=== PATIENT | female | born 1945 | race Caucasian/White ===

== ENCOUNTER → 2017-10-14 09:15 | Outpatient (CLI) | payer MEDICARE, OTHER, SELFPAY ==
--- NOTE | 2017-10-14 09:23 | RAD_ITS ---
STUDY: X-RAY - LEFT KNEE REASON FOR EXAM: Female, 72 years old. Pain and swelling TECHNIQUE: 4 view(s) of the knee. COMPARISON: None. FINDINGS: Normal visualized distal femur. Normal visualized proximal tibia and fibula. Normal proximal tibiofibular articulation. Normal medial femorotibial compartment. Normal lateral femorotibial compartment. Normal patellofemoral articulation. The soft tissue structures are unremarkable. RAD/Knee 4 or More Views IMPRESSION: Normal x-ray examination of the knee. Electronically Signed: Arturo Rome MD at 9:56 EDT , Service support ,
== END ==
PROVIDERS: Family Provider Internal Medicine; PCP Internal Medicine; Visit Provider Internal Medicine
DX: M25.562 Pain in left knee (principal)
CPT/HCPCS: 73564

== ENCOUNTER → 2017-10-16 05:57 | Outpatient (CLI) | payer MEDICARE, OTHER, SELFPAY ==
[2017-10-16 07:19] LABS: Absolute Neutrophil Count 2.7 X10^3/uL (2.0-7.7); Basophil# 0.03 X10^3/uL; Basophil% 0.7 % (0-1); Eosinophil# 0.24 X10^3/uL; Eosinophils% 5.3 % (0-5); Hematocrit 40.8 % (37-47); Hemoglobin 13.1 g/dl (12.0-15.0); Lymphocyte % 26.3 % (19-41); Mean Corp Hgb Conc 32.1 g/gl (32-36); Mean Corpuscular Hgb 29.1 pg (27.0-32.0); Mean Corpuscular Volume 90.7 fL (81-99); Mean Platelet Vol. 9.6 fl (6.2-12.0); Monocyte# 0.38 X10^3/uL; Monocyte% 8.3 % (0-10); Neutrophil # 2.72 X10^3/uL (2.7-7.7); Neutrophil % 59.4 % (47-70); Platelet Count 237 K/mm3 (150-450); RBC Distribution Width CV 12.8 % (11.6-14.6); RBC Distribution Width SD 42.5 fl (35.1-43.9); White Blood Count 4.6 K/mm3 (4.4-11.0)
[2017-10-16 07:20] LABS: POSITIVE COUNT NO; POSITIVE DIFFERENTIAL NO; POSITIVE MORPHOLOGY NO
[2017-10-16 07:34] LABS: ALB/GLOB Ratio 1.1 RATIO (0.9-2.4); AST(SGOT) 21 U/L (15-37); Alanine Aminotransfer ALT/SGPT 25 U/L (13-56); Albumin, Serum 3.9 g/dL (3.2-5.0); Alkaline Phosphatase 65 U/L (45-117); Anion Gap 5 (5-15); BUN 17 mg/dL (7-18); BUN/Creat Ratio 22.6 RATIO (10-20); Chloride 102 mmol/L (98-107); Creatinine, Serum 0.75 mg/dL (0.55-1.02); EST Glomerular Filtration Rate 81 mL/min (>60); Est Glom Filt Rate - Afr Amer 98 mL/min (>60); Globulin 3.5 g/dL (2.2-4.2); Glucose 96 mg/dL (74-106); Potassium 3.8 mmol/L (3.5-5.1); Protein, Total 7.4 g/dL (6.4-8.2); Rheumatoid Factor < 10.0 IU/mL (<15); Sodium Level 138 mmol/L (136-145)
[2017-10-16 07:40] LABS: Microalbumin,Random Urine < 5.0 mg/L (NO RANGE EST.)
[2017-10-17 14:27] LABS: Hep C Antibodies 0.1 s/co ratio (0.0-0.9)
[2017-10-18 12:08] LABS: CHOLESTEROL TOTAL 164 mg/dL (100-199); HDL-C 56 mg/dL (>39); HDL-P TOTAL 38.3 umol/L (>=30.5); SMALL LDL-P 538 nmol/L (<=527); TRIGLYCERIDES 86 mg/dL (0-149)
[2017-10-18 13:00] LABS: LDL SIZE 20.4 nm (>20.5); LDL-C 91 mg/dL (0-99); LDL-P 1173 nmol/L (<1000); LP-IR SCORE ** 37 (<=45)
== END ==
PROVIDERS: Family Provider Internal Medicine; PCP Internal Medicine; Visit Provider Internal Medicine
DX: I10 Essential (primary) hypertension (principal); E78.5 Hyperlipidemia, unspecified; R73.01 Impaired fasting glucose; M25.50 Pain in unspecified joint; Z11.59 Encounter for screening for other viral diseases
CPT/HCPCS: 36415; 80053; 80061; 82043; 82570; 83704; 85025; 86431; 86803

== ENCOUNTER → 2017-10-16 10:27 | Outpatient (CLI) | payer MEDICARE, OTHER, SELFPAY ==
--- NOTE | 2017-10-16 10:44 | VDLE_ITS ---
Reason For Study: LEG PAIN RIGHT LEFT CFV is compressible, spontaneous, phasic, GSV is normal. competent and demonstrates normal CFV is compressible, spontaneous, phasic, augmentation. competent, and demonstrates normal Procedure augmentation. Exam performed in department. FV is compressible, spontaneous, phasic, A preliminary report was called and/or faxed competent and demonstrates normal to Dr. Maria. augmentation. POP V is compressible, spontaneous, phasic, competent and demonstrates normal augmentation. T/P Trunk is compressible. PTV is compressible. LT PerV is compressible. Interpretation Summary Deep veins of the left lower extremity are patent and compressible segmentally. There is no evidence of left lower extremity deep vein thrombosis. Valvular competence appears intact within the proximal deep venous system on the left . The left greater saphenous vein appears patent and compressible segmentally. Ordering Physician: Lexi Maria Referring Physician: Lexi Maria Performed By: Neda Patino RVT
== END ==
PROVIDERS: Family Provider Internal Medicine; PCP Internal Medicine; Visit Provider Internal Medicine
DX: M79.89 Other specified soft tissue disorders (principal); M25.462 Effusion, left knee; I10 Essential (primary) hypertension; E78.5 Hyperlipidemia, unspecified; R73.01 Impaired fasting glucose; M25.50 Pain in unspecified joint; Z11.59 Encounter for screening for other viral diseases
CPT/HCPCS: 36415; 80053; 80061; 82043; 82570; 83704; 85025; 86431; 86803; 93971

== ENCOUNTER → 2017-10-18 13:30 | Outpatient (CLI) | payer MEDICARE, OTHER, SELFPAY ==
--- NOTE | 2017-10-18 13:38 | MRI_ITS ---
STUDY: MRI LEFT KNEE REASON FOR EXAM: Female, 72 years old. Pain and tenderness TECHNIQUE: Standardized fat and water weighted pulse sequences were obtained in all 3 orthogonal planes. COMPARISON: None. FINDINGS: Normal medial meniscus. Normal hyaline cartilage of the medial femorotibial compartment. Normal medial femoral condyle and tibial plateau. There is a partial sprain of the MCL with interstitial and periligamentous edema, series 6 images - 15. Normal distal semimembranosus, gracilis and semitendinosus tendons. Lateral meniscus tear of the anterior horn and body, series 6 images through . Normal hyaline cartilage of the lateral femorotibial compartment. Normal lateral femoral condyle and tibial plateau. Normal proximal tibiofibular articulation. Normal lateral collateral (fibular) ligament. Normal popliteus tendon. Normal biceps femoris tendon. Normal anterior cruciate ligament (ACL). Normal posterior cruciate ligament (PCL). There is arthrosis of the patellofemoral articulation. There is diffuse, greater than 50% thickness articular cartilage loss of the patellofemoral compartment. Normal medial and lateral patellar retinaculum. Normal quadriceps tendon. Normal patellar tendon. Normal Hoffa's fat pad. There is a moderate volume joint effusion. The soft tissues are unremarkable. The otherwise visualized osseous structures are unremarkable. MRI/Lower Ext Joint Only (Routine) IMPRESSION: Lateral meniscus tear. Medial collateral ligament sprain. Joint effusion with popliteal cyst. Electronically Signed: Marin Tierney MD at 14:53 EDT , Service support ,
== END ==
PROVIDERS: Family Provider Internal Medicine; PCP Internal Medicine; Visit Provider Orthopaedic Surgery
DX: M25.562 Pain in left knee (principal)
CPT/HCPCS: 73721

== ENCOUNTER → 2017-10-28 06:54 | Outpatient (CLI) | payer MEDICARE, OTHER, SELFPAY ==
--- NOTE | 2017-10-28 07:01 | BI_ITS ---
MAMMOGRAPHY - BILATERAL SCREENING REASON FOR EXAM: Female, 72 years old. Routine annual screening examination. PERTINENT HISTORY: Remote left excisional breast biopsy. TECHNIQUE: Digital bilateral breast haroldo (3D mammographic acquisition) in the CC and MLO projections. 2-D mediolateral oblique (MLO) and craniocaudad (CC) views of both breasts were obtained. CAD: Full Field Digital Mammography with Computer Added Detection was performed. COMPARISON: Comparison is made with prior study dated October 10, 2016 and September 05, 2015. FINDINGS: Breast Composition: The breasts are heterogeneously dense, which may obscure small masses. There are no dominant masses or suspicious calcifications. No other significant abnormalities are identified. There has been no significant change since the prior study. BI/SCREENING MAMM (CAD), BILAT IMPRESSION: Stable bilateral screening mammogram. Yearly follow-up mammogram recommended. (A) ASSESSMENT CATEGORY: BIRADS Category 1: Negative. A letter regarding these results will be sent to the patient by the facility within 30 days. Approximately 10% of breast cancers are not detected by mammography. A normal mammogram should not delay biopsy of a clinically suspicious abnormality. [id number] Electronically Signed: Kvng Gilman MD at 8:48 EDT Tel [phone], Service support ,
== END ==
PROVIDERS: Family Provider Internal Medicine; PCP Internal Medicine; Visit Provider Internal Medicine
DX: Z12.31 Encounter for screening mammogram for malignant neoplasm of breast (principal)
CPT/HCPCS: 77063; 77067

== ENCOUNTER → 2018-01-08 07:11 | Outpatient (CLI) | payer MEDICARE, OTHER, SELFPAY ==
--- NOTE | 2018-01-08 07:15 | CT_ITS ---
STUDY: CT ABDOMEN WITH CONTRAST REASON FOR EXAM: Female, 72 years old. Pain. Follow-up wall thickening of the colon. RADIATION DOSAGE (If Supplied By Facility): CTDIvol = ( 11.91 ) mGy, DLP = ( 372.05 ) mGycm TECHNIQUE: Transaxial images were obtained post I.V. administration of 100 ml of Isovue 300 contrast, and without oral contrast. Sagittal and coronal images were reconstructed. Individualized dose optimization techniques were used for this CT. COMPARISON: June 06, 2017 FINDINGS: The visualized lung bases are unremarkable. The visualized portions of the heart are within normal limits. Normal liver. Normal gallbladder and extrahepatic biliary system. Normal spleen. Normal pancreas. Normal bilateral adrenal glands. Normal right kidney. Normal left kidney. Normal visualized stomach. Normal small intestine. There are multiple colonic diverticula consistent with diverticulosis. There is resolution of previously noted wall thickening on the left. The appendix is visualized and appears normal. There is diffuse atherosclerotic calcification of the abdominal aorta, without a demonstrated aneurysm. Normal inferior vena cava. Normal retroperitoneum. Normal abdominal wall. Mild degenerative change of the spine. CT/Abdomen WITH IV Contrast IMPRESSION: Colonic diverticulosis. Improvement of previously noted wall thickening. No obstruction. Electronically Signed: Marin Tierney MD at 1:51 EDT , Service support ,
[2018-01-08 07:36] LABS: CREATININE FINGERSTICK 0.7 mg/dL (0.55-1.02); EGFR FINGERSTICK > 60.0000 mL/min (>60)
== END ==
PROVIDERS: Family Provider Internal Medicine; PCP Internal Medicine; Visit Provider Internal Medicine
DX: Z12.31 Encounter for screening mammogram for malignant neoplasm of breast (principal); R93.5 Abnormal findings on diagnostic imaging of other abdominal regions, including retroperitoneum
CPT/HCPCS: 74160; Q9967

== ENCOUNTER → 2018-01-29 06:08 | Outpatient (CLI) | payer MEDICARE, OTHER, SELFPAY ==
[2018-01-29 06:14] LABS: Bacteria 0 SEEN /hpf (None Seen); Mucous, Urine 0 SEEN /hpf (<or=2+); Red Blood Cells-Urine 0 SEEN /hpf (0-5); Squamous Epithelial Cells - UA 0 SEEN /hpf (5-10); White Blood Cells 0 SEEN /hpf (0-5)
[2018-01-29 07:59] LABS: ALB/GLOB Ratio 1.2 RATIO (0.9-2.4); AST(SGOT) 24 U/L (15-37); Alanine Aminotransfer ALT/SGPT 28 U/L (13-56); Alkaline Phosphatase 63 U/L (45-117); Anion Gap 7 (5-15); BUN 22 mg/dL (7-18); BUN/Creat Ratio 28.6 RATIO (10-20); Calcium,Total 9.2 mg/dL (8.5-10.1); Chloride 105 mmol/L (98-107); Creatinine, Serum 0.77 mg/dL (0.55-1.02); EST Glomerular Filtration Rate 79 mL/min (>60); Est Glom Filt Rate - Afr Amer 95 mL/min (>60); Globulin 3.4 g/dL (2.2-4.2); Glucose 89 mg/dL (74-106); Potassium 3.7 mmol/L (3.5-5.1); Protein, Total 7.4 g/dL (6.4-8.2); Sodium Level 142 mmol/L (136-145)
[2018-01-29 08:03] LABS: Color, Urine Yellow (Yellow); Glucose, Dipstick Normal (Normal); Ketone-Dipstick Negative (Negative); Leukocyte Esterase-Dipstick 25 /ul (Negative); Nitrite-Dipstick Negative (Negative); Occult Blood-Urine 10 /ul (Negative); Protein-Dipstick Negative (Negative); Specific Gravity, Urine 1.005 (1.002-1.030); Urine Bilirubin Dipstick Negative (Negative); Urine Clarity Clear (Clear); Urine Urobilinogen Normal (Normal); Urine pH 6.5 (5.0 - 8.0)
[2018-01-29 08:24] LABS: Vitamin D,25 Hydroxy 35.3 ng/mL (29.95-100.01)
[2018-01-31 12:08] LABS: CHOLESTEROL TOTAL 174 mg/dL (100-199); HDL-C 61 mg/dL (>39); HDL-P TOTAL 37.6 umol/L (>=30.5); SMALL LDL-P 383 nmol/L (<=527); TRIGLYCERIDES 110 mg/dL (0-149)
[2018-01-31 14:10] LABS: LDL SIZE 20.8 nm (>20.5); LDL-C 91 mg/dL (0-99); LDL-P 1173 nmol/L (<1000); LP-IR SCORE ** <25 (<=45)
== END ==
PROVIDERS: Family Provider Internal Medicine; PCP Internal Medicine; Visit Provider Internal Medicine
DX: I10 Essential (primary) hypertension (principal); E78.5 Hyperlipidemia, unspecified; R31.9 Hematuria, unspecified; M85.80 Other specified disorders of bone density and structure, unspecified site
CPT/HCPCS: 36415; 80053; 80061; 81001; 82306; 83704; 87086

== ENCOUNTER → 2018-02-12 09:54 | Outpatient (CLI) | payer MEDICARE, OTHER, SELFPAY ==
--- NOTE | 2018-02-12 09:56 | US_ITS ---
STUDY: ULTRASOUND TRANSVAGINAL CLINICAL: Female, 72 years old. Pelvic pain TECHNIQUE: Transvaginal COMPARISON: None. FINDINGS: Normal uterine size measuring 5.7 cm in maximal craniocaudal dimension. There are no myometrial masses. Uterus is retroverted Endometrial thickness is abnormal at 7 mm. It is fluid distended and there is a hypoechoic likely polyp measuring 0.6 x 0.8 x 0.5 cm. Normal uterine cervix. Normal right ovary, measuring 2.2 x 1.1 x 1.2 cm cm. There are multiple follicles without a dominant cyst. Left ovary was previously removed There is no free fluid in the pelvis. US/Pelvic (Non ) IMPRESSION: Abnormal endometrial stripe thickening at 7 mm. The endometrium is fluid distended and there is suggestion of underlying mass. Endometrial carcinoma needs to be excluded. Biopsy recommended for further evaluation Although the left ovary has been previously removed, there is a left paraovarian cyst measuring 0.8 x 0.8 x 0.7 cm. No demonstrated free fluid Electronically Signed: Arturo Rome MD at 11:45 EDT , Service support ,
--- NOTE | 2018-02-12 10:36 | US_ITS ---
STUDY: ULTRASOUND TRANSVAGINAL CLINICAL: Female, 72 years old. Pelvic pain TECHNIQUE: Transvaginal COMPARISON: None. FINDINGS: Normal uterine size measuring 5.7 cm in maximal craniocaudal dimension. There are no myometrial masses. Uterus is retroverted Endometrial thickness is abnormal at 7 mm. It is fluid distended and there is a hypoechoic likely polyp measuring 0.6 x 0.8 x 0.5 cm. Normal uterine cervix. Normal right ovary, measuring 2.2 x 1.1 x 1.2 cm cm. There are multiple follicles without a dominant cyst. Left ovary was previously removed There is no free fluid in the pelvis. US/Transvaginal Non- IMPRESSION: Abnormal endometrial stripe thickening at 7 mm. The endometrium is fluid distended and there is suggestion of underlying mass. Endometrial carcinoma needs to be excluded. Biopsy recommended for further evaluation Although the left ovary has been previously removed, there is a left paraovarian cyst measuring 0.8 x 0.8 x 0.7 cm. No demonstrated free fluid Electronically Signed: Arturo Rome MD at 11:45 EDT , Service support ,
== END ==
PROVIDERS: Family Provider Internal Medicine; PCP Internal Medicine; Visit Provider Internal Medicine
DX: R10.2 Pelvic and perineal pain (principal)
CPT/HCPCS: 76830; 76856

== ENCOUNTER 2018-03-26 10:53 | Day surgery (SDC) | payer MEDICARE, OTHER, SELFPAY ==
[2018-03-19 11:58] LABS: Hematocrit 38.2 % (37-47); Hemoglobin 12.4 g/dl (12.0-15.0); Mean Corp Hgb Conc 32.5 g/gl (32-36); Mean Corpuscular Volume 89.5 fL (81-99); Mean Platelet Vol. 9.1 fl (6.2-12.0); Platelet Count 242 K/mm3 (150-450); RBC Distribution Width CV 12.7 % (11.6-14.6); Red Blood Count 4.27 M/mm3 (4.2-5.4); Scan Indicated on CBC? Y/N NO; White Blood Count 5.9 K/mm3 (4.4-11.0)
--- NOTE | 2018-03-26 | EMB_PTH ---
PATIENT: JONATHAN PURCELL [place] [facility] [id number] AGE/SX: 73/F ROOM: RE03/26/[address]: Dr. Stephanie Snyder MD : [id number] BED: DIS: 03/26/2018 SPEC #: [id number] RECD: 03/26/18 14:44 STATUS: CORI REParviz #: [id number] LAKESHIA: 03/26/18 00:[address]: Stephanie Snyder DEPT: SURGICAL PATHOLOGY RECD BY: Arnulfo Lugo ENTERED: 03/26/18 14:44 SP TYPE: ENDOM BX/C OTHR DR: Dr. Lexi Maria DO Tissues: Endometrium, NOS Procedures: Surgery Specimen Level IV HEADER OPERATION: Hysteroscopy, dilation and curettage, poss. polypectomy PRE-OP DIAGNOSIS: Abnormal pelvic ultrasound TISSUE SUBMITTED: Endometrial curettings and polyp MICROSCOPIC DIAGNOSIS Endometrial curettings and polyp: Benign endometrial polyp (0.4 cm in greatest dimension). Scant strips of benign endometrial epithelium, consistent with atrophic endometrium.. Fragments of blood clot and fibrovascular tissue. See comment. LYLE:anand 03/27/18 COMMENT The specimen predominantly consists of blood clots. MICROSCOPIC DESCRIPTION Slides are reviewed. GROSS DESCRIPTION Received in fixative is one container labeled with the patient's name and designated endometrial curettings and polyp. The specimen consists of multiple irregular fragments of red-pink soft tissue that in aggregate measure 2.2 x 2 x 0.2 cm. The specimen is totally submitted in one cassette. / AM:anand 03/26/18 TC:5 CPT: 68403
[2018-03-26 11:27] VITALS: BP 121/64; PULSE 58; RESP 16; TEMP 36.7; O2SAT 99; BMI 26.1
--- NOTE | 2018-03-26 13:06 | PCM.DC.D&C ---
Discharge Diet: No Restrictions Discharge Activity: May Shower, May Take a Tub Bath Lifting Restrictions: none Additional Activity Instructions:: Return to all usual activity as comfortable on 03/27/18. Take tylenol 500 - 1000 mg every 8 hrs as needed for milder cramping. You may add EITHER two Aleve (220 mg ea) or Three (200 mg tab) Ibuprofen every 8 hr for more severe pain. Call your doctor if you observe: Fever of 101 or Higher, Using more than one pad per hour, Uncontrolled pain Allergies/Adverse Reactions: Allergies No Known Allergies Allergy (Verified 03/19/18 09:13) Medications to take at Discharge Aspirin [Aspirin, Baby] 81 mg PO DAILY@0800 03/19/18 Levothyroxine [Synthroid] 100 mcg PO DAILY 03/19/18 Losartan Potassium [Losartan Potassium] 100 mg PO DAILY 03/19/18 Omeprazole [Omeprazole] 40 mg PO DAILY 03/19/18 Rosuvastatin Calcium [Rosuvastatin Calcium] 10 mg PO DAILY 03/19/18 Primary Care Physician: Lexi Maria DO [Primary Care Provider] - Test Results: Test results from this visit will be discussed in further detail at your follow-up appointment, if applicable. Please Follow Up With: Stephanie Snyder MD - [phone] When: in two weeks for postop check up.
[2018-03-26 13:10] VITALS: BP 108/51; BP 121/64; PULSE 57; RESP 16; TEMP 36.6; O2SAT 96
[2018-03-26 13:15] VITALS: BP 121/64; BP 122/59; PULSE 59; RESP 16; O2SAT 94
[2018-03-26 13:20] VITALS: BP 121/64; BP 133/61; PULSE 57; RESP 16; O2SAT 94
[2018-03-26 13:24] VITALS: BP 121/64; BP 136/62; PULSE 61; RESP 16; TEMP 36.2; O2SAT 96
--- NOTE | 2018-03-26 13:30 | PCM.OP.BLANK ---
Operative Report Date of Procedure: 03/26/18 PROCEDURE: Hysteroscopy, Dilation and curettage, Endometrial polypectomy Preoperative Diagnosis: Thickened endometrial stripe on pelvic ultrasound 7 mm with suggestion of small polyp Postop diagnosis: Thickened endometrial stripe on pelvic ultrasound 7 mm with suggestion of small polyp Anesthesia: MAC IV sedation Idalia Linares CRNA 10 cc 1% lidocaine paracervical block (Juan Snyder) Surgeon: Stephanie Snyder MD EBL: Minimal for case Drains: Red Izaguirre, minimal clear yellow urine 25 cc Complications: none Fluids: replacement Findings: Atrophic appearing cervix, not stenotic. Normal appearing atrophic endometrium. Tubal ostia visualized, atrophic Multiple diverticula noted c/w probable adenomyosis Endometrial polyp, benign appearing, at L anterior lower uterine segment, nonfriable . removed in multiple pieces. Narrative account After the R,B,Alternatives of the procedure were reviewed with the patient , informed consent was obtained. The patient was taken to the operating room with an IV running and placed in dorsal supine position of the operating table. She was given MAC IV sedation and repositioned to the dorsal lithotomy position and prepped and draped in the usual sterile fashion. A graves speculum was placed into the vagina and the cervix was brought into view. The cervix was atrophic appearing. The cervix was instilled with 10 cc of 1% lidocaine as a paracervical block using a 20 G spinal needle. A single toothed tenaculum was applied to the posterior lip of the cervix. The cervix was then gently probed and sequentially dilated to allow admission of the hysteroscope into the endometrial cavity. The hysteroscopy was performed with findings noted as above. There was an endometrial polyp noted. A polypectomy and sharp curettage was performed and pieces of tissue were withdrawn and set aside. The hysteroscope was again inserted and confirmed that the polyp was removed. One final pass was conducted with the sharp curette tip advanced through the cervix to the uterine fundus . Excellent hemostasis was noted. The single toothed tenaculum was removed from the cervix and a RayTec was used to remove any remaining tissue and blood from the upper vagina and cervix. The procedure was terminated. The speculum was removed. The patient was returned to dorsal supine position and awakened from IV sedation and transferred to her recovery room bed in stable condition after tolerating the procedure well. Sponge, lap, needle and instrument counts were correct x two. medications given intraoperatively included 10 cc of 1% lidocaine without epinephrine instilled as a paracervical block. For a complete listing of the medications given intraoperatively, see the anesthesia record.
[2018-03-26 14:00] VITALS: BP 121/64
== END 2018-03-26 14:00 | disposition home or self-care (01) ==
LOC: SDC 10:54
PROVIDERS: Family Provider Internal Medicine; PCP Internal Medicine; Visit Provider Obstetrics & Gynecology
PROC: 0UDB8ZZ Extraction of Endometrium, Via Natural or Artificial Opening Endoscopic (ICD-10-PCS; CPT 58558; principal; 2018-03-26 12:20)
DX: N84.0 Polyp of corpus uteri (principal); N85.8 Other specified noninflammatory disorders of uterus; I10 Essential (primary) hypertension; E03.9 Hypothyroidism, unspecified; E78.5 Hyperlipidemia, unspecified; H40.9 Unspecified glaucoma; K21.9 Gastro-esophageal reflux disease without esophagitis; Z79.82 Long term (current) use of aspirin; Z78.0 Asymptomatic menopausal state; Z79.899 Other long term (current) drug therapy; Z87.19 Personal history of other diseases of the digestive system
CPT/HCPCS: 58558; 36415; 85027; 86850; 86900; 88305; J7120; J2405

== ENCOUNTER 2018-05-16 14:30 | Outpatient (RCR) | payer MEDICARE, OTHER, SELFPAY ==
--- NOTE | 2018-04-29 11:57 | HP.PTEVAL_ITS ---
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 Date of Evaluation: 04/29/18 Physical Therapist: Luna Fisher - Visit Plan Frequency: 2x /Week Duration: 4-6 Weeks Plan: 2X/ week for 4-6 weeks for increase in L knee AROM, L hip and knee strength, decrease L knee swelling, gait training with HEP - Subjective Subjective: She reports that in the Spring she went to the Dr. Pt reports that she has a small tear on the L knee. Dr mentioned PT but did not do anything at the time. Swwelling is still there and she has a click in her knee. If she sits for awhile and gets up she says that it is hard. She does not want to have surgery. Pt does not really have pain but she goes to turn and will feel that her knee makes a noise or if she turns over in bed she will get a catch. She had a plantar fascitis surgery and is was worse afterwards. It seems better now. She has not done any exercise as of yet. She has a brace for her L knee but not sure what kind and it does help. - Pain L knee pain Pain Intensity (Out of 10): 0 Pain Intensity Range: 2 Comment: with certain movements - Objective Gait: walks with decrease stance time on the L. L knee AROM -4 degrees L knee ext and 123 degrees L knee Flexion. R knee AROM: 0 degrees R knee ext and 140 degrees R knee flexion. tib tuberosity R 33 cm and L 34 cm. Tight B hip flexor/ quad. Tight B HS. LE MMT: hip flex B 4/5, Knee ext B 4/5, B knee ext 4-/5, B hip abd 4/5, B hip ext 4-/5 - Goals Goal 1:: I HEP Goal Time Frame: 4-6 Weeks Goal 2:: Increase L knee AROM 0-130 degrees L knee flexion Goal Time Frame: 4-6 Weeks Goal 3:: Walk with normal gait pattern with equal stance time Goal Time Frame: 4-6 Weeks Goal 4:: Decrease freq of clicking of the L knee with gait Goal Time Frame: 4-6 Weeks - Rehabilitation Potential Rehabilitation Potential: Good - Anticipated Interventions Patient/Client Instruction: Educate patient on: Condition, Plan of Care For the Purpose of:: To decrease pain, To decrease swelling/inflammation, To increase ROM, To improve nutrient delivery to tissue, To improve muscle performance and motor function, To improve ability to perform ADL's, To improve gait and locomotor functions, To improve health of tissue, To increase flexibility/ROM Therapeutic Exercise to Include: Strength training, Flexibilty training, Gait and locomotor training, Active ROM For the Purpose of:: To decrease pain, To decrease swelling/inflammation, To increase ROM, To improve nutrient delivery to tissue, To improve muscle performance and motor function, To improve ability to perform ADL's, To improve gait and locomotor functions, To improve health of tissue, To increase flexibility/ROM Other electric stimulation: Yes Cryotherapy (ice pack, ice massage): Yes Thermo therapy (hot pack): Yes Ultrasound (thermal/non thermal): Yes For the Purpose of:: To decrease pain, To decrease swelling/inflammation, To in crease ROM, To improve nutrient delivery to tissue Thank you for the opportunity to evaluate your patient. For Medicare and Medicare HMO plans, please review the plan of care and approve it. It will need to be FAXED BACK to us at [phone] for Medicare purposes. Please let me know if there are questions or concerns regarding this plan of care. Physician Signature: Date:
--- NOTE | 2018-10-22 15:56 | HP.PT.NRP ---
HP - Discharge Summary (1) - Patient Information JONATHAN PURCELL was seen in my office for initial evaluation on 04/29/18. The following Plan of Care was established for this patient: Initial Frequency: 2x /Week Initial Duration: 4-6 Weeks - Anticipated Interventions Patient/Client Instruction: Educate patient on: Condition, Plan of Care For the Purpose of:: To decrease pain, To decrease swelling/inflammation, To increase ROM, To improve nutrient delivery to tissue, To improve muscle performance and motor function, To improve ability to perform ADL's, To improve gait and locomotor functions, To improve health of tissue, To increase flexibility/ROM Therapeutic Exercise to Include: Strength training, Flexibilty training, Gait and locomotor training, Active ROM For the Purpose of:: To decrease pain, To decrease swelling/inflammation, To increase ROM, To improve nutrient delivery to tissue, To improve muscle performance and motor function, To improve ability to perform ADL's, To improve gait and locomotor functions, To improve health of tissue, To increase flexibility/ROM Other electric stimulation: Yes Cryotherapy (ice pack, ice massage): Yes Thermo therapy (hot pack): Yes Ultrasound (thermal/non thermal): Yes For the Purpose of:: To decrease pain, To decrease swelling/inflammation, To increase ROM, To improve nutrient delivery to tissue This patient was last seen in our office 05/16/18. Pertinent comments regarding their Physical therapy will appear below: Pt did not come back. She repoerted feeling better at her last visit. DC PT At this point I will be discontinuing this patient from physical therapy. I would be happy to see this patient again in the future if found appropriate by the physician. Thank you! Luna Fisher, MPT
== END 2018-05-16 19:00 | disposition home or self-care (01) ==
LOC: PT 14:30
PROVIDERS: Family Provider Internal Medicine; PCP Internal Medicine; Referring Provider Orthopaedic Surgery; Visit Provider Orthopaedic Surgery
DX: S83.282D Other tear of lateral meniscus, current injury, left knee, subsequent encounter (principal); S83.412D Sprain of medial collateral ligament of left knee, subsequent encounter
CPT/HCPCS: 97110; 97161

== ENCOUNTER → 2018-05-23 08:20 | Outpatient (CLI) | payer MEDICARE, OTHER, SELFPAY ==
--- NOTE | 2018-05-23 08:39 | EKG12_ITS ---
Test Reason : PRE-OP Blood Pressure : / mmHG Vent. Rate : 055 BPM Atrial Rate : 055 BPM P-R Int : 152 ms QRS Dur : 092 ms QT Int : 404 ms P-R-T Axes : 026 000 -05 degrees QTc Int : 386 ms Sinus bradycardia Otherwise normal ECG Confirmed by ASHLY JORGE, JACE ([id number]), acquisition editor BRICE CLAYTON ([id number]) on 05/26/2018 3:58:19 PM Referred By: Blake Jon Confirmed By:JACE LIMON MD
[2018-05-23 08:50] LABS: Hematocrit 38.7 % (37-47); Hemoglobin 12.8 g/dl (12.0-15.0); Mean Corp Hgb Conc 33.1 g/gl (32-36); Mean Corpuscular Hgb 29.6 pg (27.0-32.0); Mean Corpuscular Volume 89.4 fL (81-99); Mean Platelet Vol. 9.1 fl (6.2-12.0); Platelet Count 240 K/mm3 (150-450); RBC Distribution Width CV 12.6 % (11.6-14.6); RBC Distribution Width SD 40.5 fl (35.1-43.9); Red Blood Count 4.33 M/mm3 (4.2-5.4); White Blood Count 5.1 K/mm3 (4.4-11.0)
[2018-05-23 08:51] LABS: Scan Indicated on CBC? Y/N NO
[2018-05-23 09:24] LABS: Anion Gap 7 (5-15); BUN 17 mg/dL (7-18); Calcium,Total 8.9 mg/dL (8.5-10.1); Chloride 106 mmol/L (98-107); Creatinine, Serum 0.77 mg/dL (0.55-1.02); EST Glomerular Filtration Rate 78 mL/min (>60); Est Glom Filt Rate - Afr Amer 95 mL/min (>60); Glucose 94 mg/dL (74-106); Potassium 3.9 mmol/L (3.5-5.1); Sodium Level 141 mmol/L (136-145)
== END ==
PROVIDERS: Family Provider Internal Medicine; PCP Internal Medicine; Referring Provider Orthopaedic Surgery; Visit Provider Orthopaedic Surgery
DX: Z01.810 Encounter for preprocedural cardiovascular examination (principal); Z01.818 Encounter for other preprocedural examination
CPT/HCPCS: 36415; 80048; 85027; 93005

== ENCOUNTER → 2018-06-24 12:49 | Outpatient (CLI) | payer MEDICARE, OTHER, SELFPAY ==
--- NOTE | 2018-06-24 12:52 | ECHOD_ITS ---
Reason For Study: NON RHEUMATIC MITRAL REGURGITATION Procedure This was a 2D Doppler, Color Flow transthoracic echocardiogram. The exam was of adequate technical quality. Exam performed in department. Left Ventricle Normal LV size. Left ventricular systolic function is normal. The estimated ejection fraction is 65 %. Diastolic function is indeterminate. No regional wall motion abnormalities noted. Right Ventricle Normal RV size. Normal systolic function. Atria Normal left atrium. Normal right atrium. No doppler evidence for ASD. Mitral Valve There is no mitral annular calcification. Mild diffuse mitral valve thickening. Mild-Moderate (1-2+) mitral valve insufficiency. Tricuspid Valve Normal tricuspid valve. Mild to moderate (1-2+) tricuspid valve insufficiency. Right ventricular systolic pressure estimated to be 31 mmHg. Aortic Valve Trisinus/trileaflet aortic valve. Mild focal aortic valve calcification. Trivial aortic valve insufficiency. Pulmonic Valve The pulmonic valve is not well visualized. Mild (1+) pulmonic valve insufficiency. Great Vessels Normal sized aortic root. Calcified aortic root. Pericardium/Pleural Trivial pericardial effusion. There are no echocardiographic indications of cardiac tamponade. MMode/2D Measurements & Calculations LVIDd: 4.8 cm IVSd: 0.87 cm Ao root diam: 3.1 cm LVIDs: 2.4 cm LVPWd: 0.70 cm RVDd: 3.2 cm FS: 49.4 % LAV(MOD-bp): 38.3 ml LVAd ap4: 23.5 cm2 SV(MOD-sp4): 42.8 ml LAV(MOD-bp) Indexed: 22.3 ml/m2 EDV(MOD-sp4): 65.0 ml LAV(MOD-sp2): 44.4 ml EDV(sp4-el): 67.5 ml LAV(MOD-sp4): 33.3 ml LVAs ap4: 12.1 cm2 ESV(MOD-sp4): 22.2 ml ESV(sp4-el): 22.6 ml EF(MOD-sp4): 65.9 % EF(sp4-el): 66.5 % SV(sp4-el): 44.9 ml LA A4 area: 14.1 cm2 LA dimension(2D): 3.8 cm RA A4 area: 10.3 cm2 Time Measurements MV dec time: 0.23 sec Doppler Measurements & Calculations MV E max dorian: 95.5 cm/sec Lat Peak E' Dorian: 6.7 cm/sec Med Peak E' Dorian: 7.3 cm/sec MV A max dorian: 123.6 cm/sec E/E' lat: 14.2 E/E' med: 13.1 MV E/A: 0.77 Ao V2 max: 179.4 cm/sec AI max dorian: 454.1 cm/sec LV V1 max: 140.9 cm/sec Ao max P.9 mmHg AI max P.5 mmHg LV V1 max P.9 mmHg AI dec slope: 188.6 cm/sec2 AI P1/2t: 705.4 msec PA V2 max: 111.0 cm/sec PI end-d dorian: 79.9 cm/sec TR max dorian: 265.0 cm/sec TR max P.3 mmHg Interpretation Summary Left ventricular systolic function is normal. The estimated ejection fraction is 65 %. Mild diffuse mitral valve thickening. Mild-Moderate (1-2+) mitral valve insufficiency. Mild to moderate (1-2+) tricuspid valve insufficiency. Mild focal aortic valve calcification. Trivial aortic valve insufficiency. Mild (1+) pulmonic valve insufficiency. Calcified aortic root. Trivial pericardial effusion. There are no echocardiographic indications of cardiac tamponade. Right ventricular systolic pressure estimated to be 31 mmHg. Diastolic function is indeterminate. Ordering Physician: Lexi Maria Referring Physician: Lexi Maria Performed By: Mayra Martinez RDCS
== END ==
PROVIDERS: Family Provider Internal Medicine; PCP Internal Medicine; Referring Provider Internal Medicine; Visit Provider Internal Medicine
DX: I34.0 Nonrheumatic mitral (valve) insufficiency (principal)
CPT/HCPCS: 93306

== ENCOUNTER → 2018-10-07 06:37 | Outpatient (CLI) | payer MEDICARE, OTHER, SELFPAY ==
[2018-10-07 07:31] LABS: Absolute Lymphocyte Count 1.12 X10^3/ul (0.83-4.51); Absolute Neutrophil Count 3.1 X10^3/uL (2.0-7.7); Basophil# 0.02 X10^3/uL; Basophil% 0.4 % (0-1); Eosinophils% 7.8 % (0-5); Hematocrit 40.7 % (37-47); Hemoglobin 13.3 g/dl (12.0-15.0); Lymphocyte # 1.12 X10^3/ul (4.0); Lymphocyte % 21.7 % (19-41); Mean Corp Hgb Conc 32.7 g/gl (32-36); Mean Corpuscular Hgb 29.3 pg (27.0-32.0); Mean Corpuscular Volume 89.6 fL (81-99); Mean Platelet Vol. 9.8 fl (6.2-12.0); Monocyte# 0.54 X10^3/uL; Monocyte% 10.5 % (0-10); Neutrophil # 3.06 X10^3/uL (2.7-7.7); Neutrophil % 59.4 % (47-70); Platelet Count 241 K/mm3 (150-450); RBC Distribution Width SD 42.1 fl (35.1-43.9); Red Blood Count 4.54 M/mm3 (4.2-5.4); White Blood Count 5.2 K/mm3 (4.4-11.0)
[2018-10-07 07:32] LABS: POSITIVE COUNT NO; POSITIVE DIFFERENTIAL NO; POSITIVE MORPHOLOGY NO
[2018-10-07 08:04] LABS: ALB/GLOB Ratio 1.1 RATIO (0.9-2.4); AST(SGOT) 24 U/L (15-37); Alanine Aminotransfer ALT/SGPT 30 U/L (13-56); Alkaline Phosphatase 68 U/L (45-117); Anion Gap 5 (5-15); BUN 19 mg/dL (7-18); BUN/Creat Ratio 25.9 RATIO (10-20); Calcium,Total 8.9 mg/dL (8.5-10.1); Chloride 105 mmol/L (98-107); Cholesterol 203 mg/dL (200); Creatinine, Serum 0.73 mg/dL (0.55-1.02); EST Glomerular Filtration Rate 83 mL/min (>60); Est Glom Filt Rate - Afr Amer 100 mL/min (>60); Globulin 3.6 g/dL (2.2-4.2); Glucose 104 mg/dL (74-106); High Density Lipoprotein 57 mg/dL; Potassium 3.9 mmol/L (3.5-5.1); Protein, Total 7.6 g/dL (6.4-8.2); Sodium Level 139 mmol/L (136-145); Triglycerides 173 mg/dL; Very Low Density Lipoprotein 35 mg/dL (5-40)
[2018-10-07 08:17] LABS: Hemoglobin A1c 5.8 % (4.2-6.3)
== END ==
PROVIDERS: Family Provider Internal Medicine; PCP Internal Medicine; Referring Provider Internal Medicine; Visit Provider Internal Medicine
DX: I10 Essential (primary) hypertension (principal); E78.5 Hyperlipidemia, unspecified; R73.01 Impaired fasting glucose
CPT/HCPCS: 36415; 80053; 80061; 83036; 85025

== ENCOUNTER → 2018-11-25 07:29 | Outpatient (CLI) | payer MEDICARE, OTHER, SELFPAY ==
--- NOTE | 2018-11-25 07:01 | BI_ITS ---
MAMMOGRAPHY - BILATERAL SCREENING REASON FOR EXAM: Female, 73 years old. Routine annual screening examination. PERTINENT HISTORY: Non-contributory. Remote left excisional breast biopsy. TECHNIQUE: Digital bilateral breast haroldo (3D mammographic acquisition) in the CC and MLO projections. 2-D mediolateral oblique (MLO) and craniocaudad (CC) views of both breasts were obtained. CAD: Full Field Digital Mammography with Computer Added Detection was performed. COMPARISON: Comparison is made with prior study dated October 28, 2017 and October 10, 2016. FINDINGS: Breast Composition: The breasts are heterogeneously dense, which may obscure small masses. There are no dominant masses or suspicious calcifications. No other significant abnormalities are identified. There has been no significant change since the prior study. BI/SCREENING MAMM (CAD), BILAT IMPRESSION: Stable bilateral screening mammogram. Yearly follow-up mammogram recommended. (A) ASSESSMENT CATEGORY: BIRADS Category 1: Negative. A letter regarding these results will be sent to the patient by the facility within 30 days. Approximately 10% of breast cancers are not detected by mammography. A normal mammogram should not delay biopsy of a clinically suspicious abnormality. [id number] Electronically Signed: Kvng Gilman, at 8:36 EDT , Service support ,
== END ==
PROVIDERS: Family Provider Internal Medicine; PCP Internal Medicine; Referring Provider Internal Medicine; Visit Provider Internal Medicine
DX: Z12.31 Encounter for screening mammogram for malignant neoplasm of breast (principal)
CPT/HCPCS: 77063; 77067

== ENCOUNTER → 2018-12-23 13:38 | Outpatient (CLI) | payer MEDICARE, OTHER, SELFPAY ==
--- NOTE | 2018-12-23 14:06 | VDLE_ITS ---
Reason For Study: edema RIGHT LEFT CFV is compressible, spontaneous, phasic, GSV is normal. competent and demonstrates normal CFV is compressible, spontaneous, phasic, augmentation. competent, and demonstrates normal Procedure augmentation. Exam performed in department. FV is compressible, spontaneous, phasic, The exam was diagnostic. competent and demonstrates normal A preliminary report was called and/or faxed augmentation. to Dr. Maria. POP V is compressible, spontaneous, phasic, competent and demonstrates normal augmentation. T/P Trunk is compressible. PTV is compressible. LT PerV is compressible. Heterogenous area behnd the knee measuring 2.65 x 1.38 x 4.65 cm. Area is nonvascular. Interpretation Summary Deep veins of the left lower extremity are patent and compressible segmentally. There is no evidence of left lower extremity deep vein thrombosis. Valvular competence appears intact within the proximal deep venous system on the left . The left greater saphenous vein appears patent and compressible segmentally. A non-vascular, heterogeneous structure is noted in the left popliteal space, measuring 2.65 cm x 1.38 cm x 4.65 cm. This may represent a popliteal cyst. Clinical correlation is advised. Ordering Physician: Lexi Maria Performed By: Anoop Painting RVT
== END ==
PROVIDERS: Family Provider Internal Medicine; PCP Internal Medicine; Referring Provider Internal Medicine; Visit Provider Internal Medicine
DX: R60.0 Localized edema (principal)
CPT/HCPCS: 93971

== ENCOUNTER → 2019-02-10 07:30 | Outpatient (CLI) | payer MEDICARE, OTHER, SELFPAY ==
[2019-02-10 08:40] LABS: Absolute Lymphocyte Count 1.16 X10^3/uL (0.83-4.51); Absolute Neutrophil Count 3.4 X10^3/uL (2.0-7.7); Basophil# 0.04 X10^3/uL; Basophil% 0.7 % (0-1); Eosinophil# 0.26 X10^3/uL; Eosinophils% 4.8 % (0-5); Hematocrit 40.3 % (37-47); Hemoglobin 13.4 g/dL (12.0-15.0); Lymphocyte # 1.16 X10^3/ul (4.0); Lymphocyte % 21.2 % (19-41); Mean Corp Hgb Conc 33.3 g/dL (32-36); Mean Corpuscular Hgb 29.1 pg (27.0-32.0); Mean Corpuscular Volume 87.4 fL (81-99); Mean Platelet Vol. 9.9 fl (6.2-12.0); NRBC Flagged by Analyzer 0 % (0-5); Neutrophil % 62.1 % (47-70); Platelet Count 274 K/mm3 (150-450); RBC Distribution Width CV 12.4 % (11.6-14.6); RBC Distribution Width SD 39.8 fl (35.1-43.9); Red Blood Count 4.61 M/mm3 (4.2-5.4); White Blood Count 5.5 K/mm3 (4.4-11.0)
[2019-02-10 09:04] LABS: Creatinine, Urine (random) < 13.00 mg/dL (NO RANGE EST.); Microalbumin,Random Urine < 5.0 mg/L (NO RANGE EST.)
[2019-02-10 09:13] LABS: Hemoglobin A1c 5.8 % (4.2-6.3)
[2019-02-10 09:17] LABS: ALB/GLOB Ratio 1.1 RATIO (0.9-2.4); AST(SGOT) 22 U/L (15-37); Alanine Aminotransfer ALT/SGPT 28 U/L (13-56); Albumin, Serum 3.9 g/dL (3.2-5.0); Alkaline Phosphatase 81 U/L (45-117); Anion Gap 8 (5-15); BUN 14 mg/dL (7-18); BUN/Creat Ratio 18.3 RATIO (10-20); Calcium,Total 9.4 mg/dL (8.5-10.1); Chloride 103 mmol/L (98-107); Cholesterol 180 mg/dL (200); Creatinine, Serum 0.77 mg/dL (0.55-1.02); EST Glomerular Filtration Rate 79 mL/min (>60); Est Glom Filt Rate - Afr Amer 95 mL/min (>60); Globulin 3.5 g/dL (2.2-4.2); Glucose 93 mg/dL (74-106); High Density Lipoprotein 56 mg/dL; Potassium 3.8 mmol/L (3.5-5.1); Protein, Total 7.4 g/dL (6.4-8.2); Sodium Level 141 mmol/L (136-145); Triglycerides 124 mg/dL; Very Low Density Lipoprotein 25 mg/dL (5-40)
== END ==
PROVIDERS: Family Provider Internal Medicine; PCP Internal Medicine; Referring Provider Internal Medicine; Visit Provider Internal Medicine
DX: E78.5 Hyperlipidemia, unspecified (principal); E03.9 Hypothyroidism, unspecified; R73.01 Impaired fasting glucose
CPT/HCPCS: 36415; 80053; 80061; 82043; 82570; 83036; 84443; 85025

== ENCOUNTER → 2019-02-24 12:34 | Outpatient (CLI) | payer MEDICARE, OTHER, SELFPAY ==
--- NOTE | 2019-02-24 12:45 | BD_ITS ---
STUDY: DUAL ENERGY X-RAY ABSORPTIOMETRY / DXA REASON FOR EXAM: Female, 73 years old. The patient is postmenopausal. Loss of height. TECHNIQUE: Bone Mineral Density (BMD) measurements of lumbar spine and bilateral hips were obtained. COMPARISON: Comparison is made with prior study dated April 03, 2012. FINDINGS: Lumbar Spine (L1-L4): g/cm2 (1.096) / T-score (-0.6) / Z-score (1.1) Findings are suggestive of normal bone density with a low fracture risk. Left Femur Total: g/cm2 (0.865) / T-score (-1.1) / Z-score (0.4) Left Femoral Neck: g/cm2 (0.742) / T-score (-2.1) / Z-score (-0.4) Right Femur Total: g/cm2 (0.892) / T-score (-0.9) / Z-score (0.6) Right Femoral Neck: g/cm2 (0.803) / T-score (-1.7) / Z-score (0.1) The T-Scores on the most recent prior examination were: Lumbar Spine (L1-L4): There has been improvement of bone density since the previous examination. Left Femur Total: which represents a worsening of 9.5%. Right Femur Total: which represents a worsening of 5%. BD/Dexa Bone Density Study IMPRESSION: The patient is considered osteopenic as outlined below according to World Bradford Organization (WHO) criteria with a moderate fracture risk. There has been worsening of bone density since the previous examination. Reference Information: The T-score is the number of standard deviations above or below the standard which is normal for young adults at their peak bone mineral density. The World Health Organization (WHO) interprets the T-scores as follows: Above -1 Normal bone density Between -1 and -2.5 Osteopenia Equal to / or below -2.5 Osteoporosis As a practical clinical guideline, osteopenia may be graded as follows: Mild -1 through -1.5 Moderate -1.6 through -2.0 Severe -2.1 through -2.4 The Z-score is the number of standard deviations above or below age-matched controls. A Z-score of less than -1.5 would be considered abnormal. References: 1. NIH Osteoporosis and Related Bone Diseases http://www.osteo.org 2. International Society for Clinical Densitometry http://www.iscd.org 3. National Osteoporosis Foundation http://www.nof.org Electronically Signed: Kvng Gilman, at 12:27 EDT , Service support ,
== END ==
PROVIDERS: Family Provider Internal Medicine; PCP Internal Medicine; Referring Provider Internal Medicine; Visit Provider Internal Medicine
DX: Z78.0 Asymptomatic menopausal state (principal); M85.80 Other specified disorders of bone density and structure, unspecified site
CPT/HCPCS: 77080

== ENCOUNTER → 2019-03-24 10:33 | Outpatient (CLI) | payer MEDICARE, OTHER, SELFPAY | PROVIDERS: Visit Provider Obstetrics & Gynecology | DX: Z12.4 Encounter for screening for malignant neoplasm of cervix (principal) ==

== ENCOUNTER → 2019-04-07 16:10 | Outpatient (CLI) | payer MEDICARE, OTHER, SELFPAY ==
--- NOTE | 2019-04-07 16:12 | US_ITS ---
STUDY: ULTRASOUND OF THE FEMALE PELVIS - COMPLETE REASON FOR EXAM: Female, 74 years old. Pelvic pain. Postmenopausal female. History of left oophorectomy. TECHNIQUE: Transabdominal and Transvaginal TECHNICAL QUALITY: Adequate. COMPARISON: CT of the pelvis, February 12, 2018. Pelvic ultrasound, February 12, 2018. FINDINGS: The uterus is anteverted and is in a midline position. The uterus measures 5.7 x 3.2 x 3.2 cm. There is a Nabothian cyst of the cervix. The endometrium measures 3 mm in thickness, and is hyperechoic. There is no demonstrated endometrial mass. There is no demonstrated myometrial mass. I.U.D. - The patient does not have an I.U.D. The right ovary is visualized. The right ovary measures 2.1 x 1.3 x 1.2 cm. There is no right ovarian cyst or ovarian mass. There is no visualized right adnexal mass or complex lesion. There is normal arterial and normal venous vascularity. The left ovary is not visualized. There is no visualized left adnexal mass or complex lesion. There is normal arterial and normal venous vascularity. There is no fluid in the cul-de-sac. The pre void volume of the bladder was 123 ml. The urinary bladder appears grossly normal. Polycystic ovary disease: No. US/Pelvic (Non ) IMPRESSION: 1. Normal appearing uterus and endometrium. 2. Normal right ovary. There is no visualization of the left para ovarian cyst described on the prior ultrasound. Electronically Signed: New Gunderson DO at 21:28 EDT Tel [phone], Service support ,
--- NOTE | 2019-04-07 16:35 | US_ITS ---
STUDY: ULTRASOUND OF THE FEMALE PELVIS - COMPLETE REASON FOR EXAM: Female, 74 years old. Pelvic pain. Postmenopausal female. History of left oophorectomy. TECHNIQUE: Transabdominal and Transvaginal TECHNICAL QUALITY: Adequate. COMPARISON: CT of the pelvis, February 12, 2018. Pelvic ultrasound, February 12, 2018. FINDINGS: The uterus is anteverted and is in a midline position. The uterus measures 5.7 x 3.2 x 3.2 cm. There is a Nabothian cyst of the cervix. The endometrium measures 3 mm in thickness, and is hyperechoic. There is no demonstrated endometrial mass. There is no demonstrated myometrial mass. I.U.D. - The patient does not have an I.U.D. The right ovary is visualized. The right ovary measures 2.1 x 1.3 x 1.2 cm. There is no right ovarian cyst or ovarian mass. There is no visualized right adnexal mass or complex lesion. There is normal arterial and normal venous vascularity. The left ovary is not visualized. There is no visualized left adnexal mass or complex lesion. There is normal arterial and normal venous vascularity. There is no fluid in the cul-de-sac. The pre void volume of the bladder was 123 ml. The urinary bladder appears grossly normal. Polycystic ovary disease: No. US/Transvaginal Non- IMPRESSION: 1. Normal appearing uterus and endometrium. 2. Normal right ovary. There is no visualization of the left para ovarian cyst described on the prior ultrasound. Electronically Signed: New Gunderson DO at 21:28 EDT Tel [phone], Service support ,
== END ==
PROVIDERS: Family Provider Internal Medicine; PCP Internal Medicine; Referring Provider Obstetrics & Gynecology; Visit Provider Obstetrics & Gynecology
DX: R10.2 Pelvic and perineal pain (principal); R10.32 Left lower quadrant pain; N83.292 Other ovarian cyst, left side
CPT/HCPCS: 76830; 76856

== ENCOUNTER → 2019-06-12 05:53 | Outpatient (CLI) | payer MEDICARE, OTHER, SELFPAY ==
[2019-06-12 07:58] LABS: Anion Gap 6 (5-15); BUN 17 mg/dL (7-18); BUN/Creat Ratio 23.7 RATIO (10-20); Calcium,Total 9.5 mg/dL (8.5-10.1); Chloride 105 mmol/L (98-107); Creatinine, Serum 0.72 mg/dL (0.55-1.02); EST Glomerular Filtration Rate 85 mL/min (>60); Est Glom Filt Rate - Afr Amer 103 mL/min (>60); Glucose 103 mg/dL (74-106); Potassium 3.9 mmol/L (3.5-5.1); Sodium Level 140 mmol/L (136-145)
== END ==
PROVIDERS: Family Provider Internal Medicine; PCP Internal Medicine; Referring Provider Internal Medicine; Visit Provider Internal Medicine
DX: R60.0 Localized edema (principal)
CPT/HCPCS: 36415; 80048

== ENCOUNTER → 2019-06-19 13:20 | Outpatient (CLI) | payer MEDICARE, OTHER, SELFPAY | PROVIDERS: Family Provider Internal Medicine; PCP Internal Medicine; Referring Provider Internal Medicine; Visit Provider Internal Medicine | DX: I73.9 Peripheral vascular disease, unspecified (principal) | CPT/HCPCS: 93924 ==

== ENCOUNTER → 2019-09-15 05:55 | Outpatient (CLI) | payer MEDICARE, SELFPAY ==
[2019-09-15 08:12] LABS: Cholesterol 161 mg/dL (200); High Density Lipoprotein 51 mg/dL; Triglycerides 133 mg/dL; Very Low Density Lipoprotein 27 mg/dL (5-40)
== END ==
PROVIDERS: PCP Internal Medicine; Referring Provider Internal Medicine; Visit Provider Internal Medicine
DX: E78.5 Hyperlipidemia, unspecified (principal)
CPT/HCPCS: 36415; 80061

== ENCOUNTER → 2019-09-22 07:51 | Outpatient (CLI) | payer MEDICARE, SELFPAY ==
--- NOTE | 2019-09-22 07:58 | RAD_ITS ---
STUDY: X-RAY CHEST REASON FOR EXAM: Female, 74 years old. ATYPICAL CHEST PAIN TECHNIQUE: PA and lateral views of the chest. COMPARISON: None. FINDINGS: The lungs are clear and expanded. There is no demonstrated pleural abnormality. Normal size heart. Normal mediastinum and lani. Normal visualized pulmonary arteries. Normal visualized aortic arch and descending thoracic aorta. Normal visualized thoracic spine. Normal visualized ribs, clavicles, and shoulders. There is no demonstrated abnormality of the visualized soft tissue structures of the upper abdomen. RAD/Chest PA and Lateral IMPRESSION: Normal x-ray examination of the chest. Electronically Signed: Jamison Cardoza MD at 8:48 EST Tel , Service support ,
== END ==
PROVIDERS: PCP Internal Medicine; Referring Provider Internal Medicine; Visit Provider Internal Medicine
DX: R07.89 Other chest pain (principal)
CPT/HCPCS: 71046

== ENCOUNTER → 2019-12-02 07:00 | Outpatient (CLI) | payer MEDICARE, SELFPAY ==
--- NOTE | 2019-12-02 07:02 | BI_ITS ---
MAMMOGRAPHY - BILATERAL SCREENING REASON FOR EXAM: Female, 74 years old. Routine annual screening examination. PERTINENT HISTORY: Non-contributory. Remote left excisional breast biopsy. TECHNIQUE: Digital bilateral breast mert (3D mammographic acquisition) in the CC and MLO projections. 2-D mediolateral oblique (MLO) and craniocaudad (CC) views of both breasts were obtained. CAD: Full Field Digital Mammography with Computer Added Detection was performed. COMPARISON: Comparison is made with prior examination dated November 25, 2018 and October 28, 2017. FINDINGS: Breast Composition: The breasts are heterogeneously dense, which may obscure small masses. There are no dominant masses or suspicious calcifications. No other significant abnormalities are identified. There has been no significant change since the prior study. BI/SCREEN MAMM (CAD) W/MERT BILAT IMPRESSION: Stable bilateral screening mammogram. Yearly follow-up mammogram recommended. (A) ASSESSMENT CATEGORY: BIRADS Category 1: Negative. A letter regarding these results will be sent to the patient by the facility within 30 days. Approximately 10% of breast cancers are not detected by mammography. A normal mammogram should not delay biopsy of a clinically suspicious abnormality. [id number] Electronically Signed: Kvng Gilman, at 10:50 EDT , Service support ,
== END ==
PROVIDERS: PCP Internal Medicine; Referring Provider Internal Medicine; Visit Provider Internal Medicine
DX: Z12.31 Encounter for screening mammogram for malignant neoplasm of breast (principal); R07.89 Other chest pain
CPT/HCPCS: 77063; 77067

== ENCOUNTER → 2019-12-23 05:58 | Outpatient (CLI) | payer MEDICARE, SELFPAY ==
[2019-12-23 07:26] LABS: Absolute Lymphocyte Count 1.22 X10^3/uL (0.83-4.51); Absolute Neutrophil Count 2.8 X10^3/uL (2.0-7.7); Basophil# 0.04 X10^3/uL; Basophil% 0.8 % (0-1); Eosinophil# 0.21 X10^3/uL; Eosinophils% 4.4 % (0-5); Hematocrit 41.2 % (37-47); Hemoglobin 13.4 g/dL (12.0-15.0); Lymphocyte # 1.22 X10^3/ul (4.0); Lymphocyte % 25.4 % (19-41); Mean Corp Hgb Conc 32.5 g/dL (32-36); Mean Corpuscular Hgb 29.7 pg (27.0-32.0); Mean Corpuscular Volume 91.4 fL (81-99); Mean Platelet Vol. 9.9 fl (6.2-12.0); Monocyte# 0.54 X10^3/uL; Monocyte% 11.2 % (0-10); NRBC Flagged by Analyzer 0 % (0-5); Neutrophil # 2.78 X10^3/uL (2.7-7.7); Neutrophil % 57.8 % (47-70); Platelet Count 283 K/mm3 (150-450); RBC Distribution Width CV 12.3 % (11.6-14.6); RBC Distribution Width SD 41.1 fl (35.1-43.9); Red Blood Count 4.51 M/mm3 (4.2-5.4); White Blood Count 4.8 K/mm3 (4.4-11.0)
[2019-12-23 07:46] LABS: Microalbumin,Random Urine 7.2 mg/L (NO RANGE EST.); Microalbumin:Creatinine Ratio 6.4 mg/g CRE (<30 mg/g CRE)
[2019-12-23 08:05] LABS: ALB/GLOB Ratio 1.1 RATIO (0.9-2.4); AST(SGOT) 24 U/L (15-37); Alanine Aminotransfer ALT/SGPT 27 U/L (13-56); Albumin, Serum 3.9 g/dL (3.2-5.0); Alkaline Phosphatase 60 U/L (45-117); Anion Gap 7 (5-15); BUN 17 mg/dL (7-18); BUN/Creat Ratio 23.5 RATIO (10-20); Calcium,Total 9.4 mg/dL (8.5-10.1); Chloride 101 mmol/L (98-107); Cholesterol 193 mg/dL (200); Creatinine, Serum 0.72 mg/dL (0.55-1.02); EST Glomerular Filtration Rate 84 mL/min (>60); Est Glom Filt Rate - Afr Amer 102 mL/min (>60); Globulin 3.5 g/dL (2.2-4.2); Glucose 96 mg/dL (74-106); High Density Lipoprotein 51 mg/dL; Potassium 3.5 mmol/L (3.5-5.1); Protein, Total 7.4 g/dL (6.4-8.2); Sodium Level 140 mmol/L (136-145); Thyroid Stim Hormone (TSH) 1.33 uIU/mL (0.358-3.74); Triglycerides 137 mg/dL; Very Low Density Lipoprotein 27 mg/dL (5-40)
[2019-12-23 08:21] LABS: Hemoglobin A1c 5.7 % (3.8-5.6)
[2019-12-23 10:34] LABS: Vitamin D,25 Hydroxy 69.8 ng/mL
== END ==
PROVIDERS: PCP Internal Medicine; Referring Provider Internal Medicine; Visit Provider Internal Medicine
DX: R73.01 Impaired fasting glucose (principal); E78.49 Other hyperlipidemia; E03.9 Hypothyroidism, unspecified; E55.9 Vitamin D deficiency, unspecified
CPT/HCPCS: 36415; 80053; 80061; 82043; 82306; 82570; 83036; 84443; 85025

== ENCOUNTER → 2020-04-16 07:03 | Outpatient (CLI) | payer MEDICARE, SELFPAY ==
[2020-04-16 07:50] LABS: Absolute Lymphocyte Count 1.09 X10^3/uL (0.83-4.51); Absolute Neutrophil Count 3.8 X10^3/uL (2.0-7.7); Basophil# 0.04 X10^3/uL; Basophil% 0.7 % (0-1); Eosinophil# 0.24 X10^3/uL; Eosinophils% 4.2 % (0-5); Hemoglobin 13.4 g/dL (12.0-15.0); Lymphocyte # 1.09 X10^3/ul (4.0); Lymphocyte % 18.9 % (19-41); Mean Corp Hgb Conc 32.7 g/dL (32-36); Mean Corpuscular Hgb 29.8 pg (27.0-32.0); Mean Corpuscular Volume 91.1 fL (81-99); Mean Platelet Vol. 9.7 fl (6.2-12.0); Monocyte# 0.57 X10^3/uL; Monocyte% 9.9 % (0-10); NRBC Flagged by Analyzer 0 % (0-5); Neutrophil # 3.81 X10^3/uL (2.7-7.7); Neutrophil % 66.1 % (47-70); Platelet Count 264 K/mm3 (150-450); RBC Distribution Width CV 12.4 % (11.6-14.6); RBC Distribution Width SD 41.1 fl (35.1-43.9); White Blood Count 5.8 K/mm3 (4.4-11.0)
[2020-04-16 08:18] LABS: Hemoglobin A1c 5.7 % (3.8-5.6)
[2020-04-16 08:25] LABS: ALB/GLOB Ratio 1.1 RATIO (0.9-2.4); AST(SGOT) 25 U/L (15-37); Alanine Aminotransfer ALT/SGPT 27 U/L (13-56); Alkaline Phosphatase 66 U/L (45-117); Anion Gap 5 (5-15); BUN 22 mg/dL (7-18); BUN/Creat Ratio 27.3 RATIO (10-20); Calcium,Total 9.2 mg/dL (8.5-10.1); Chloride 105 mmol/L (98-107); Cholesterol 171 mg/dL (200); EST Glomerular Filtration Rate 74 mL/min (>60); Est Glom Filt Rate - Afr Amer 90 mL/min (>60); Globulin 3.5 g/dL (2.2-4.2); Glucose 91 mg/dL (74-106); High Density Lipoprotein 56 mg/dL; Potassium 3.8 mmol/L (3.5-5.1); Protein, Total 7.5 g/dL (6.4-8.2); Sodium Level 138 mmol/L (136-145); Thyroid Stim Hormone (TSH) 1.16 uIU/mL (0.358-3.74); Triglycerides 79 mg/dL; Very Low Density Lipoprotein 16 mg/dL (5-40)
== END ==
PROVIDERS: PCP Internal Medicine; Referring Provider Internal Medicine; Visit Provider Internal Medicine
DX: E03.9 Hypothyroidism, unspecified (principal); E78.5 Hyperlipidemia, unspecified; I10 Essential (primary) hypertension; R73.01 Impaired fasting glucose
CPT/HCPCS: 36415; 80053; 80061; 83036; 84443; 85025

== ENCOUNTER → 2020-05-03 10:41 | Outpatient (CLI) | payer MEDICARE, SELFPAY ==
--- NOTE | 2020-05-03 10:43 | ECHOD_ITS ---
Reason For Study: Non rheumatic mv disorder Procedure This was a 2D Doppler, Color Flow transthoracic echocardiogram. The exam was of adequate technical quality. Exam performed in department. Left Ventricle Normal LV size. Left ventricular systolic function is normal. The estimated ejection fraction is 65 %. Diastolic function is indeterminate. No regional wall motion abnormalities noted. Right Ventricle Normal RV size. Normal systolic function. Atria The left atrium is mildly enlarged. Normal right atrium. No doppler evidence for ASD. Mitral Valve There is no mitral annular calcification. Mild diffuse mitral valve thickening. Mild-Moderate (1-2+) mitral valve insufficiency. Tricuspid Valve Normal tricuspid valve. Trivial tricuspid valve insufficiency. Right ventricular systolic pressure estimated to be 27 mmHg. Aortic Valve Trisinus/trileaflet aortic valve. Mild focal aortic valve calcification. Trivial aortic valve insufficiency. Pulmonic Valve The pulmonic valve is not well visualized. Trivial pulmonic valve insufficiency. Great Vessels Normal sized aortic root. Pericardium/Pleural No pericardial effusion. MMode/2D Measurements & Calculations LVIDd: 4.4 cm IVSd: 1.0 cm Ao root diam: 3.0 cm LVIDs: 2.9 cm LVPWd: 1.2 cm LA dimension: 3.6 cm RVDd: 2.6 cm FS: 34.1 % LAV(MOD-bp): 46.3 ml LA A4 area: 16.9 cm2 RA A4 area: 10.1 cm2 LAV(MOD-bp) Indexed: 29.5 ml/m2 LAV(MOD-sp2): 47.1 ml LAV(MOD-sp4): 44.7 ml Time Measurements MV dec time: 0.25 sec Doppler Measurements & Calculations MV E max dorian: 63.4 cm/sec Lat Peak E' Dorian: 5.6 cm/sec Med Peak E' Dorian: 3.7 cm/sec MV A max dorian: 95.9 cm/sec E/E' lat: 11.3 E/E' med: 17.2 MV E/A: 0.66 MV V2 max: 117.5 cm/sec MV P1/2t max dorian: 95.3 cm/sec Ao V2 max: 159.3 cm/sec MV max P.5 mmHg MV P1/2t: 79.1 msec Ao max P.1 mmHg MV V2 mean: 57.7 cm/sec MV dec slope: 353.0 cm/sec2 MV mean P.6 mmHg MVA(P1/2t): 2.8 cm2 MV V2 VTI: 31.3 cm AI max dorian: 452.1 cm/sec LV V1 max: 124.8 cm/sec PA V2 max: 105.9 cm/sec AI max P.8 mmHg LV V1 max P.2 mmHg AI dec slope: 207.1 cm/sec2 AI P1/2t: 639.5 msec TR max dorian: 243.1 cm/sec TR max P.6 mmHg Interpretation Summary Left ventricular systolic function is normal. The estimated ejection fraction is 65 %. The left atrium is mildly enlarged. Mild diffuse mitral valve thickening. Mild-Moderate (1-2+) mitral valve insufficiency. Trivial tricuspid valve insufficiency. Mild focal aortic valve calcification. Trivial aortic valve insufficiency. Trivial pulmonic valve insufficiency. Right ventricular systolic pressure estimated to be 27 mmHg. Diastolic function is indeterminate. Ordering Physician: Lexi Maria Referring Physician: Lexi Maria Performed By: Alexis Bell RCS
== END ==
PROVIDERS: PCP Internal Medicine; Referring Provider Internal Medicine; Visit Provider Internal Medicine
DX: I34.0 Nonrheumatic mitral (valve) insufficiency (principal)
CPT/HCPCS: 93306

== ENCOUNTER → 2020-11-05 06:56 | Outpatient (CLI) | payer MEDICARE, SELFPAY ==
[2020-11-05 07:20] LABS: Absolute Lymphocyte Count 1.06 X10^3/uL (0.83-4.51); Absolute Neutrophil Count 4.3 X10^3/uL (2.0-7.7); Basophil# 0.05 X10^3/uL; Basophil% 0.8 % (0-1); Eosinophils% 3.2 % (0-5); Hematocrit 40.2 % (37-47); Lymphocyte # 1.06 X10^3/ul (0.83-4.51); Lymphocyte % 16.9 % (19-41); Mean Corp Hgb Conc 32.3 g/dL (32-36); Mean Corpuscular Hgb 29.1 pg (27.0-32.0); Mean Corpuscular Volume 89.9 fL (81-99); Mean Platelet Vol. 9.2 fl (6.2-12.0); Monocyte% 9.6 % (0-10); NRBC Flagged by Analyzer 0 % (0-5); Neutrophil # 4.34 X10^3/uL (2.7-7.7); Neutrophil % 69.3 % (47-70); Platelet Count 269 K/mm3 (150-450); RBC Distribution Width CV 12.5 % (11.6-14.6); RBC Distribution Width SD 41.1 fl (35.1-43.9); Red Blood Count 4.47 M/mm3 (4.2-5.4); White Blood Count 6.3 K/mm3 (4.4-11.0)
[2020-11-05 07:42] LABS: Hemoglobin A1c 5.7 % (3.8-5.6)
[2020-11-05 07:46] LABS: Microalbumin,Random Urine 9.9 mg/L (NO RANGE EST.); Microalbumin:Creatinine Ratio 7.2 mg/g CRE (<30 mg/g CRE)
[2020-11-05 08:11] LABS: ALB/GLOB Ratio 1.1 RATIO (0.9-2.4); AST(SGOT) 26 U/L (15-37); Alanine Aminotransfer ALT/SGPT 31 U/L (13-56); Albumin, Serum 3.9 g/dL (3.2-5.0); Alkaline Phosphatase 59 U/L (45-117); Anion Gap 5 (5-15); BUN 25 mg/dL (7-18); BUN/Creat Ratio 31.7 RATIO (10-20); Calcium,Total 9.1 mg/dL (8.5-10.1); Chloride 102 mmol/L (98-107); Cholesterol 195 mg/dL (200); Creatinine, Serum 0.79 mg/dL (0.55-1.02); EST Glomerular Filtration Rate 76 mL/min (>60); Est Glom Filt Rate - Afr Amer 92 mL/min (>60); Globulin 3.6 g/dL (2.2-4.2); Glucose 108 mg/dL (74-106); High Density Lipoprotein 58 mg/dL; Potassium 3.6 mmol/L (3.5-5.1); Protein, Total 7.5 g/dL (6.4-8.2); Sodium Level 137 mmol/L (136-145); Triglycerides 118 mg/dL
[2020-11-05 08:12] LABS: Thyroid Stim Hormone (TSH) 1.38 uIU/mL (0.358-3.74); Very Low Density Lipoprotein 24 mg/dL (5-40)
== END ==
PROVIDERS: PCP Internal Medicine; Referring Provider Internal Medicine; Visit Provider Internal Medicine
DX: E78.5 Hyperlipidemia, unspecified (principal); R73.01 Impaired fasting glucose; E03.9 Hypothyroidism, unspecified
CPT/HCPCS: 36415; 80053; 80061; 82043; 82570; 83036; 84443; 85025

== ENCOUNTER → 2020-12-13 07:02 | Outpatient (CLI) | payer MEDICARE, SELFPAY ==
--- NOTE | 2020-12-13 07:04 | BI_ITS ---
MAMMOGRAPHY - BILATERAL SCREENING REASON FOR EXAM: Female, 75 years old. Routine annual screening examination. PERTINENT HISTORY: Non-contributory. Remote left excisional breast biopsy. TECHNIQUE: Digital bilateral breast mert (3D mammographic acquisition) in the CC and MLO projections. 2-D mediolateral oblique (MLO) and craniocaudad (CC) views of both breasts were obtained. CAD: Full Field Digital Mammography with Computer Added Detection was performed. COMPARISON: Comparison is made with prior examination dated 12/02/2019 and 11/25/2018. FINDINGS: Breast Composition: The breasts are heterogeneously dense, which may obscure small masses. There are no dominant masses or suspicious calcifications. No other significant abnormalities are identified. There has been no significant change since the prior study. BI/SCRN MAMM (CAD)W/MERT BILAT IMPRESSION: Stable bilateral screening mammogram. Yearly follow-up mammogram recommended. (A) ASSESSMENT CATEGORY: BIRADS Category 1: Negative. A letter regarding these results will be sent to the patient by the facility within 30 days. Approximately 10% of breast cancers are not detected by mammography. A normal mammogram should not delay biopsy of a clinically suspicious abnormality. [id number] Electronically Signed: Kvng Gilman MD at 8:23 EDT , Service support ,
== END ==
PROVIDERS: PCP Internal Medicine; Referring Provider Internal Medicine; Visit Provider Internal Medicine
DX: Z12.31 Encounter for screening mammogram for malignant neoplasm of breast (principal)
CPT/HCPCS: 77063; 77067

== ENCOUNTER → 2021-01-25 | Outpatient (CLI) | payer MEDICARE, SELFPAY ==
[2021-01-25 13:46] LABS: Absolute Lymphocyte Count 1.03 X10^3/uL (0.83-4.51); Absolute Neutrophil Count 4.5 X10^3/uL (2.0-7.7); Basophil# 0.04 X10^3/uL; Basophil% 0.6 % (0-1); Eosinophil# 0.16 X10^3/uL; Eosinophils% 2.6 % (0-5); Hematocrit 39.3 % (37-47); Hemoglobin 12.9 g/dL (12.0-15.0); Lymphocyte # 1.03 X10^3/ul (0.83-4.51); Lymphocyte % 16.7 % (19-41); Mean Corp Hgb Conc 32.8 g/dL (32-36); Mean Corpuscular Hgb 29.5 pg (27.0-32.0); Mean Corpuscular Volume 89.9 fL (81-99); Mean Platelet Vol. 10.1 fl (6.2-12.0); Monocyte# 0.49 X10^3/uL; Monocyte% 7.9 % (0-10); NRBC Flagged by Analyzer 0 % (0-5); Neutrophil # 4.45 X10^3/uL (2.7-7.7); Platelet Count 284 K/mm3 (150-450); RBC Distribution Width CV 12.5 % (11.6-14.6); RBC Distribution Width SD 41.4 fl (35.1-43.9); Red Blood Count 4.37 M/mm3 (4.2-5.4); White Blood Count 6.2 K/mm3 (4.4-11.0)
[2021-01-25 13:51] LABS: Erythrocyte Sedimentation Rate 13 mm/hr (0-30)
[2021-01-25 14:03] LABS: ALB/GLOB Ratio 1.4 RATIO (0.9-2.4); AST(SGOT) 31 U/L (15-37); Alanine Aminotransfer ALT/SGPT 31 U/L (13-56); Alkaline Phosphatase 64 U/L (45-117); Anion Gap 9 (5-15); BUN 15 mg/dL (7-18); BUN/Creat Ratio 16.9 RATIO (10-20); Calcium,Total 8.9 mg/dL (8.5-10.1); Chloride 104 mmol/L (98-107); Creatinine, Serum 0.88 mg/dL (0.55-1.02); EST Glomerular Filtration Rate 66 mL/min (>60); Est Glom Filt Rate - Afr Amer 80 mL/min (>60); Globulin 2.9 g/dL (2.2-4.2); Glucose 131 mg/dL (74-106); Potassium 3.8 mmol/L (3.5-5.1); Protein, Total 6.9 g/dL (6.4-8.2); Sodium Level 141 mmol/L (136-145); Troponin-I HS 6.7 pg/mL (3.0-53.7)
[2021-01-25 14:04] LABS: D-Dimer Quantitative (DVT/PE) 0.33 FEU/ug/m (0.27-0.49)
== END | disposition home or self-care (01) ==
LOC: LABSPEC 13:36
PROVIDERS: PCP Internal Medicine; Visit Provider Internal Medicine
DX: R07.81 Pleurodynia (principal)
CPT/HCPCS: 80053; 84484; 85025; 85379; 85652

== ENCOUNTER → 2021-03-10 05:56 | Outpatient (CLI) | payer MEDICARE, SELFPAY ==
[2021-03-10 07:36] LABS: Absolute Lymphocyte Count 1.37 X10^3/uL (0.83-4.51); Absolute Neutrophil Count 3.5 X10^3/uL (2.0-7.7); Basophil# 0.04 X10^3/uL; Basophil% 0.7 % (0-1); Eosinophil# 0.25 X10^3/uL; Eosinophils% 4.3 % (0-5); Hematocrit 39.7 % (37-47); Hemoglobin 13.2 g/dL (12.0-15.0); Lymphocyte # 1.37 X10^3/ul (0.83-4.51); Lymphocyte % 23.7 % (19-41); Mean Corp Hgb Conc 33.2 g/dL (32-36); Mean Corpuscular Hgb 30.1 pg (27.0-32.0); Mean Corpuscular Volume 90.4 fL (81-99); Mean Platelet Vol. 9.6 fl (6.2-12.0); Monocyte# 0.61 X10^3/uL; Monocyte% 10.5 % (0-10); NRBC Flagged by Analyzer 0 % (0-5); Neutrophil % 60.5 % (47-70); Platelet Count 274 K/mm3 (150-450); RBC Distribution Width CV 12.1 % (11.6-14.6); RBC Distribution Width SD 40.1 fl (35.1-43.9); Red Blood Count 4.39 M/mm3 (4.2-5.4); White Blood Count 5.8 K/mm3 (4.4-11.0)
[2021-03-10 07:57] LABS: Hemoglobin A1c 5.8 % (3.8-5.6)
[2021-03-10 08:01] LABS: ALB/GLOB Ratio 1.1 RATIO (0.9-2.4); AST(SGOT) 22 U/L (15-37); Alanine Aminotransfer ALT/SGPT 32 U/L (13-56); Albumin, Serum 3.9 g/dL (3.2-5.0); Alkaline Phosphatase 59 U/L (45-117); BUN 18 mg/dL (7-18); BUN/Creat Ratio 27.5 RATIO (10-20); Chloride 105 mmol/L (98-107); Cholesterol 186 mg/dL (200); Creatinine, Serum 0.65 mg/dL (0.55-1.02); EST Glomerular Filtration Rate 94 mL/min (>60); Est Glom Filt Rate - Afr Amer 114 mL/min (>60); Globulin 3.5 g/dL (2.2-4.2); Glucose 100 mg/dL (74-106); Potassium 3.7 mmol/L (3.5-5.1); Protein, Total 7.4 g/dL (6.4-8.2); Sodium Level 139 mmol/L (136-145); Triglycerides 156 mg/dL
[2021-03-10 08:02] LABS: Anion Gap 5 (5-15); High Density Lipoprotein 49 mg/dL; Very Low Density Lipoprotein 31 mg/dL (5-40)
== END ==
PROVIDERS: PCP Internal Medicine; Referring Provider Internal Medicine; Visit Provider Internal Medicine
DX: I10 Essential (primary) hypertension (principal); E78.5 Hyperlipidemia, unspecified; R73.01 Impaired fasting glucose
CPT/HCPCS: 36415; 80053; 80061; 83036; 85025

== ENCOUNTER → 2021-04-18 13:58 | Outpatient (CLI) | payer MEDICARE, SELFPAY ==
--- NOTE | 2021-04-18 14:00 | RAD_ITS ---
STUDY: X-RAY - CERVICAL SPINE REASON FOR EXAM: Female, 76 years old. NECK PAIN TECHNIQUE: 5 radiographic view(s) of the cervical spine were obtained. COMPARISON: None FINDINGS: Normal anterior atlantoaxial articulation. Normal odontoid process. Normal cervical lordosis. There is multi-level endplate spondylosis. There is multi-level degenerative disc disease with multilevel disc space narrowing. There is multi-level mild osseous foraminal stenosis. The soft tissue structures are unremarkable. There is no demonstrated fracture of the cervical spine. RAD/Cerv Spine 4 or 5 Views IMPRESSION: Degenerative change throughout the cervical spine detailed above. Electronically Signed: Mark Del Real MD at 3:45 EDT Tel , Service support ,
== END ==
PROVIDERS: PCP Internal Medicine; Referring Provider Internal Medicine; Visit Provider Internal Medicine
DX: M54.2 Cervicalgia (principal)
CPT/HCPCS: 72050

== ENCOUNTER 2021-06-21 17:30 | Outpatient (RCR) | payer MEDICARE, SELFPAY ==
--- NOTE | 2021-06-14 18:13 | HP.PTEVAL ---
Patient's Visit Information JONATHAN PURCELL is a 76 year old F referred to Physical Therapy by Dr. Lxei Maria DO with a diagnosis of Neck pain, DDD, DJD. Date of Evaluation: 06/14/21 Physical Therapist: Car Black DPT - Visit Plan Frequency: 1x/Week Duration: 3 Weeks Plan: Pt to do HEP, if feels that pain and symptoms have improved she will call and cancel appointment. Pt to begin strengthening of deep neck flexor muscles, as well as stretch upper trap/levator scap muscles. Consider trigger point therapy or muscle energy techniques to continue to improve ROM and decrease pain. - Subjective Pt presents to Physical therapy with neck pain that started months ago, she found relief with ibuprofen and tylenol. Pt states turning to the left causes significant pain, and experiences slight pain when turning to the right. Pt reports her symptoms have continued to improve from when symptoms began a few months ago. Patient denies numbness and tingling. Pt states pain is provoked from sitting and holding head in one position and often feels better with movement. Pt states her goals for therapy are to get a HEP to manage symptoms and avoid further provocation. Pt states she watches her grandchildren a few times a week, and when picking kids up neck pain can occur. Pt reports her neck pain has caused her sleep at night to worsen, and she uses medication and heating pad to get relief. - Pain Neck Pain Intensity (Out of 10): 4 Pain Intensity Range: 3, 9 - Objective ROM: pain in all motions, mod loss of left rotation, and mod loss of right side bending, all other motions look WFL; shoulder ROM WFL. STRENGTH: resisted testing normal, no pain provocation with R& L sidebending/rotation/flexion/extension. NEURO: reflexes R & L : brachioradialis 2+, triceps 2+, and biceps 2+. PALPATION: Pain with palpation of upper trap mm/levator scap mm. Spring testing: cervical spine WNL. Trigger point therapy on L levator scap muscle allowed pt to have some pain relief. - Special Tests C/S Radiculapathy - Left Spurlings: Negative C/S Radiculapathy - Right Spurlings: Negative - Balance/Special Test Scores Oswestry Neck Score: 13 - Goals Goal 1:: Pt will be independent with HEP. Goal Time Frame: 2-4 Weeks Goal 2:: LTG: Pt will have equal ROM bilaterally with R sidebending and L rotation. Goal Time Frame: 2-4 Weeks Goal 3:: STG: Pt will report 0-2/10 pain in neck with every day activities Goal Time Frame: 2 Weeks Goal 4:: LTG: Pt will be able to lift great grandchildren with 0/10 pain. Goal Time Frame: 2-4 Weeks Goal 5:: LTG: pt will have < 20% disability on Oswestry neck index Goal Time Frame: 2-4 Weeks - Rehabilitation Potential Physical Therapy Diagnosis: Limited neck ROM, neck pain Rehabilitation Potential: Good - Anticipated Interventions Patient/Client Instruction: Educate patient on: Condition, Plan of Care, Benefits of Fitness Program For the Purpose of:: To decrease pain, To increase ROM, To improve muscle performance and motor function, To improve ability to perform ADL's, To improve health of tissue, To decrease soft tissue restriction, To increase flexibility/ROM Therapeutic Exercise to Include: Strength training, Postural training, Flexibilty training, Passive ROM, Active ROM For the Purpose of:: To decrease pain, To increase ROM, To improve ability to perform ADL's, To increase tolerance to activity/condition/position, To improve ability of physical actions for home/community/work/leisure, To decrease soft tissue restriction, To increase flexibility/ROM Manual Therapy Techniques to Include: Trigger point massage, Mobilization, Passive ROM, Soft tissue mobilization For the Purpose of:: To decrease pain, To increase ROM, To improve ability of physical actions for home/community/work/leisure, To decrease soft tissue restriction, To increase flexibility/ROM Thermo therapy (hot pack): Yes Ultrasound (thermal/non thermal): Yes For the Purpose of:: To decrease pain Thank you for the opportunity to evaluate your patient. For Medicare and Medicare HMO plans, please review the plan of care and approve it. It will need to be FAXED BACK to us at [phone] for Medicare purposes. For Medicare only, by signing this I certify the plan of care. Please let me know if there are questions or concerns regarding this plan of care. Physician Signature: Date:
== END 2021-06-21 19:00 | disposition home or self-care (01) ==
LOC: PT 17:30
PROVIDERS: PCP Internal Medicine; Referring Provider Internal Medicine; Visit Provider Internal Medicine
DX: M50.30 Other cervical disc degeneration, unspecified cervical region (principal); M47.812 Spondylosis without myelopathy or radiculopathy, cervical region
CPT/HCPCS: 97110; 97140; 97161

== ENCOUNTER 2021-08-08 06:02 | Outpatient (CLI) | payer MEDICARE, SELFPAY ==
--- NOTE | 2021-08-08 08:14 | STRESSREP ---
Stress Test Report Date: 08-08-2021 Procedure: Exercise tolerance test/imaging study Indications: Chest pain; mitral valve prolapse Consent: Per the patient Procedure: The patient exercised on a Franko protocol for 8 minutes completing Stage II and 2 minutes of Stage III achieving a peak heart rate of 141 bpm (96% predicted maximal heart rate) with a peak blood pressure 164/72 mmHg and a peak MET capacity of 10 METs. The baseline ECG demonstrated normal sinus rhythm. The peak exercise ECG demonstrated somatic/motion artifact with approximately 0.5 to 1.[address] segment depression in lead V3 through V6 with resolution towards baseline beginning less than 1 minute in recovery. There was a rare PVC during exercise. The functional capacity was considered good. There was no complaint of chest discomfort during exercise or recovery. The examination was discontinued secondary to dyspnea. Impression: 1. Technically adequate (percent predicted maximal heart rate greater than 85%) exercise tolerance test 2. Peak exercise ECG with somatic/motion artifact with approximately 0.5 to 1.[address] segment depression in lead V3 through V6 with resolution towards baseline beginning less than 1 minute in recovery 3. There was a rare PVC during exercise 4. Nuclear images pending Myocardial perfusion imaging study: Technique: The patient was injected with 11.8 mCi of technetium 99m Cardiolite and subsequently rest SPECT Cardiolite nuclear imaging was obtained in the horizontal long, vertical long, and short axis views. The patient exercised on a Franko protocol for 8 minutes completing Stage II and 2 minutes of Stage III achieving a peak heart rate of 141 bpm (96% predicted maximal heart rate) with a peak blood pressure 164/72 mmHg and a peak MET capacity of 10 METs. The patient was injected with 33.3 mCi of technetium 99m Cardiolite and subsequently stress SPECT Cardiolite nuclear imaging was obtained in the horizontal long, vertical long, and short axis views. A gated Cardiolite study at peak stress was obtained. Interpretation: Rest and stress SPECT Cardiolite nuclear imaging status post realignment and normalization demonstrates the appearance of relative uniform tracer uptake and myocardial perfusion appearing within normal limits. There is end systolic thickening and brightening. The gated Cardiolite study demonstrates myocardial thickening and inward wall motion. The reported LVEF is 80%. Impression: 1. Rest and stress SPECT Cardiolite nuclear imaging demonstrate relative uniform tracer uptake and myocardial perfusion appearing within normal limits. 2. The gated Cardiolite study reports an LVEF of 80%. This note was generated with [employer] software. It may contain incorrect words, spelling, and punctuation that were not noted in checking the note before signing.
== END 2021-08-08 23:59 | disposition short-term general hospital (02) ==
LOC: CVS 06:03
PROVIDERS: PCP Internal Medicine; Referring Provider Internal Medicine; Visit Provider Internal Medicine
DX: R07.89 Other chest pain (principal)
CPT/HCPCS: 78452; 93017; A9500; A4216

== ENCOUNTER 2021-10-18 06:15 | Outpatient (CLI) | payer MEDICARE, SELFPAY ==
[2021-10-18 07:30] LABS: Absolute Lymphocyte Count 1.28 X10^3/uL (0.83-4.51); Absolute Neutrophil Count 3.6 X10^3/uL (2.0-7.7); Basophil# 0.05 X10^3/uL; Basophil% 0.9 % (0-1); Eosinophil# 0.27 X10^3/uL; Eosinophils% 4.7 % (0-5); Hematocrit 38.8 % (37-47); Hemoglobin 13.2 g/dL (12.0-15.0); Lymphocyte # 1.28 X10^3/ul (0.83-4.51); Lymphocyte % 22.1 % (19-41); Mean Corpuscular Hgb 29.8 pg (27.0-32.0); Mean Corpuscular Volume 87.6 fL (81-99); Mean Platelet Vol. 9.9 fl (6.2-12.0); Monocyte# 0.63 X10^3/uL; Monocyte% 10.9 % (0-10); NRBC Flagged by Analyzer 0 % (0-5); Neutrophil # 3.55 X10^3/uL (2.7-7.7); Neutrophil % 61.1 % (47-70); Platelet Count 275 K/mm3 (150-450); RBC Distribution Width CV 12.8 % (11.6-14.6); RBC Distribution Width SD 41.1 fl (35.1-43.9); Red Blood Count 4.43 M/mm3 (4.2-5.4); White Blood Count 5.8 K/mm3 (4.4-11.0)
[2021-10-18 07:58] LABS: AST(SGOT) 21 U/L (15-37); Alanine Aminotransfer ALT/SGPT 23 U/L (13-56); Albumin, Serum 3.7 g/dL (3.2-5.0); Alkaline Phosphatase 62 U/L (45-117); Anion Gap 3 (5-15); BUN 16 mg/dL (7-18); BUN/Creat Ratio 19.9 RATIO (10-20); Calcium,Total 9.5 mg/dL (8.5-10.1); Chloride 105 mmol/L (98-107); Cholesterol 198 mg/dL (200); EST Glomerular Filtration Rate 74 mL/min (>60); Est Glom Filt Rate - Afr Amer 90 mL/min (>60); Globulin 3.6 g/dL (2.2-4.2); Glucose 111 mg/dL (74-106); High Density Lipoprotein 48 mg/dL; Potassium 3.7 mmol/L (3.5-5.1); Protein, Total 7.3 g/dL (6.4-8.2); Sodium Level 139 mmol/L (136-145); Triglycerides 182 mg/dL; Very Low Density Lipoprotein 36 mg/dL (5-40)
[2021-10-18 08:21] LABS: Hemoglobin A1c 5.6 % (3.8-5.6)
== END 2021-10-18 23:59 | disposition home or self-care (01) ==
LOC: LAB 06:16
PROVIDERS: PCP Internal Medicine; Referring Provider Internal Medicine; Visit Provider Internal Medicine
DX: R73.01 Impaired fasting glucose (principal); E78.5 Hyperlipidemia, unspecified
CPT/HCPCS: 36415; 80053; 80061; 83036; 85025

== ENCOUNTER 2021-11-07 08:30 | Outpatient (RCR) | payer SELFPAY | END 2021-11-07 19:00 | disposition home or self-care (01) | LOC: PT 08:30 | PROVIDERS: PCP Internal Medicine | DX: R69 Illness, unspecified (principal) ==

== ENCOUNTER → 2021-12-26 | Outpatient (CLI) | payer MEDICARE, SELFPAY ==
--- NOTE | 2021-12-26 07:12 | BI_ITS ---
MAMMOGRAPHY - BILATERAL SCREENING REASON FOR EXAM: Female, 76 years old. Routine annual screening examination. PERTINENT HISTORY: Non-contributory. Remote left excisional breast biopsy. TECHNIQUE: Digital bilateral breast mert (3D mammographic acquisition) in the CC and MLO projections. 2-D mediolateral oblique (MLO) and craniocaudad (CC) views of both breasts were obtained. CAD: Full Field Digital Mammography with Computer Added Detection was performed. COMPARISON: Comparison is made with prior study of 12/13/2020 and 12/02/2019. FINDINGS: Breast Composition: The breasts are heterogeneously dense, which may obscure small masses. There are no dominant masses or suspicious calcifications. No other significant abnormalities are identified. There has been no significant change since the prior study. BI/SCRN MAMM (CAD)W/MERT BILAT IMPRESSION: Stable bilateral screening mammogram. Yearly follow-up mammogram recommended. (A) ASSESSMENT CATEGORY: BIRADS Category 1: Negative. A letter regarding these results will be sent to the patient by the facility within 30 days. Approximately 10% of breast cancers are not detected by mammography. A normal mammogram should not delay biopsy of a clinically suspicious abnormality. [id number] Electronically Signed: Kvng Gilman MD at 8:20 EDT ,
== END | disposition home or self-care (01) ==
LOC: OPBI 07:10
PROVIDERS: PCP Internal Medicine; Referring Provider Internal Medicine; Visit Provider Internal Medicine
DX: Z12.31 Encounter for screening mammogram for malignant neoplasm of breast (principal)
CPT/HCPCS: 77063; 77067

== ENCOUNTER → 2022-01-24 | Outpatient (CLI) | payer MEDICARE, SELFPAY ==
--- NOTE | 2022-01-24 12:47 | RAD_ITS ---
STUDY: X-RAY - RIGHT KNEE REASON FOR EXAM: Female, 76 years old. PAIN -- STAT TECHNIQUE: 4 view(s) of the knee. COMPARISON: None. FINDINGS: Normal visualized distal femur. Normal visualized proximal tibia and fibula. Normal proximal tibiofibular articulation. Normal medial femorotibial compartment. Normal lateral femorotibial compartment. Normal patellofemoral articulation. The soft tissue structures are unremarkable. RAD/Knee 4 or More Views IMPRESSION: Normal x-ray examination of the knee. Electronically Signed: Kvng Gilman MD at 13:15 EDT ,
--- NOTE | 2022-01-24 12:47 | RAD_ITS ---
STUDY: X-RAY - PELVIS AND RIGHT HIP REASON FOR EXAM: Female, 76 years old. PAIN -- STAT TECHNIQUE: 3 views of the pelvis and hip. COMPARISON: None. FINDINGS: There is a non-specific bowel gas pattern. Normal visualized soft tissue structures. Disc space narrowing in the lower lumbar spine. Normal bilateral iliac wings, sacroiliac joints and visualized sacrum. Normal bilateral superior and inferior pubic rami. There is narrowing with sclerosis of the pubic symphysis. Normal bilateral ischial tuberosities. Normal visualized femoral head. Normal acetabulum. There is mild articular joint space narrowing of the hip. RAD/HIP, UNI W/ Pelvis 2-3 Views IMPRESSION: Degenerative changes of the symphysis pubis and both hip joints. Electronically Signed: Kvng Gilman MD at 13:24 EDT ,
== END | disposition home or self-care (01) ==
LOC: MTRAD 12:46
PROVIDERS: PCP Internal Medicine; Referring Provider Internal Medicine; Visit Provider Internal Medicine
DX: M25.561 Pain in right knee (principal); M25.551 Pain in right hip
CPT/HCPCS: 73502; 73564

== ENCOUNTER → 2022-02-16 | Outpatient (CLI) | payer MEDICARE, SELFPAY ==
[2022-02-16 07:30] LABS: Absolute Lymphocyte Count 1.23 X10^3/uL (0.83-4.51); Absolute Neutrophil Count 4.4 X10^3/uL (2.0-7.7); Basophil# 0.04 X10^3/uL; Basophil% 0.6 % (0-1); Eosinophil# 0.28 X10^3/uL; Eosinophils% 4.3 % (0-5); Hematocrit 39.2 % (37-47); Hemoglobin 12.9 g/dL (12.0-15.0); Lymphocyte # 1.23 X10^3/ul (0.83-4.51); Lymphocyte % 18.8 % (19-41); Mean Corp Hgb Conc 32.9 g/dL (32-36); Mean Corpuscular Hgb 29.4 pg (27.0-32.0); Mean Corpuscular Volume 89.3 fL (81-99); Mean Platelet Vol. 9.8 fl (6.2-12.0); Monocyte# 0.58 X10^3/uL; Monocyte% 8.9 % (0-10); NRBC Flagged by Analyzer 0 % (0-5); Neutrophil # 4.39 X10^3/uL (2.7-7.7); Neutrophil % 67.1 % (47-70); Platelet Count 274 K/mm3 (150-450); RBC Distribution Width CV 12.8 % (11.6-14.6); RBC Distribution Width SD 42.1 fl (35.1-43.9); Red Blood Count 4.39 M/mm3 (4.2-5.4); White Blood Count 6.5 K/mm3 (4.4-11.0)
[2022-02-16 07:50] LABS: Hemoglobin A1c 5.8 % (3.8-5.6)
[2022-02-16 08:04] LABS: Vitamin D,25 Hydroxy 93.9 ng/mL
[2022-02-16 08:15] LABS: ALB/GLOB Ratio 1.1 RATIO (0.9-2.4); AST(SGOT) 20 U/L (15-37); Alanine Aminotransfer ALT/SGPT 26 U/L (13-56); Albumin, Serum 3.7 g/dL (3.2-5.0); Alkaline Phosphatase 54 U/L (45-117); Anion Gap 4 (5-15); BUN 19 mg/dL (7-18); BUN/Creat Ratio 22.8 RATIO (10-20); Calcium,Total 9.3 mg/dL (8.5-10.1); Chloride 103 mmol/L (98-107); Cholesterol 173 mg/dL (200); Creatinine, Serum 0.83 mg/dL (0.55-1.02); EST Glomerular Filtration Rate 71 mL/min (>60); Est Glom Filt Rate - Afr Amer 86 mL/min (>60); Globulin 3.4 g/dL (2.2-4.2); Glucose 103 mg/dL (74-106); High Density Lipoprotein 47 mg/dL; Potassium 3.8 mmol/L (3.5-5.1); Protein, Total 7.1 g/dL (6.4-8.2); Sodium Level 139 mmol/L (136-145); Thyroid Stim Hormone (TSH) 2.32 uIU/mL (0.358-3.74); Triglycerides 200 mg/dL; Very Low Density Lipoprotein 40 mg/dL (5-40)
== END | disposition home or self-care (01) ==
PROVIDERS: PCP Internal Medicine; Referring Provider Internal Medicine; Visit Provider Internal Medicine
DX: E03.9 Hypothyroidism, unspecified (principal); E55.9 Vitamin D deficiency, unspecified; R73.01 Impaired fasting glucose; E78.5 Hyperlipidemia, unspecified
CPT/HCPCS: 36415; 80053; 80061; 82306; 83036; 84443; 85025

== ENCOUNTER → 2022-07-26 | Outpatient (CLI) | payer MEDICARE, SELFPAY ==
--- NOTE | 2022-07-26 08:23 | BD_ITS ---
STUDY: DUAL ENERGY X-RAY ABSORPTIOMETRY / DXA REASON FOR EXAM: Female, 77 years old. [id number] -- postmenopausal TECHNIQUE: Bone Mineral Density (BMD) measurements of lumbar spine and bilateral hips were obtained. COMPARISON: Comparison is made with prior study 02/24/2019. FINDINGS: Lumbar Spine (L1-L4): g/cm2 (1.034) / T-score (-0.1) / Z-score (2.3) Findings are suggestive of normal bone density with a low fracture risk. Left Femur Total: g/cm2 (0.782) / T-score (-1.3) / Z-score (0.5) Left Femoral Neck: g/cm2 (0.580) / T-score (-2.4) / Z-score (-0.3) Right Femur Total: g/cm2 (0.822) / T-score (-1.0) / Z-score (0.8) Right Femoral Neck: g/cm2 (0.607) / T-score (-2.2) / Z-score (-0.1) The T-Scores on the most recent prior examination were: Lumbar Spine (L1-L4): There has been improvement of bone density since the previous examination. Left Femur Total: which represents a worsening of 2.5%. Right Femur Total: which represents a worsening of 0.8%. BD/Dexa Bone Density Study IMPRESSION: The patient is considered osteopenic as outlined below according to World Bradford Organization (WHO) criteria with a high fracture risk. There has been worsening of bone density since the previous examination. Reference Information: The T-score is the number of standard deviations above or below the standard which is normal for young adults at their peak bone mineral density. The World Health Organization (WHO) interprets the T-scores as follows: Above -1 Normal bone density Between -1 and -2.5 Osteopenia Equal to / or below -2.5 Osteoporosis As a practical clinical guideline, osteopenia may be graded as follows: Mild -1 through -1.5 Moderate -1.6 through -2.0 Severe -2.1 through -2.4 The Z-score is the number of standard deviations above or below age-matched controls. A Z-score of less than -1.5 would be considered abnormal. References: 1. NIH Osteoporosis and Related Bone Diseases www osteo.org 2. International Society for Clinical Densitometry www iscd.org 3. National Osteoporosis Foundation www nof.org Electronically Signed: Kvng Gilman MD at 12:52 EST ,
== END | disposition home or self-care (01) ==
LOC: OPBD 08:21
PROVIDERS: PCP Internal Medicine; Visit Provider Internal Medicine
DX: Z78.0 Asymptomatic menopausal state (principal); M85.80 Other specified disorders of bone density and structure, unspecified site
CPT/HCPCS: 77080

== ENCOUNTER → 2022-09-06 | Outpatient (CLI) | payer MEDICARE, SELFPAY ==
--- NOTE | 2022-09-06 09:30 | STEWCON_ITS ---
Reason For Study: CHEST PAIN Stress Results Protocol: FRANKO WITH DEFINITY Maximum Predicted HR: 145 bpm Target HR: 123 bpm % Maximum Predicted HR: 97 % DurationHeart Rate Stage (mm:ss) (bpm) BP Comment BASELINE 63 138/72 STAGE 1 3:00 86 148/56 STAGE 2 3:00 107 158/52 STAGE 3 3:00 141 174/60 RECOVERY 75 130/722 CC DEFINITY FOR ENTIRE TEST Stress Duration: 9:00 mm:ss Maximum Stress HR: 141 bpm Baseline Echocardiogram Findings Stress Echo Wall motion Data Resting WM Intermediate WM Stress WM ECHO/Stress Test Echo W/Contrast Interpretation Summary Exercise stress echocardiogram. 77-year-old lady with a history of chest pain. Resting EKG demonstrates sinus rhythm with a rate of 59 bpm no acute changes no monica resting blood pressure is 138/72 mmHg. The patient exercised according to the regular Franko p rotocol for total duration of 9 minutes. Patient completed stage III of the Franko protocol. At re st there were no ST or T wave changes noted to suggest ischemia and at peak exercise no ST changes were noted we did not meet the criteria for ischemia. The peak blood pressure was 174/60 mmHg and a m aximum heart rate of 141 bpm which was 97% of max impacted heart rate the test was discontinued due to dyspnea. Stress echocardiogram. Resting and stress echocardiographic evaluation was perf ormed with Definity enhancement. The resting ejection fraction was noted to be 55%. There was thick ening of all sol and reduction of low ventricular cavity size with peaking of ejection fraction at 70%. No wall motion abnormalities were noted. Conclusion: Normal exercise stress echocardiogram at a high workload. Ordering Physician: Chencho Barrett Performed By: Tiana Trivedi, RDCS, RVT
== END | disposition home or self-care (01) ==
PROVIDERS: PCP Internal Medicine; Visit Provider Internal Medicine Cardiovascular Disease
DX: R07.9 Chest pain, unspecified (principal); I31.4 Cardiac tamponade
CPT/HCPCS: 93017; 93350; Q9957; A4216; C8928

== ENCOUNTER → 2022-11-20 | Outpatient (CLI) | payer MEDICARE, SELFPAY ==
[2022-11-20 07:24] LABS: Absolute Lymphocyte Count 1.31 X10^3/uL (0.83-4.51); Absolute Neutrophil Count 3.2 X10^3/uL (2.0-7.7); Basophil# 0.06 X10^3/uL; Basophil% 1.1 % (0-1); Eosinophils% 3.7 % (0-5); Hematocrit 42.2 % (37-47); Hemoglobin 13.6 g/dL (12.0-15.0); Lymphocyte # 1.31 X10^3/ul (0.83-4.51); Lymphocyte % 24.4 % (19-41); Mean Corp Hgb Conc 32.2 g/dL (32-36); Mean Corpuscular Hgb 29.6 pg (27.0-32.0); Mean Corpuscular Volume 91.9 fL (81-99); Mean Platelet Vol. 9.6 fl (6.2-12.0); Monocyte# 0.61 X10^3/uL; Monocyte% 11.4 % (0-10); NRBC Flagged by Analyzer 0 % (0-5); Neutrophil # 3.18 X10^3/uL (2.7-7.7); Neutrophil % 59.2 % (47-70); Platelet Count 292 K/mm3 (150-450); RBC Distribution Width CV 12.4 % (11.6-14.6); RBC Distribution Width SD 42.3 fl (35.1-43.9); Red Blood Count 4.59 M/mm3 (4.2-5.4); White Blood Count 5.4 K/mm3 (4.4-11.0)
[2022-11-20 08:03] LABS: ALB/GLOB Ratio 1.1 RATIO (0.9-2.4); AST(SGOT) 24 U/L (15-37); Alanine Aminotransfer ALT/SGPT 25 U/L (13-56); Albumin, Serum 3.9 g/dL (3.2-5.0); Alkaline Phosphatase 62 U/L (45-117); Anion Gap 4 (5-15); BUN 15 mg/dL (7-18); BUN/Creat Ratio 18.8 RATIO (10-20); Calcium,Total 9.4 mg/dL (8.5-10.1); Chloride 103 mmol/L (98-107); Cholesterol 174 mg/dL (200); EST Glomerular Filtration Rate 75 mL/min (>60); Est Glom Filt Rate - Afr Amer 90 mL/min (>60); Globulin 3.4 g/dL (2.2-4.2); Glucose 113 mg/dL (74-106); High Density Lipoprotein 50 mg/dL; Potassium 3.7 mmol/L (3.5-5.1); Protein, Total 7.3 g/dL (6.4-8.2); Sodium Level 138 mmol/L (136-145); Thyroid Stim Hormone (TSH) 1.98 uIU/mL (0.358-3.74); Triglycerides 153 mg/dL; Very Low Density Lipoprotein 31 mg/dL (5-40)
[2022-11-20 08:15] LABS: Vitamin D,25 Hydroxy 102.2 ng/mL
[2022-11-20 08:50] LABS: Hemoglobin A1c 5.8 % (3.8-5.6)
== END | disposition home or self-care (01) ==
LOC: LAB 06:40
PROVIDERS: PCP Internal Medicine; Referring Provider Internal Medicine; Visit Provider Internal Medicine
DX: I10 Essential (primary) hypertension (principal); E78.5 Hyperlipidemia, unspecified; R73.01 Impaired fasting glucose; E03.9 Hypothyroidism, unspecified; E55.9 Vitamin D deficiency, unspecified
CPT/HCPCS: 36415; 80053; 80061; 82306; 83036; 84443; 85025

== ENCOUNTER → 2022-12-10 | Outpatient (CLI) | payer MEDICARE, SELFPAY ==
--- NOTE | 2022-12-10 13:50 | US_ITS ---
EXAM: US PELVIS TRANSABDOMINAL AND TRANSVAGINAL, COMPLETE CLINICAL INDICATION: pt having right sided pelvc pain, please do complete pelvic US -- TECHNIQUE: Transabdominal and transvaginal pelvic ultrasound was performed with grayscale and color Doppler imaging. Transvaginal imaging was used for better evaluation of the endometrium and adnexa. COMPARISON: No relevant prior studies available. FINDINGS: UTERUS/CERVIX: 9 mm x 7 mm x 9 mm hypoechoic possibly complex nabothian cervical cysts. Uterus 6.9 cm x 3.3 cm x 4.8 cm. There is distention of the endometrial cavity with hypoechoic fluid seen on the transvaginal exam, 1.3 cm AP, with a mildly nodular echogenic appearance along the anterior upper endometrium measuring roughly 4 mm x 5 mm x 3 mm, uncertain whether this is a submucosal fibroid or polyp. Small nabothian cervical cyst. 9 mm x 7 mm x 10 mm anterior myometrial-subserosal heterogeneous presumed fibroid. Anteverted. RIGHT OVARY: Right ovary 1.7 cm x 1.3 cm x 1.8 cm. Blood flow is present in the right ovary. LEFT OVARY: Left ovary not identified. FREE FLUID: None. BLADDER: Unremarkable as visualized. Wall is normal thickness for degree of distention. US/Pelvic (Non ) IMPRESSION: 1. Fluid distending the endometrial canal, suspicion of intraluminal blood, correlate with any vaginal bleeding or evidence of cervical stenosis. Fluid in the endometrial canal was also mentioned on prior exam. Suspicion of small hyperechoic nodule projecting into the endometrial fluid from the anterior wall of the upper endometrium. This may be small polyp submucosal fibroid, versus early neoplasm. Consider tissue sampling is thought to be indicated but a 8 mm nodule likely polyp was described on prior exam in 2018. 2. The prior images from 2018 were not received. Direct comparison is suggested if the prior exams can be provided. 4. Suspicion of myometrial-subserosal fibroid. 5. 9 mm well-circumscribed hypoechoic lesion in the posterior lip of the cervix, suspected complex nabothian cyst. Please correlate with recent pelvic exam and Pap smear. Cervix was reported to be unremarkable on the prior report from 2018. 6. Normal right ovary. Reported left oophorectomy. Electronically Signed: Jessica Yoon MD at 9:04 EDT Reading Location ID and State: [facility] / [place] Tel , Service support ,
== END | disposition home or self-care (01) ==
LOC: US 13:47
PROVIDERS: PCP Internal Medicine; Referring Provider Internal Medicine; Visit Provider Internal Medicine
DX: R10.2 Pelvic and perineal pain (principal)
CPT/HCPCS: 76830; 76856

== ENCOUNTER → 2022-12-31 | Outpatient (CLI) | payer MEDICARE, SELFPAY ==
--- NOTE | 2022-12-31 07:24 | BI_ITS ---
MAMMOGRAPHY - BILATERAL SCREENING REASON FOR EXAM: Female, 77 years old. Routine annual screening examination. PERTINENT HISTORY: Non-contributory. Remote left excisional breast biopsy. TECHNIQUE: Digital bilateral breast mert (3D mammographic acquisition) in the CC and MLO projections. 2-D mediolateral oblique (MLO) and craniocaudad (CC) views of both breasts were obtained. CAD: Full Field Digital Mammography with Computer Added Detection was performed. COMPARISON: Comparison is made with prior study dated December 26, 2021 and December 13, 2020. FINDINGS: Breast Composition: The breasts are heterogeneously dense, which may obscure small masses. There are no dominant masses or suspicious calcifications. No other significant abnormalities are identified. There has been no significant change since the prior study. BI/SCRN MAMM (CAD)W/MERT BILAT IMPRESSION: Stable bilateral screening mammogram. Yearly follow-up mammogram recommended. (A) ASSESSMENT CATEGORY: BIRADS Category 1: Negative. A letter regarding these results will be sent to the patient by the facility within 30 days. Approximately 10% of breast cancers are not detected by mammography. A normal mammogram should not delay biopsy of a clinically suspicious abnormality. [id number] Electronically Signed: Kvng Gilman MD at 8:48 EDT ,
== END | disposition home or self-care (01) ==
LOC: OPBI 07:22
PROVIDERS: PCP Internal Medicine; Referring Provider Internal Medicine; Visit Provider Internal Medicine
DX: Z12.31 Encounter for screening mammogram for malignant neoplasm of breast (principal)
CPT/HCPCS: 77063; 77067

== ENCOUNTER → 2023-01-07 | Outpatient (CLI) | payer MEDICARE, SELFPAY ==
--- NOTE | 2023-01-07 08:55 | ECHOCS_ITS ---
Reason For Study: MR Procedure This was a 2D Doppler, Color Flow transthoracic echocardiogram. The study was technically difficult. Contrast injection was performed. Exam performed in department. Left Ventricle Normal LV size. Left ventricular systolic function is normal. The estimated ejection fraction is 60 %. Stage 1 diastolic dysfunction. No regional wall motion abnormalities noted. Right Ventricle Normal RV size. Normal systolic function. Atria Normal left atrium. Normal right atrium. Mitral Valve Normal mitral valve. Mild (1+) eccentric mitral valve insufficiency. Tricuspid Valve Normal tricuspid valve. Mild (1+) tricuspid valve insufficiency. Pulmonary artery systolic pressure is 39 mmHg. Aortic Valve Trisinus/trileaflet aortic valve. Mild focal aortic valve calcification. Mild (1+) eccentric aortic valve insufficiency. Pulmonic Valve Normal pulmonic valve. Trivial pulmonic valve insufficiency. Great Vessels Normal aortic root. The pulmonary artery is normal size. Normal inferior vena cava. Pericardium/Pleural No pericardial effusion. Medication 22 gauge I.V. with prn adaptor inserted into right arm. Diluted definity 3ml given slow IV push to enhance endocardial definition. MMode/2D Measurements & Calculations LVIDd: 4.7 cm IVSd: 0.80 cm Ao root diam: 3.0 cm LVIDs: 2.6 cm LVPWd: 0.93 cm RVDd: 2.7 cm FS: 45.7 % LAV(MOD-bp): 54.3 ml LVAd ap4: 20.7 cm2 SV(MOD-sp4): 29.6 ml LAV(MOD-bp) Indexed: 34.8 ml/m2 LVLd ap4: 6.8 cm LAV(MOD-sp2): 58.6 ml EDV(MOD-sp4): 51.8 ml LAV(MOD-sp4): 50.3 ml EDV(sp4-el): 53.4 ml LVAs ap4: 12.2 cm2 LVLs ap4: 5.8 cm ESV(MOD-sp4): 22.2 ml ESV(sp4-el): 21.8 ml EF(MOD-sp4): 57.1 % EF(sp4-el): 59.2 % SV(sp4-el): 31.6 ml LA A4 area: 18.2 cm2 LA dimension(2D): 4.0 cm RA A4 area: 11.1 cm2 Time Measurements MV dec time: 0.22 sec Doppler Measurements & Calculations MV E max dorian: 79.7 cm/sec Lat Peak E' Dorian: 9.6 cm/sec Med Peak E' Dorian: 5.4 cm/sec MV A max dorian: 108.5 cm/sec E/E' lat: 8.3 E/E' med: 14.7 MV E/A: 0.73 MV V2 max: 117.9 cm/sec MV dec slope: 362.7 cm/sec2 Ao V2 max: 140.9 cm/sec MV max P.6 mmHg Ao max P.9 mmHg MV V2 mean: 59.8 cm/sec Ao V2 mean: 96.8 cm/sec MV mean P.7 mmHg Ao mean P.3 mmHg MV V2 VTI: 40.8 cm Ao V2 VTI: 39.1 cm AV (velocity ratio): 0.66 LV V1 max: 97.7 cm/sec MR max dorian: 604.0 cm/sec PA V2 max: 91.9 cm/sec LV V1 max P.8 mmHg MR max P.9 mmHg PA V2 mean: 62.4 cm/sec LV V1 mean P.1 mmHg MR mean dorian: 493.0 cm/sec LV V1 mean: 68.1 cm/sec MR mean P.5 mmHg LV V1 VTI: 25.8 cm MR VTI: 253.4 cm TR max dorian: 294.4 cm/sec PI dec slope: 145.9 cm/sec2 TR max P.7 mmHg ECHO/Echo Complete W/ Contrast Interpretation Summary Normal LV size. Left ventricular systolic function is normal. The estimated ejection fraction is 60 %. Stage 1 diastolic dysfunction. Mild (1+) eccentric mitral valve insufficiency. Contrast injection was performed. Ordering Physician: Lexi Maria Referring Physician: Lexi Maria Performed By: Alyssa Lechuga RCS
== END | disposition home or self-care (01) ==
LOC: CVS 08:49
PROVIDERS: PCP Internal Medicine; Referring Provider Internal Medicine; Visit Provider Internal Medicine
DX: I34.0 Nonrheumatic mitral (valve) insufficiency (principal)
CPT/HCPCS: 93306; Q9957; A4216; C8929

== ENCOUNTER → 2023-04-22 | Outpatient (CLI) | payer MEDICARE, SELFPAY ==
--- NOTE | 2023-04-22 07:56 | CT_ITS ---
STUDY: CT CHEST WITHOUT CONTRAST REASON FOR EXAM: Female, 78 years old. 20 years of shortness of breath. RADIATION DOSAGE (If Supplied By Facility): CTDIvol = ( 7.72 ) mGy, DLP = ( 231.38 ) mGycm TECHNIQUE: Transaxial imaging was performed without the administration of intravenous contrast material. Multiplanar coronal and sagittal images were reformatted. Individualized dose optimization techniques were used for this CT. COMPARISON: Comparison is made with prior chest radiograph dated June 27, 2021. FINDINGS: CHEST Minimal degree of increased linear markings in the peripheral aspect of both upper lobes and lower lobes suggestive of subpleural scarring. 2 mm noncalcified nodule in the anterior aspect of the right middle lobe as seen on axial image #55. There is no demonstrated pleural abnormality. There are calcifications of the coronary arteries. There are multiple small lymph nodes within the mediastinum, which are normal in size and morphology most compatible with reactive lymph hyperplasia. Normal hilar regions. Normal unenhanced pulmonary arteries. There is atherosclerotic calcification of the aortic arch with tortuosity and elongation of the aortic arch and descending thoracic aorta. There are degenerative changes of the thoracic spine. There is no demonstrated abnormality of the visualized upper abdomen. CT/Chest without Contrast IMPRESSION: Mild degree of increased interstitial markings in the peripheral aspects of both upper and lower lobe suggestive of a mild scarring. Electronically Signed: Kvng Gilman MD at 9:14 EDT ,
== END | disposition home or self-care (01) ==
LOC: CT 07:55
PROVIDERS: PCP Internal Medicine; Referring Provider Internal Medicine Pulmonary Disease; Visit Provider Internal Medicine Pulmonary Disease
DX: R06.02 Shortness of breath (principal)
CPT/HCPCS: 71250

== ENCOUNTER → 2023-06-15 | Outpatient (CLI) | payer MEDICARE, SELFPAY ==
--- NOTE | 2023-06-15 07:11 | RAD_ITS ---
STUDY: X-RAY CHEST REASON FOR EXAM: Female, 78 years old. Chest pain/pressure TECHNIQUE: PA and lateral views of the chest. COMPARISON: 06/27/2021 FINDINGS: The lungs are clear and expanded. There is no demonstrated pleural abnormality. Normal size heart. Normal mediastinum and lani. Normal visualized pulmonary arteries. Normal visualized aortic arch and descending thoracic aorta. There are diffuse degenerative changes of the visualized thoracic spine. Normal visualized ribs, clavicles, and shoulders. There is no demonstrated abnormality of the visualized soft tissue structures of the upper abdomen. RAD/Chest PA and Lateral IMPRESSION: No acute pulmonary process Electronically Signed: Arturo Rome MD at 11:19 EST ,
[2023-06-15 08:14] LABS: Absolute Lymphocyte Count 1.33 X10^3/uL (0.83-4.51); Absolute Neutrophil Count 3.4 X10^3/uL (2.0-7.7); Basophil# 0.06 X10^3/uL; Basophil% 1.1 % (0-1); Eosinophil# 0.26 X10^3/uL; Eosinophils% 4.6 % (0-5); Hematocrit 39.4 % (37-47); Hemoglobin 12.8 g/dL (12.0-15.0); Lymphocyte # 1.33 X10^3/ul (0.83-4.51); Lymphocyte % 23.5 % (19-41); Mean Corp Hgb Conc 32.5 g/dL (32-36); Mean Corpuscular Hgb 29.4 pg (27.0-32.0); Mean Corpuscular Volume 90.6 fL (81-99); Mean Platelet Vol. 9.9 fl (6.2-12.0); Monocyte# 0.58 X10^3/uL; Monocyte% 10.2 % (0-10); NRBC Flagged by Analyzer 0 % (0-5); Neutrophil # 3.43 X10^3/uL (2.7-7.7); Neutrophil % 60.4 % (47-70); Platelet Count 272 K/mm3 (150-450); RBC Distribution Width CV 12.6 % (11.6-14.6); Red Blood Count 4.35 M/mm3 (4.2-5.4); White Blood Count 5.7 K/mm3 (4.4-11.0)
[2023-06-15 08:47] LABS: Anion Gap 5 (5-15); BUN 16 mg/dL (7-18); BUN/Creat Ratio 18.1 RATIO (10-20); Calcium,Total 9.7 mg/dL (8.5-10.1); Chloride 104 mmol/L (98-107); Creatinine, Serum 0.89 mg/dL (0.55-1.02); EST Glomerular Filtration Rate 66 mL/min (>60); Est Glom Filt Rate - Afr Amer 80 mL/min (>60); Glucose 119 mg/dL (74-106); Potassium 3.8 mmol/L (3.5-5.1); Sodium Level 140 mmol/L (136-145)
== END | disposition home or self-care (01) ==
LOC: LAB 07:01
PROVIDERS: PCP Internal Medicine; Referring Provider Nurse Practitioner Gerontology; Visit Provider Nurse Practitioner Gerontology
DX: I27.20 Pulmonary hypertension, unspecified (principal); R06.00 Dyspnea, unspecified
CPT/HCPCS: 36415; 71046; 80048; 85025

== ENCOUNTER 2023-06-24 10:45 | Observation (INO) | payer MEDICARE, SELFPAY ==
--- NOTE | 2023-06-18 16:56 | PCM.HP.BLA ---
History and Physical Date of Admission: 06/24/23 This is a pleasant 78-year-old lady who presents to the cardiac laboratory mechanical technician for a right heart catheterization. She was recently seen by Dr. Peres for pulmonary hypertension, and a right cardiac catheterization was recommended. She has no previous cardiac history other than hypertension who was referred to see us for evaluation of her stress test. As part of her work-up she underwent an echocardiographic evaluation last year which demonstrated an ejection fraction of 65% mild left ear enlargement thickened mitral valve with 1-2+ mitral regurgitation. She also underwent a stress test where she exercised 10 metabolic equivalents with 0.5 to [address] depression but with normal perfusion images. She did not have any evidence of ischemia at a workload of 10 metabolic equivalents. She also did not have any angina or undue shortness of breath. She has been compliant with her medications her blood pressure has been under excellent control at home. She unfortunately continues to have some shortness of breath with climbing stairs, palpitations and some shortness of breath when she lays flat at night. She has had no dizziness or diaphoresis and no near syncope or syncope. Intake Vital Signs See EMR Allergies See EMR Medications See EMR Ejection fraction %: 65 to 70 PFSH Medical History Chest pain Diverticulitis of colon Dyspnea on exertion Essential hypertension GERD (gastroesophageal reflux disease) Hyperlipidemia Hypothyroidism Nonrheumatic mitral (valve) insufficiency Nonrheumatic mitral (valve) prolapse Rosacea Surgical History History of breast biopsy History of colonoscopy Family History Father Myocardial infarction, Onset Age: 78Brother Hypertension Hyperlipidemia Cancer prostateMother Hyperlipidemia Social History Smoking Status: Never smoker alcohol intake: never substance use type: does not use caffeine: Yes Type: coffee Number of servings: 3 ROS Const Const: Negative for fatigue, weakness, headache(s), frequent falls, difficulty sleeping or excessive sweating Eyes Eyes: Negative for loss of peripheral vision, transient loss of vision, blurry vision, double vision or tunnel vision ENT ENT: Negative for headache(s), dizziness, Nosebleed/epistaxis or balance problems Cardio Chest Pain: No Palpitations: Yes (Infrequently. Not new) feels like its: other (flip flopping) Edema: None Muscle aches with walking: None Resp Respiratory: Positive for SOB with activity (Occasionally with stairs); Negative for SOB at rest, SOB orthopnea\SOB lying down (C/o SOB only when laying down on back for naps. Not at night. ), Cough or paroxysmal nocturnal dyspnea GI GI: Positive for heartburn (Increased recently); Negative nausea, vomiting or black,tarry stools : Negative for hematuria Musc Musc: Positive for joint pain; Negative for muscle aches/ myalgia, muscle weakness or balance problems Skin Skin: Negative non-healing lesions, rash or unusual bruising Neuro Neuro: Negative for dizziness, lightheadedness, near syncope, syncope, frequent falls, headache(s), weakness, blurry vision, double vision or lack of coordination Fernie Hematologic/Lymphatic: Negative for easy bleeding or easy bruising Endo Endo: Negative for fatigue, excessive sweating or increased thirst/drinking Psych Psych: Negative for anxiety or depression Allergy Allergy/Immunology: Negative for hives and Negative for rash Cardiology Exam Const Appearance: cooperative, healthy appearing, no acute distress, well developed and well groomed Nutritional Appearance: average body habitus and well nourished Orientation: alert, awake and oriented x3 Head Head: normal to inspection, normocephalic and atraumatic Ears: hearing grossly normal bilaterally and external ears normal Nose: external nose normal, nares normal, nasal mucous membranes and turbinates normal, septum normal and no nasal discharge Face and Sinus: face symmetric Mouth: oral mucosae normal, tongue normal, oropharynx normal and moist mucous membranes Teeth and gingiva: dentition normal Throat: posterior oropharynx normal, tonsils normal and uvula midline Eyes General: appearance normal, both eyes and all related structures Eyelids: eyelids normal Conjunctivae: conjunctivae normal Pupils: PERRL, normal by confrontation and accommodation normal EOM: EOM intact bilaterally Neck Neck: normal visual inspection, trachea midline and no JVD JVD: +5 Carotids: normal carotid upstroke and bounding pulses Chest Chest inspection: normal inspection of the chest, symmetric chest movement and normal respiratory effort Auscultation: Bilateral: Clear to Auscultation Cardio Palpation: normal PMI Rate: regular rate Rhythm: regular rhythm Heart sounds: S1 normal, S2 normal and normal, physiologic split S2; Negative rub, gallop or murmur GI GI: normal to inspection, soft, no hepatosplenomegaly and bowel sounds present Neuro General: patient alert, patient awake, patient oriented x3, gait normal, moves all extremities and no focal sensory deficit Skin Skin: no rashes or lesions noted Extremities Pulses: Normal: Right Femoral Pulse, Left Femoral Pulse, Right Dorsalis Pedis Pulse, Left Dorsalis Pedis Pulse, Right Posterior Tibial Pulse, Left Posterior Tibial Pulse, Right Radial Pulse and Left Radial Pulse Lower Extremity Edema: None: Bilateral Musculoskel Musculoskeletal: No joint tenderness Psych Psychological: normal affect Supplemental Info Supplemental Information Stress Test Report Nuclear Medicine Date: 08-08-2021 Procedure: Exercise tolerance test/imaging study Procedure: The patient exercised on a Franko protocol for 8 minutes completing Stage II and 2 minutes of Stage III achieving a peak heart rate of 141 bpm (96% predicted maximal heart rate) with a peak blood pressure 164/72 mmHg and a peak MET capacity of 10 METs. The baseline ECG demonstrated normal sinus rhythm. The peak exercise ECG demonstrated somatic/motion artifact with approximately 0.5 to 1.[address] segment depression in lead V3 through V6 with resolution towards baseline beginning less than 1 minute in recovery. There was a rare PVC during exercise. The functional capacity was considered good. There was no complaint of chest discomfort during exercise or recovery. The examination was discontinued secondary to dyspnea. Impression: 1. Technically adequate (percent predicted maximal heart rate greater than 85%) exercise tolerance test 2. Peak exercise ECG with somatic/motion artifact with approximately 0.5 to 1.[address] segment depression in lead V3 through V6 with resolution towards baseline beginning less than 1 minute in recovery 3. There was a rare PVC during exercise 4. Nuclear images pending Myocardial perfusion imaging study: The patient was injected with 11.8 mCi of technetium 99m Cardiolite and subsequently rest SPECT Cardiolite nuclear imaging was obtained in the horizontal long, vertical long, and short axis views. The patient exercised on a Franko protocol for 8 minutes completing Stage II and 2 minutes of Stage III achieving a peak heart rate of 141 bpm (96% predicted maximal heart rate) with a peak blood pressure 164/72 mmHg and a peak MET capacity of 10 METs. The patient was injected with 33.3 mCi of technetium 99m Cardiolite and subsequently stress SPECT Cardiolite nuclear imaging was obtained in the horizontal long, vertical long, and short axis views. A gated Cardiolite study at peak stress was obtained. Interpretation: Rest and stress SPECT Cardiolite nuclear imaging status post realignment and normalization demonstrates the appearance of relative uniform tracer uptake and myocardial perfusion appearing within normal limits. There is end systolic thickening and brightening. The gated Cardiolite study demonstrates myocardial thickening and inward wall motion. The reported LVEF is 80%. Impression: 1. Rest and stress SPECT Cardiolite nuclear imaging demonstrate relative uniform tracer uptake and myocardial perfusion appearing within normal limits. 2. The gated Cardiolite study reports an LVEF of 80%. ECHOCARDIOGRAM 05/03/2020 Interpretation Summary Left ventricular systolic function is normal. The estimated ejection fraction is 65 %. The left atrium is mildly enlarged. Mild diffuse mitral valve thickening. Mild-Moderate (1-2+) mitral valve insufficiency. Trivial tricuspid valve insufficiency. Mild focal aortic valve calcification. Trivial aortic valve insufficiency. Trivial pulmonic valve insufficiency. Right ventricular systolic pressure estimated to be 27 mmHg. Diastolic function is indeterminate. ECHOCARDIOGRAM 07/04/2018 Interpretation Summary Left ventricular systolic function is normal. The estimated ejection fraction is 65 %. Mild diffuse mitral valve thickening. Mild-Moderate (1-2+) mitral valve insufficiency. Mild to moderate (1-2+) tricuspid valve insufficiency. Mild focal aortic valve calcification. Trivial aortic valve insufficiency. Mild (1+) pulmonic valve insufficiency. Calcified aortic root. Trivial pericardial effusion. There are no echocardiographic indications of cardiac tamponade. Right ventricular systolic pressure estimated to be 31 mmHg. Diastolic function is indeterminate. Assessment and Plan Assessment and Plan (1) Pulmonary hypertension: Status: Chronic Plan: Patient has a history of pulmonary hypertension. She continues to have dyspnea on exertion. She was recently seen by Dr. Peres, and would like to proceed with a right cardiac catheterization to further assess this.
[2023-06-24 08:00] VITALS: BMI 27.4
[2023-06-24 09:34] LABS: Blood Gas Specimen Type VEN; O2 Delivery Device Not entered; SITE Not entered; VBG BASE EXCESS 4 mmol/L (-1.0-3.5); VBG BASE EXCESS 5 mmol/L (-1.0-3.5); VBG Bicarbonate 29 mmol/L (22-26); VBG PO2 37 mmHg (25-40); VBG PO2 41 mmHg (25-40); VBG SO2 70 % (50-70); VBG SO2 76 % (50-70); VBG TCO2 30 mmol/L (23-33); VBG TCO2 31 mmol/L (23-33); VBG pCO2 45.3 mmHg (41-51); VBG pCO2 47.5 mmHg (41-51); VBG pH 7.41 (7.32-7.42)
[2023-06-24 09:43] LABS: Base Excess 1 mmol/L (-2 to +2); Blood Gas Specimen Type ART; Mode Not entered; O2 Delivery Device Not entered; PO2 65 mmHG (75-100); SITE Not entered; SO2 92 % (95-99); Total Carbon Dioxide 27 mmol/L; pCO2 42.2 mmHg (35-45)
--- NOTE | 2023-06-24 10:09 | CL.D_ITS ---
Patient Name: JONATHAN PURCELL Study Date: 06/24/2023 Performing: Chencho Barrett MD Ht: 59.5 inches 151.13 cm : 1945 Wt: 136 lbs 61.69 kg Age: 78 Gender: female BSA: 1.57 PROCEDURE(S) PERFORMED DC05-([id number])RHC/LHC/COR/LV CLINICAL PROFILE AND INDICATIONS Indications: Suspected CAD Heart Failure: None CONCLUSIONS Moderately severe proximal to mid LAD stenosis with normal coronary arteries noted and normal pulmonary pressures and normal pulmonary capillary wedge pressure. RECOMMENDATIONS Referred for immediate PCI DESCRIPTION OF PROCEDURE The patient arrived to the procedure lab. The risks and benefits of the procedure as well as a full description of our services here and current unavailability of surgical backup were fully explained to the patient and/or their significant other prior to the catheterization. The Timeout was completed, verifying the correct patient and procedure. The patient's procedural site was prepped and draped in the usual fashion. Local anesthetic was given subcutaneously to right brachial region with Lidocaine 2%. Local anesthetic was given subcutaneously to right radial region with Lidocaine 2%. Local anesthetic was given subcutaneously to right groin region with Lidocaine 2%. Using a modified Seldinger technique, arterial access was obtained via the right radial artery, a 6Fr sheath was inserted., arterial access was obtained via the right femoral artery, a 5Fr sheath was inserted. Venous access was obtained via the right brachiocephalic vein, a 7Fr sheath was inserted. A 7Fr thermal dilution catheter was inserted and right heart pressures were recorded, it was then advanced to PA position for cardiac outputs. Thermal dilution cardiac outputs were then recorded. O2 saturations were then obtained. The Thermal dilution catheter was then removed. Left Coronary Artery selective angiography was performed in multiple views using a 5 Fr. JL4 catheter. Right Coronary Artery selective angiography was then performed in multiple views using a 5 Fr. 3DRC (Eulalio) catheter. Left Ventriculography was performed in GRANDE projection using a 5 Fr. Pigtail catheter. LV to AO pullback pressures were then recorded. CORONARY ANGIOGRAPHY DOMINANCE: Right Dominant LEFT HEART ASSESSMENT Left Ventricular Ejection Fraction: by LV Gram 60 % Normal LV wall motion Normal Left Ventricular systolic function RIGHT HEART ASSESSMENT Thermal CO: 4.82 Thermal CI: 3.06 Raz CO: 5.47 Raz CI: 3.47 PW: 14/12 12 PA: 34/16 23 RV: 37/6 10 RA: 1210 9 PVR: 182 SVR: 1642 Right Heart pressures - normal LEFT MAIN: Angiographically normal LEFT ANTERIOR DESCENDING ARTERY: 75% proximal LAD at the bifurcation of the first diagonal vessel. And mid to distal 50% stenosis present. CIRCUMFLEX ARTERY: Mild luminal irregularities RIGHT CORONARY ARTERY: No significant disease noted COMPLICATIONS PROCEDURE MEDICATIONS Fentanyl 50 mcg IV Versed 1 mg IV Versed 1 mg IV Aspirin (325mg) 1 Tabs PO 06/24/2023 08:18:10 Brilinta 180 mg PO @ 06/24/2023 09:57:44 Heparin given IA 06/24/2023 09:22:20 Heparin 4000 unit(s) IV 06/24/2023 09:57:55 Verapamil 2.5mg, Ntg 100mcgs, 3000 units of Heparin given IA 06/24/2023 09:22:20 SUMMARY OF HEMODYNAMIC DATA Time AIR REST ECG 08:20:34 RA 06/30 (9) SV 09:27:36 RV 37/6, 10 09:27:51 PA 34/16 (23) PA 09:28:15 PW 14/12 (12) PV 09:28:30 PA 46/17 (27) 09:32:17 RV 43/6, 11 09:32:24 RA 15/23 (16) 09:32:34 AO 164/70 (108) SA 09:41:55 LV 156/11, 19 09:49:12 LV 165/11, 18 09:49:21 LV 150/11, 18 09:49:51 LVp 159/11, 18 09:49:56 AOp 167/70 (110) 09:50:04 Type SV CO (l/m) CI (l/m/ HR Time AIR REST Thermal 79.10 4.82 3.06 61 08:20:34 Raz 89.70 5.47 3.47 61 08:20:34 Label % O2 Pres/Loc Time AIR REST PA 76 PA 09:35:04 RA 70 SV 09:35:14 AO 92 PV 09:42:50 Signed By Chencho Barrett MD On 06/24/2023 10:09:19 Chencho Barrett MD
--- NOTE | 2023-06-24 10:44 | CL.I_ITS ---
Patient Name: JONATHAN PURCELL Study Date: 06/24/2023 Performing: Lillie Balbuena MD Ht: 59.5 inches 151.13 cm : 1945 Wt: 136 lbs 61.69 kg Age: 78 Gender: female BSA: 1.57 PROCEDURE(S) PERFORMED IC12-(37078/[id number])HAROLDO W/WO PTCA, SINGLE CORONARY ARTERY CLINICAL PROFILE AND CO-MORBIDITIES Indications: Suspected CAD Heart Failure: None CONCLUSIONS Successful HAROLDO distal LAD using Rubina [place] 2.5x8 mm Successful HAROLDO Mid LAD using Rubina [place] 2.75x30 mm, post-dilated using 3.0 mm ballon, optimized proximally using 3.25 mm balloon RECOMMENDATIONS ASA Indefinitley Plavix for at least 12 months DESCRIPTION OF PROCEDURE The patient arrived to the procedure lab. The risks and benefits of the procedure as well as a full description of our services here and current unavailability of surgical backup were fully explained to the patient and/or their significant other prior to the catheterization. The Timeout was completed, verifying the correct patient and procedure. The patient's procedural site was prepped and draped in the usual fashion. Local anesthetic was given subcutaneously to right brachial region with Lidocaine 2%. Local anesthetic was given subcutaneously to right radial region with Lidocaine 2%. Local anesthetic was given subcutaneously to right groin region with Lidocaine 2% Using a modified Seldinger technique,arterial access was obtained via the right radial artery, a 6Fr sheath was inserted., arterial access was obtained via the right femoral artery, a 5Fr sheath was inserted.Venous access was obtained via the right brachiocephalic vein, a 7Fr sheath was inserted. A 7Fr thermal dilution catheter was inserted and right heart pressures were recorded, it was then advanced to PA position for cardiac outputs. Thermal dilution cardiac outputs were then recorded. O2 saturations were then obtained. The Thermal dilution catheter was then removed. Left Coronary Artery selective angiography was performed in multiple views using a 5 Fr. JL4 catheter. Right Coronary Artery selective angiography was then performed in multiple views using a 5 Fr. 3DRC (Eulalio) catheter. Left Ventriculography was performed in GRANDE projection using a 5 Fr. Pigtail catheter. LV to AO pullback pressures were then recorded.The images were reviewed and options discussed. A decision was then made to proceed with an Intervention, IVUS or other adjunct procedure. Arterial sheath was exchanged for a 6 Fr Sheath. XB 3.5 Guide catheter was inserted and engaged into the LCA. Runthrough Guide wire was advanced to the LAD. Rubina [place] 2.5 x 8 Drug Eluting stent was inserted. Drug Eluting stent was advanced across the lesion in the LAD, distal. NC Emerge 2.5 x 8 Balloon catheter was inserted. Balloon catheter was advanced across lesion in the LAD, distal. Rubina [place] 2.75 x 30 Drug Eluting stent was inserted. Drug Eluting stent was advanced across the lesion in the LAD, mid. Angiogram performed post stent deployment. NC Emerge 3.0 x 20 Balloon catheter was inserted. Balloon catheter was advanced across lesion in the LAD, mid. NC Emerge 3.25 x 8 Balloon catheter was inserted. Balloon catheter was advanced across lesion in the LAD, mid. Contrast was injected through the sheath and the Right Iliac and Femoral artery were assessed for possible closure device. The femoral arterial sheath was pulled and a Perclose closure device was deployed for hemostasis. The Radial arterial sheath was pulled and a TR Band was applied for hemostasis INTERVENTION INFORMATION LESION SITE: LAD (Distal) Lesion Complexity: Non-High/Non-C, lesion length: 6 mm Pre Stenosis: 70 % Pre intervention CHRISTINA flow: 3 PROCEDURE: Drug Eluting Stent with post dilatation Post Stenosis: 0 % Post intervention CHRISTINA flow: 3 Lesion Devices: Cordis 6 Fr XB3.5 100cm Guide Catheter Terumo .014 180cm Runthrough Extra Floppy straight Medtronic 2.50 x 08 RUBINA FRONTIER HAROLDO [employer] Sci NC EMERGE MR 2.50x08 BALLOON LESION SITE: LAD (Mid) Lesion Complexity: High/C, lesion length: 26 mm Pre Stenosis: 80 % Pre intervention CHRISTINA flow: 3 PROCEDURE: Drug Eluting Stent with post dilatation Post Stenosis: 0 % Post intervention CHRISTINA flow: 3 Lesion Devices: Cordis 6 Fr XB3.5 100cm Guide Catheter Terumo .014 180cm Runthrough Extra Floppy straight Medtronic 2.75 x 30 RUBINA FRONTIER HAROLDO [employer] Sci NC EMERGE MR 3.00x20 BALLOON Jerry Sci NC EMERGE MR 3.25x08 BALLOON COMPLICATIONS No Complications PROCEDURE MEDICATIONS Fentanyl 50 mcg IV Versed 1 mg IV Versed 1 mg IV Fentanyl 25 mcg IV Aspirin (325mg) 1 Tabs PO 06/24/2023 08:18:10 Brilinta 180 mg PO @ 06/24/2023 09:57:44 Heparin given IA 06/24/2023 09:22:20 Heparin 4000 unit(s) IV 06/24/2023 09:57:55 Nitro 100 mcg IC 06/24/2023 10:12:09 Nitro 200 mcg IC 06/24/2023 10:19:26 Nitro 200 mcg IC 06/24/2023 10:28:13 Verapamil 2.5mg, Ntg 100mcgs, 3000 units of Heparin given IA 06/24/2023 09:22:20 SUMMARY OF HEMODYNAMIC DATA Time AIR REST ECG 08:20:34 RA 12/10 (9) SV 09:27:36 RV 37/6, 10 09:27:51 PA 34/16 (23) PA 09:28:15 PW 14/12 (12) PV 09:28:30 PA 46/17 (27) 09:32:17 RV 43/6, 11 09:32:24 RA 15/ (16) 09:32:34 AO 164/70 (108) SA 09:41:55 LV 156/11, 19 09:49:12 LV 165/11, 18 09:49:21 LV 150/11, 18 09:49:51 LVp 159/11, 18 09:49:56 AOp 167/70 (110) 09:50:04 Type SV CO (l/m) CI (l/m/ HR Time AIR REST Thermal 79.10 4.82 3.06 61 08:20:34 Raz 89.70 5.47 3.47 61 08:20:34 Label % O2 Pres/Loc Time AIR REST PA 76 PA 09:35:04 RA 70 SV 09:35:14 AO 92 PV 09:42:50 Signed By Lillie Balbuena MD On 06/24/2023 10:44:03 Lillie Balbuena MD
--- NOTE | 2023-06-24 13:24 | CRPHASE1_ITS ---
Patient Communication Patient Information Former Patient:: Phase I PHII Cardiac Rehab Discussed with Patient:: Yes Guide to Cardiac Rehab Given to Patient:: Yes Cardiac Rehab Facility Choice List Given to Patient:: Yes Communication to Cardiac Rehab Choice Program [facility] CR PHII:: Communication Given to CR Regasification Plant Operator:: Lillie Balbuena Cardiac Rehabilitation Info Program Information Cardiac Rehabilitation Program Information: Cardiac Rehab The cardiac rehab team at [facility] consists of highly skilled exercise physiologists, nurses, respiratory therapists and physicians working together with you. Our purpose is to help you have a full recovery and achieve the goals you set for yourself. Over the years many of our patients have returned to activities they assumed they would never do again! We can help restore your confidence and motivation to make lifestyle changes that can have a significant impact on your health and quality of life! We can help answer questions and concerns you may have about exercise, lifestyle, medications, diet, stress and anxiety which are common following a hospitalization. WE monitor ECG and vital signs during exercise and discuss your progress with you and report to your physician(s). Cardiac Rehab is proven to help reduce readmissions, improve functional capacity and lower recurrence of problems with your heart. Our Cardiac Rehab program is Certified by the [place] [employer] Pulmonary [employer] (AACVPR) and Accredited by the [place] [employer] through our [facility]. You can contact us at . We invite you to call us with your questions or to get started in our program. If you have other questions or concerns be sure to ask your physician/provider during your follow-up visit. WE look forward to seeing you!
--- NOTE | 2023-06-24 13:25 | CRPH1.INSTRU ---
General Education Discussed with Patient CAD and cardiac anatomy and function:: Patient communicates acknowledgment Explanation of diagnoses and procedures:: Patient communicates acknowledgment Sign/Symptoms of [place]:: Patient communicates acknowledgment Antiplatelet therapy: Patient communicates acknowledgment Proper use of NTG-SL: Patient communicates acknowledgment Emergency procedures and activation of EMS: Patient communicates acknowledgment Compliance of all prescribed medications: Patient communicates acknowledgment Smoking Risk Factors Patient Nicotine/Smoking Risk Factors Are:: Non-smoker Recommendations Recommendations Include:: Smoking cessation strategies/Smoking packet Response Code Nicotine/Smoking Response Code:: Patient communicates acknowledgment Dyslipidemia Risk Factors Patient Dyslipidemia Risk Factors Are:: Total Cholesterol, Triglycerides, HDL and LDL Response Code Dyslipidemia Response Code:: Patient communicates acknowledgment Overweight/Obesity Risk Factors Patient Overweight/Obesity Risk Factors Are:: BMI Normal [18-25 & < 65 years old], BMI Normal [24-29 & > 65 years old], Overweight = 26-29 and Obesity - > or = 30 Recommendations Recommendations Include:: Weight loss of 5-10%, Reduced calorie diet and Exercise 5-7 times/week Response Code Overweight/Obesity:: Patient communicates acknowledgment Hypertension Recommendations Recommendations Include:: Maintain BP <130/85, BP <130/80 if diabetic, Decrease/maintain normal body weight and Moderation of ETOH Response Code Hypertension:: Patient communicates acknowledgment Heart Disease Risk Factors Patient Heart Disease Risk Factors Are:: Family history of heart disease < 65 years old Response Code Heart Disease Response Code:: Patient communicates acknowledgment Diabetes Risk Factors Patient Diabetes Risk Factors Are:: No documented hx of diabetes Response Code Diabetes:: Patient communicates acknowledgment Metabolic Syndrome Risk Factors Patient Metabolic Syndrome Risk Factors Are [3 of 5]:: Fasting blood sugar > 100 mg/dL, Waist circumference > 35 [female] or 40 [male], High triglyceride >150, Hypertension and Low HDL <40 [male] or < 50 [female] Response Code Metabolic Syndrome Response Code:: Patient communicates acknowledgment Sedentary Risk Factors Patient Sedentary Risk Factors Are:: Lack of regular exercise Recommendations Recommendations Include:: Aerobic exercise 5-7 times/week for 20-30 minutes continuously, Benefits of regular exercise, Discussed home walking program and Monitored Outpatient Cardiac Rehab Response Code Sedentary Response Code:: Patient communicates acknowledgment Stress Risk Factors Patient Stress Risk Factors Are:: Patient denies stress as a risk factor Recommendations Recommendations Include:: Identification of stressors, and assessment of coping skills and Stress management techniques Response Code Stress Response Code:: Patient communicates acknowledgment
[2023-06-24 16:06] VITALS: BP 152/60; PULSE 59; RESP 16; TEMP 36.7; O2SAT 98
[2023-06-24] MEDS: Clopidogrel Bisulfate 300 MG Tablet PO (17:18)
[2023-06-24 21:00] VITALS: BP 146/65; PULSE 60; RESP 16; TEMP 36.8; O2SAT 97
[2023-06-24] MEDS: Carvedilol 3.125 MG TABLET PO (21:12)
[2023-06-24] MEDS: Acetaminophen 325 MG Tablet 650 MG PO (21:12)
[2023-06-24] MEDS: Atorvastatin Calcium 20 MG Tablet PO (21:13)
[2023-06-24] MEDS: traZODone 50 MG Tablet PO (23:00)
[2023-06-25 03:00] VITALS: BP 126/62; PULSE 54; RESP 16; TEMP 36.5; O2SAT 98
--- NOTE | 2023-06-25 06:53 | PCM.PN.CARD ---
Subjective Subjective Patient seen and evaluated. Appears to be doing well. Mild groin pain. Objective Data Vital Signs: Vital Signs Temp Pulse Resp BP Pulse Ox O2 Del Method 97.7 F L 54 L 16 126/62 H 98 Room Air 06/25/23 03:00 06/25/23 03:00 06/25/23 03:00 06/25/23 03:00 06/25/23 03:00 06/25/23 03:33 Oxygen Delivery Method Room Air Weight: 136 lb Body Mass Index (BMI) 27.4 Intake & Output: Intake and Output for Last 24 Hours 06/23/23 06/24/23 06/25/23 23:59 23:59 23:59 Intake Total 480 / 480 Balance 480 / 480 ABG Data ABG results: ABG 06/24/23 06/24/23 06/24/23 09:31 09:31 09:31 Specimen Type KEON KEON Sample Site Not entered Not entered pH Bicarbonate Actual Total CO2 Base Excess O2 Saturation ABG pCO2 ABG pO2 VBG pH 7.40 VBG pO2 VBG HCO3 VBG Total CO2 VBG O2 Sat (Calc) VBG Base Excess POC Mix VBG pCO2 Pt Tmp O2 Delivery Device Vent Mode 06/24/23 06/24/23 06/24/23 09:31 09:31 09:31 Specimen Type Sample Site pH Bicarbonate Actual Total CO2 Base Excess O2 Saturation ABG pCO2 ABG pO2 VBG pH 7.41 VBG pO2 37 41 H VBG HCO3 29 H 29 H VBG Total CO2 31 VBG O2 Sat (Calc) VBG Base Excess POC Mix VBG pCO2 Pt Tmp O2 Delivery Device Vent Mode 06/24/23 06/24/23 06/24/23 09:31 09:31 09:31 Specimen Type Sample Site pH Bicarbonate Actual Total CO2 Base Excess O2 Saturation ABG pCO2 ABG pO2 VBG pH VBG pO2 VBG HCO3 VBG Total CO2 30 VBG O2 Sat (Calc) 70 76 H VBG Base Excess 5 H 4 H POC Mix VBG pCO2 Pt Tmp 47.5 O2 Delivery Device Vent Mode 06/24/23 06/24/23 06/24/23 09:31 09:31 09:39 Specimen Type ART Sample Site Not entered pH 7.40 Bicarbonate Actual 26.0 Total CO2 27 Base Excess 1 O2 Saturation 92 L ABG pCO2 42.2 ABG pO2 65 L VBG pH VBG pO2 VBG HCO3 VBG Total CO2 VBG O2 Sat (Calc) VBG Base Excess POC Mix VBG pCO2 Pt Tmp 45.3 O2 Delivery Device Not entered Not entered Not entered Vent Mode Not entered Cardiology Labs/Tests 06/24/23 09:31: VBG pH 7.40 06/24/23 09:31: VBG pH 7.41, VBG pO2 37 06/24/23 09:31: VBG pO2 41 H, VBG HCO3 29 H 06/24/23 09:31: VBG HCO3 29 H, VBG O2 Sat (Calc) 70 06/24/23 09:31: VBG O2 Sat (Calc) 76 H, VBG Base Excess 5 H 06/24/23 09:31: VBG Base Excess 4 H 06/24/23 09:39: pH 7.40, Bicarbonate Actual 26.0, Base Excess 1, O2 Saturation 92 L, ABG pCO2 42.2, ABG pO2 65 L Rhythm: EKG: ECHO: Stress Test: Cardiac Cath: PCI: CT Surgery: Holter monitor: EPS: PPM: CXR: Chest CT Scan: Physical Exam Const alert, oriented x3 and no apparent distress General Appearance: cooperative HEENT hearing grossly normal bilaterally Head and Scalp: atraumatic Eyes EOMs intact bilaterally Neck General: normal visual inspection Chest inspection of chest normal and palpation of chest normal Resp normal respiratory effort Auscultation: clear to auscultation bilaterally Cardio regular rate, regular rhythm, S1 normal heart sound and S2 normal heart sound Jugular Venous Distention: JVD GI normal to inspection, nondistended, normoactive bowel sounds Extremity normal capillary refill and no pedal edema Peripheral Pulses: Yes pulses 2+ throughout and femoral pulses present Skin no rashes or lesions noted Neuro oriented x3 and CN's II-XII intact bilaterally Psych Appearance: grossly normal and appropriate Assessment & Plan Assessment/Plan (1) Stented coronary artery: PLAN: Patient underwent cardiac catheterization demonstrating high-grade mid LAD disease for which she underwent angioplasty and stenting. Pulmonary pressures were noted to be upper limits of normal. Patient to be discharged for outpatient follow-up and cardiac rehabilitation.
[2023-06-25 06:54] LABS: Hematocrit 37.8 % (37-47); Hemoglobin 12.2 g/dL (12.0-15.0); Mean Corp Hgb Conc 32.3 g/dL (32-36); Mean Corpuscular Volume 89.8 fL (81-99); Mean Platelet Vol. 9.7 fl (6.2-12.0); Platelet Count 237 K/mm3 (150-450); RBC Distribution Width CV 12.5 % (11.6-14.6); RBC Distribution Width SD 40.8 fl (35.1-43.9); Red Blood Count 4.21 M/mm3 (4.2-5.4); White Blood Count 7.3 K/mm3 (4.4-11.0)
--- NOTE | 2023-06-25 06:55 | DCINST_ITS ---
Discharge Instructions Diet Discharge Diet: No restrictions (You may continue your normal diet.) Activity Discharge Activity: Return to Normal Activity Lifting Restrictions: 10 pounds and also avoid any pushing or pulling for 3 days after your test. Additional Activity Instructions:: You must have someone drive you home. Do not drive until instructed by your doctor. You must have someone stay with you all night after your test. Rest in bed or on the couch until the next morning. Limit the number of times you go up and down stairs the day of your test. Apply pressure to the puncture site if you sneeze or cough. Dressing / Incision Call your doctor if your incision/area has: Increased Pain/ Swelling, Increased Redness, Foul Smelling Discharge and Swelling at the incision site Call your doctor if you observe: Fever of 101 or Higher Additional Dressing/Incision Instructions:: Keep the dressing (bandage) on until the next morning. You may then shower, but do not take a tub bath for 5 days after your test. It is normal to have some tenderness and discomfort at the puncture site. Sometimes bruising also occurs. However, if pain, numbness, or coldness occurs below the puncture site (in your leg, toes, arms or fingers) call your doctor at once. You may have a small, marble sized knot at the puncture site. This is normal. Do not rub it. It will go away in 4-6 weeks. Bleeding can occur from the area where the puncture was done. Blood may spurt or drip from the site. If blood spurts, apply pressure right away to stop bleeding and call 911. Although rare, bleeding into the tissue (hematoma) can also occur. If this happens, a large, firm area goose egg under the skin will appear. If any of these occur, lie down as flat as you can and have someone apply firm pressure to the cath site with a gauze pad or a clean washcloth for 10-15 minutes. Call 911 or go to the Emergency Department. Follow Up Care When: Pacer clinic on February 08 at 1:30 PM. Test Results: Test results from this visit will be discussed in further detail at your follow- up appointment, if applicable. Discharge Plan Admission Admit Date/Time: 06/24/23 10:45 Attending Provider: Chencho Barrett Primary Care Provider: Lexi Maria Discharge Orders/Prescriptions Prescriptions: No Action valsartan-hydrochlorothiazide 80-12.5 mg tablet 1 tab PO DAILY ascorbic acid (vitamin C) 1,000 mg tablet 1 g PO DAILY cholecalciferol (vitamin D3) 25 mcg (1,000 unit) capsule 25 mcg PO DAILY zinc 50 mg capsule 50 mg PO DAILY levothyroxine 100 MCG tablet 100 mcg PO DAILY rosuvastatin 10 MG tablet 10 mg PO DAILY Hold Instructions: muscle aches Patient Comments: trazodone 100 mg tablet 100 mg PO QHS PRN Patient Comments: take 1 tablet by mouth at bedtime if needed, pt takes 50-100 mg Referrals / Follow Up: Crow,Lexi, [Primary Care Provider] -
[2023-06-25 07:28] LABS: ALB/GLOB Ratio 1.1 RATIO (0.9-2.4); AST(SGOT) 18 U/L (15-37); Alanine Aminotransfer ALT/SGPT 19 U/L (13-56); Albumin, Serum 3.7 g/dL (3.2-5.0); Alkaline Phosphatase 64 U/L (45-117); Anion Gap 4 (5-15); BUN 16 mg/dL (7-18); BUN/Creat Ratio 20.9 RATIO (10-20); Calcium,Total 9.1 mg/dL (8.5-10.1); Chloride 107 mmol/L (98-107); Cholesterol 147 mg/dL (200); Creatinine, Serum 0.76 mg/dL (0.55-1.02); EST Glomerular Filtration Rate 78 mL/min (>60); Est Glom Filt Rate - Afr Amer 94 mL/min (>60); Estimated Creatinine Clearance 46.61 ml/min; Globulin 3.3 g/dL (2.2-4.2); Glucose 111 mg/dL (74-106); High Density Lipoprotein 53 mg/dL; Potassium 3.4 mmol/L (3.5-5.1); Sodium Level 139 mmol/L (136-145); Triglycerides 110 mg/dL; Very Low Density Lipoprotein 22 mg/dL (5-40)
[2023-06-25 08:40] VITALS: BP 137/53; PULSE 60; RESP 16; TEMP 36.9; O2SAT 100
[2023-06-25] MEDS: Carvedilol 3.125 MG TABLET PO (08:43)
[2023-06-25] MEDS: Ascorbic Acid 500 MG Tablet 1000 MG PO (08:43)
[2023-06-25] MEDS: Clopidogrel Bisulfate 75 MG Tablet PO (08:43)
[2023-06-25] MEDS: Cholecalciferol (VIT D3) 25 MCG TABLET (1,000 UNITS) PO (08:43)
[2023-06-25] MEDS: hydroCHLOROthiazide 12.5mg 12.5 MG PO (08:43)
[2023-06-25] MEDS: Zinc Sulfate 50 mg zinc (220 mg) ORAL capsule PO (08:43)
[2023-06-25] MEDS: Levothyroxine 100 MCG Tablet PO (08:44)
[2023-06-25] MEDS: Aspirin E.C. 81 MG Tablet PO (08:44)
[2023-06-25] MEDS: Losartan Potassium 25 MG Tablet PO (08:44)
[2023-06-25 09:54] LABS: ACT Activated Clotting Time 298 sec (74-137)
[2023-06-25 09:55] LABS: ACT Activated Clotting Time 287 sec (74-137)
--- NOTE | 2023-06-25 10:58 | PHA.DC.MC.R ---
Pharmacy [facility] has performed discharge medication reconciliation and counseling for this patient. 1. ASPIRIN 81MG PO DAILY 2. ATORVASTATIN 20MG PO QHS 3. CARVEDILOL 3.125MG PO BID 4. CLOPIDOGREL 75MG PO DAILY The patient's discharge medication list was reviewed for discrepancies and discrepancies were resolved. The patient was counseled on the following discharge medications and changes in medications for homegoing were reviewed. The Reason for Use, instructions for use, and potential side effects were reviewed for all new medications. The patient's questions regarding all of their medications were answered. The patient was able to verbally demonstrate an understanding of their discharge medications. Medications at Discharge Home Medications levothyroxine 100 mcg tablet 100 mcg PO DAILY thyroid 03/19/18 ascorbic acid (vitamin C) 1,000 mg tablet 1 g PO DAILY 08/18/21 cholecalciferol (vitamin D3) 25 mcg (1,000 unit) capsule 25 mcg PO DAILY vitamin 08/18/21 valsartan 80 mg-hydrochlorothiazide 12.5 mg tablet 1 tab PO DAILY blood pressure 08/18/21 zinc 50 mg capsule 50 mg PO DAILY supplement 08/18/21 trazodone 100 mg tablet 100 mg PO QHS PRN sleep 06/24/23 aspirin 81 mg tablet,delayed release 81 mg PO DAILY@0800 #90 tabs 06/25/23 atorvastatin 20 mg tablet 20 mg PO QHS #90 tabs 06/25/23 carvedilol 3.125 mg tablet 3.125 mg PO BID #180 tabs 06/25/23 clopidogrel 75 mg tablet 75 mg PO DAILY #90 tabs 06/25/23
--- NOTE | 2023-06-25 11:00 | CASEMGMT ---
Patient has order for discharge. RN CM in to discuss needs at discharge. Patient denies needs at discharge. Patient had no further questions or concerns.
== END 2023-06-25 06:58 | disposition home or self-care (01) ==
LOC: PCU 16:02
PROVIDERS: Internal Medicine Cardiovascular Disease; Admitting Provider Internal Medicine Cardiovascular Disease; PCP Internal Medicine; Referring Provider Internal Medicine Cardiovascular Disease; Visit Provider Internal Medicine Cardiovascular Disease
DX: I27.20 Pulmonary hypertension, unspecified (principal); I49.3 Ventricular premature depolarization; E78.5 Hyperlipidemia, unspecified; I10 Essential (primary) hypertension; K21.9 Gastro-esophageal reflux disease without esophagitis; E03.9 Hypothyroidism, unspecified; I25.10 Atherosclerotic heart disease of native coronary artery without angina pectoris
CPT/HCPCS: 36415; 80053; 80061; 82803; 85027; 85347; 92928; 93005; 93460; 99152; 99153; 99221; C1894; J7040; Q9967; C1725; C1751; C1760; C1769; C1874; C1887; C9600; G0378

== ENCOUNTER → 2023-07-03 | Outpatient (CLI) | payer MEDICARE, SELFPAY ==
[2023-07-03 10:58] LABS: BNP,B-Type NATRIURETIC PEPTIDE 64.7 pg/mL (0-100)
== END | disposition home or self-care (01) ==
LOC: LABSPEC 10:37
PROVIDERS: PCP Internal Medicine; Referring Provider Internal Medicine; Visit Provider Internal Medicine
DX: R06.09 Other forms of dyspnea (principal)
CPT/HCPCS: 83880

== ENCOUNTER → 2023-10-24 | Outpatient (CLI) | payer MEDICARE, SELFPAY ==
[2023-10-24 06:09] LABS: Absolute Lymphocyte Count 0.92 X10^3/uL (0.83-4.51); Absolute Neutrophil Count 3.6 X10^3/uL (2.0-7.7); Basophil# 0.06 X10^3/uL; Basophil% 1.1 % (0-1); Eosinophil# 0.49 X10^3/uL; Eosinophils% 8.7 % (0-5); Hematocrit 38.8 % (37-47); Hemoglobin 12.6 g/dL (12.0-15.0); Lymphocyte # 0.92 X10^3/ul (0.83-4.51); Lymphocyte % 16.4 % (19-41); Mean Corp Hgb Conc 32.5 g/dL (32-36); Mean Corpuscular Hgb 28.4 pg (27.0-32.0); Mean Corpuscular Volume 87.6 fL (81-99); Mean Platelet Vol. 9.3 fl (6.2-12.0); Monocyte# 0.51 X10^3/uL; Monocyte% 9.1 % (0-10); NRBC Flagged by Analyzer 0 % (0-5); Neutrophil # 3.62 X10^3/uL (2.7-7.7); Neutrophil % 64.5 % (47-70); Platelet Count 240 K/mm3 (150-450); RBC Distribution Width CV 12.7 % (11.6-14.6); RBC Distribution Width SD 40.9 fl (35.1-43.9); Red Blood Count 4.43 M/mm3 (4.2-5.4); White Blood Count 5.6 K/mm3 (4.4-11.0)
[2023-10-24 06:48] LABS: ALB/GLOB Ratio 1.1 RATIO (0.9-2.4); AST(SGOT) 24 U/L (15-37); Alanine Aminotransfer ALT/SGPT 22 U/L (13-56); Alkaline Phosphatase 66 U/L (45-117); Anion Gap 5 (5-15); BUN 17 mg/dL (7-18); Calcium,Total 9.3 mg/dL (8.5-10.1); Chloride 105 mmol/L (98-107); Cholesterol 157 mg/dL (200); EST Glomerular Filtration Rate 65 mL/min (>60); Est Glom Filt Rate - Afr Amer 79 mL/min (>60); Globulin 3.5 g/dL (2.2-4.2); Glucose 107 mg/dL (74-106); High Density Lipoprotein 51 mg/dL; Potassium 3.5 mmol/L (3.5-5.1); Protein, Total 7.5 g/dL (6.4-8.2); Sodium Level 137 mmol/L (136-145); Thyroid Stim Hormone (TSH) 1.71 uIU/mL (0.358-3.74); Triglycerides 117 mg/dL; Very Low Density Lipoprotein 23 mg/dL (5-40)
[2023-10-24 11:00] LABS: Hemoglobin A1c 5.8 % (3.8-5.6)
== END | disposition home or self-care (01) ==
LOC: LAB 05:56
PROVIDERS: PCP Internal Medicine; Referring Provider Internal Medicine; Visit Provider Internal Medicine
DX: E78.5 Hyperlipidemia, unspecified (principal); R73.01 Impaired fasting glucose; E03.9 Hypothyroidism, unspecified
CPT/HCPCS: 36415; 80053; 80061; 83036; 84443; 85025

== ENCOUNTER 2023-12-28 23:29 | Emergency (ER) | payer MEDICARE, SELFPAY ==
[2023-12-28 23:30] VITALS: BP 158/67; PULSE 64; RESP 18; TEMP 36.6; O2SAT 100; BMI 25.4
--- NOTE | 2023-12-29 00:45 | RAD_ITS ---
INDICATION: pain EXAMINATION/TECHNIQUE: X-RAY - RIGHT XR Foot Min 3 Views 3 VIEWS COMPARISON: FINDINGS: SOFT TISSUES: Possible edema of the first toe. No radiopaque foreign body. BONES/JOINTS: No acute fracture or subluxation.. Degenerative changes at the first metatarsophalangeal articulation. Preservation of the joint space.. No sclerotic or destructive changes observed. RAD/Foot min 3 Views IMPRESSION: Possible edema of the first toe. Degenerative changes of the first metatarsophalangeal articulation. Electronically Signed: Prince Blanchard DO at 1:06 EDT Reading Location ID and State: [facility] / [place] Tel [phone], Service support ,
[2023-12-29] MEDS: Colchicine 0.6 MG TABLET 1.2 MG PO (01:21)
--- NOTE | 2023-12-29 01:29 | EDS_ITS ---
HPI History of Present Illness Chief Complaint: Lower Extremity Injury Informant: patient and spouse/S.O. Narrative Narrative: Patient is a 78-year-old female with past medical history of hypertension hyperlipidemia hypothyroidism and coronary artery disease. She states that roughly 3 to 5 days ago after getting a massage she felt a sudden increase in pain along her right great toe after having her foot bent in an awkward fashion. She states since the onset of the pain she has had increased redness swelling and warmth. She states that it hurts to place a sock or shoe on and ambulate. He has concern for infection versus potential fracture and therefore comes in for evaluation [facility] Medical History (Updated 12/29/23 @ 04:[address] Fabien Hennessy, DO) Nonrheumatic mitral (valve) prolapse Dyspnea on exertion Nonrheumatic mitral (valve) insufficiency Rosacea Chest pain Diverticulitis of colon GERD (gastroesophageal reflux disease) Essential hypertension Hyperlipidemia Hypothyroidism Home Medications ?Medication ?Instructions ?Recorded ?Last Taken ?Type levothyroxine 100 mcg tablet 100 mcg PO DAILY thyroid 03/19/18 06/24/23 History ascorbic acid (vitamin C) 1,000 mg 1 g PO DAILY 08/18/21 Unknown History tablet cholecalciferol (vitamin D3) 25 25 mcg PO DAILY vitamin 08/18/21 Unknown History mcg (1,000 unit) capsule valsartan 80 1 tab PO DAILY blood pressure 08/18/21 Unknown History mg-hydrochlorothiazide 12.5 mg tablet zinc 50 mg capsule 50 mg PO DAILY supplement 08/18/21 Unknown History trazodone 100 mg tablet 100 mg PO QHS PRN sleep 06/24/23 Unknown History aspirin 81 mg tablet,delayed 81 mg PO DAILY@0800 #90 tabs 06/25/23 Unknown Rx release atorvastatin 20 mg tablet 20 mg PO QHS #90 tabs 06/25/23 Unknown Rx carvedilol 3.125 mg tablet 3.125 mg PO BID #180 tabs 06/25/23 Unknown Rx clopidogrel 75 mg tablet 75 mg PO DAILY #90 tabs 06/25/23 Unknown Rx colchicine 0.6 mg capsule 0.6 mg PO BID 7 days #14 caps 12/29/23 Unknown Rx Allergy/AdvReac Type Severity Reaction Status Date / Time No Known Allergies Allergy Verified 12/28/23 23:32 Family History Father Myocardial infarction, Onset Age: 78 Brother Hypertension Hyperlipidemia Cancer prostate Mother Hyperlipidemia Surgical History Hx of right and left heart catheterization (~06/24/23) Stented coronary artery (~06/24/23) History of colonoscopy History of breast biopsy Social History Smoking Status: Never smoker alcohol intake: never substance use type: does not use caffeine: Yes Type: coffee Number of servings: 3 ROS ROS ED Constitutional Constitutional ED: Denies chills or fever(s) ENT ENT ED: Denies sore throat Cardiovascular Cardiovascular: Denies chest pain Respiratory/Chest Respiratory/Chest: Denies cough or dyspnea Gastrointestinal Gastrointestinal: Denies abdominal pain, diarrhea, nausea or vomiting Genitourinary Genitourinary ED: Denies dysuria Musculoskeletal Musculoskeletal: Reports other Details: Positive right foot/toe pain Integumentary Reports other Details: Positive right foot/toe redness and swelling ; Denies Abrasions or rash Neurologic Neurologic: Denies headache(s) Hematologic/Lymphatic Hematologic/Lymphatic: Denies easy bleeding or easy bruising EXAM Physical Exam Const Vital Signs: 12/28/23 23:30 12/29/23 01:40 Temperature 97.8 F 97.9 F Temperature Source Temporal Pulse Rate 64 67 Respiratory Rate 18 18 Blood Pressure 158/67 H 134/66 H Blood Pressure Mean 97 88 Pulse Ox 100 100 Oxygen Delivery Method Room Air Positive well nourished and well developed General Appearance ED: well developed HEENT HEENT Narrative: Normocephalic atraumatic Eyes PERRL and EOMs intact bilaterally General Eye ED: Negative for scleral icterus Neck supple Resp normal respiratory effort and clear to auscultation bilaterally Cardio regular rate and regular rhythm Extremity Extremity Narrative: Right lower extremity is neurovascularly intact. Patient has asymmetric erythema warmth and swelling at the first MTP joint. There is pain with palpation at the site. Active and passive range of motion is decreased secondary to pain. No obvious bony deformity or joint effusion. No lymphangitic streaking. Remainder of the exam is normal Neuro oriented x3, CN's II-XII intact bilaterally and no sensory deficits noted Sensorium / Orientation: alert Psych mental status grossly normal Skin Skin Narrative: Soft tissue changes to the right great toe at the first MTP as documented above MDM MDM MDM Narrative Medical decision making narrative: Patient arrived to the ER mildly hypertensive otherwise with stable vitals. She reported right great toe pain redness and swelling that came on after having her foot bent in an awkward motion at a massage. Differential diagnosis is for fracture versus contusion versus ligamentous or tendon injury. However with the asymmetric erythema warmth there is concern for cellulitis versus abscess versus gout. An x-ray was obtained which revealed soft tissue swelling but no obvious bony abnormality. Based on the location of the redness and swelling at the first MTP this is most likely gout and as the patient is not febrile or have any streaking my concern for cellulitis or abscess is low. I do not feel there is need for further testing with blood work but mainly an x-ray to rule out acute fracture. X-ray revealed no obvious fracture and therefore patient be placed on colchicine secondary to her cardiac history and concern for gout and is otherwise safe for discharge History & Record Review Discussion w/independent historian: Patient and Significant other Radiography Diagnostic Testing: Clinical Impression(s) from Imaging Studies Foot X-Ray 12/29/23 00:45 IMPRESSION: Possible edema of the first toe. Degenerative changes of the first metatarsophalangeal articulation. Electronically Signed: Prince Blanchard DO at 1:06 EDT Reading Location ID and State: [facility] / [place] Tel [phone], Service support , X-ray of the right foot as interpreted by the emergency medicine physician reveals soft tissue swelling along the first metatarsal without acute fracture or dislocation Discharge Plan Triage Chief Complaint: Lower Extremity Injury ED Provider: Fabien Hennessy Dx/Rx/DC Orders Clinical Impression: Gout attack, Hypothyroidism, CAD (coronary artery disease), Essential hypertension Instructions: What Is Gout?, ED Gout Diet Prescriptions: New colchicine 0.6 mg capsule 0.6 mg PO BID 7 Days Qty: 14 0RF No Action valsartan-hydrochlorothiazide 80-12.5 mg tablet 1 tab PO DAILY ascorbic acid (vitamin C) 1,000 mg tablet 1 g PO DAILY cholecalciferol (vitamin D3) 25 mcg (1,000 unit) capsule 25 mcg PO DAILY zinc 50 mg capsule 50 mg PO DAILY levothyroxine 100 MCG tablet 100 mcg PO DAILY trazodone 100 mg tablet 100 mg PO QHS PRN Patient Comments: take 1 tablet by mouth at bedtime if needed, pt takes 50-100 mg atorvastatin 20 mg Tablet 20 mg PO QHS Qty: 90 2RF clopidogrel 75 mg Tablet 75 mg PO DAILY Qty: 90 3RF aspirin 81 mg Tablet,Delayed Release (Dr/Ec) 81 mg PO DAILY@0800 Qty: 90 2RF carvedilol 3.125 mg Tablet 3.125 mg PO BID Qty: 180 2RF Primary Care Provider: Lexi Maria Referrals: Lexi Maria DO [Primary Care Provider] - Activity Restrictions/Additional Instructions: Over the next few days you can take 3 ibuprofen and 2 extra strength Tylenol at the same time up to 4 times a day to help control pain. Use the colchicine as directed to dissolve the gouty crystals and return to the ER should you have any further concerns or worsening of symptoms Print Language: Taiwanese Disposition Disposition: Home, Self Care Discharge Date/Time: 12/29/23 01:41
[2023-12-29] MEDS: Colchicine 0.6 MG TABLET PO (01:37)
[2023-12-29 01:40] VITALS: BP 134/66; PULSE 67; RESP 18; TEMP 36.6; O2SAT 100
== END 2023-12-29 01:41 | disposition home or self-care (01) ==
PROVIDERS: Emergency Provider Emergency Medicine; PCP Internal Medicine; Visit Provider Emergency Medicine
DX: M10.9 Gout, unspecified (principal); I25.10 Atherosclerotic heart disease of native coronary artery without angina pectoris; I10 Essential (primary) hypertension; E78.5 Hyperlipidemia, unspecified; E03.9 Hypothyroidism, unspecified; Z79.82 Long term (current) use of aspirin; Z79.01 Long term (current) use of anticoagulants; Z79.890 Hormone replacement therapy; Z79.899 Other long term (current) drug therapy
CPT/HCPCS: 73630; 99282

== ENCOUNTER → 2024-01-02 | Outpatient (CLI) | payer MEDICARE, SELFPAY ==
--- NOTE | 2024-01-02 07:02 | BI_ITS ---
MAMMOGRAPHY - BILATERAL SCREENING REASON FOR EXAM: Female, 78 years old. Routine annual screening examination. PERTINENT HISTORY: Non-contributory. Remote left excisional breast biopsy. TECHNIQUE: Digital bilateral breast mert (3D mammographic acquisition) in the CC and MLO projections. 2-D mediolateral oblique (MLO) and craniocaudad (CC) views of both breasts were obtained. CAD: Full Field Digital Mammography with Computer Added Detection was performed. COMPARISON: Comparison is made with prior study dated December 31, 2022 and December 26, 2021. FINDINGS: Breast Composition: The breasts are heterogeneously dense, which may obscure small masses. There are no dominant masses or suspicious calcifications. No other significant abnormalities are identified. There has been no significant change since the prior study. BI/SCRN MAMM (CAD)W/MERT BILAT IMPRESSION: Stable bilateral screening mammogram. Yearly follow-up mammogram recommended. (A) ASSESSMENT CATEGORY: BIRADS Category 1: Negative. A letter regarding these results will be sent to the patient by the facility within 30 days. Approximately 10% of breast cancers are not detected by mammography. A normal mammogram should not delay biopsy of a clinically suspicious abnormality. [id number] Electronically Signed: Kvng Gilman MD at 8:07 EDT ,
== END | disposition home or self-care (01) ==
LOC: OPBI 07:02
PROVIDERS: PCP Internal Medicine; Referring Provider Internal Medicine; Visit Provider Internal Medicine
DX: Z12.31 Encounter for screening mammogram for malignant neoplasm of breast (principal)
CPT/HCPCS: 77063; 77067

== ENCOUNTER → 2024-02-01 | Outpatient (CLI) | payer MEDICARE, SELFPAY ==
[2024-02-01 09:14] LABS: Absolute Lymphocyte Count 0.94 X10^3/uL (0.83-4.51); Basophil# 0.04 X10^3/uL; Basophil% 0.7 % (0-1); Eosinophil# 0.31 X10^3/uL; Eosinophils% 5.4 % (0-5); Hematocrit 39.7 % (37-47); Hemoglobin 12.6 g/dL (12.0-15.0); Lymphocyte # 0.94 X10^3/ul (0.83-4.51); Lymphocyte % 16.3 % (19-41); Mean Corp Hgb Conc 31.7 g/dL (32-36); Mean Corpuscular Hgb 28.6 pg (27.0-32.0); Mean Platelet Vol. 9.6 fl (6.2-12.0); Monocyte# 0.43 X10^3/uL; Monocyte% 7.5 % (0-10); NRBC Flagged by Analyzer 0 % (0-5); Neutrophil # 4.01 X10^3/uL (2.7-7.7); Neutrophil % 69.8 % (47-70); Platelet Count 253 K/mm3 (150-450); RBC Distribution Width CV 12.5 % (11.6-14.6); Red Blood Count 4.41 M/mm3 (4.2-5.4); White Blood Count 5.8 K/mm3 (4.4-11.0)
[2024-02-01 09:36] LABS: Microalbumin,Random Urine < 5.0 mg/L (NO RANGE EST.)
[2024-02-01 09:58] LABS: ALB/GLOB Ratio 1.1 RATIO (0.9-2.4); AST(SGOT) 21 U/L (15-37); Alanine Aminotransfer ALT/SGPT 21 U/L (13-56); Albumin, Serum 3.8 g/dL (3.2-5.0); Alkaline Phosphatase 70 U/L (45-117); Anion Gap 4 (5-15); BUN 15 mg/dL (7-18); BUN/Creat Ratio 18.2 RATIO (10-20); Calcium,Total 9.6 mg/dL (8.5-10.1); Chloride 104 mmol/L (98-107); Cholesterol 159 mg/dL (200); Creatinine, Serum 0.82 mg/dL (0.55-1.02); EST Glomerular Filtration Rate 72 mL/min (>60); Est Glom Filt Rate - Afr Amer 87 mL/min (>60); Globulin 3.6 g/dL (2.2-4.2); Glucose 104 mg/dL (74-106); High Density Lipoprotein 48 mg/dL; Potassium 3.8 mmol/L (3.5-5.1); Protein, Total 7.4 g/dL (6.4-8.2); Sodium Level 138 mmol/L (136-145); Triglycerides 204 mg/dL; Very Low Density Lipoprotein 41 mg/dL (5-40)
[2024-02-01 11:11] LABS: Hemoglobin A1c 5.8 % (3.8-5.6)
== END | disposition home or self-care (01) ==
LOC: LAB 08:42
PROVIDERS: PCP Internal Medicine; Referring Provider Internal Medicine; Visit Provider Internal Medicine
DX: I10 Essential (primary) hypertension (principal); R73.01 Impaired fasting glucose; E78.5 Hyperlipidemia, unspecified; E55.9 Vitamin D deficiency, unspecified
CPT/HCPCS: 36415; 80053; 80061; 82043; 82306; 82570; 83036; 85025

== ENCOUNTER 2024-02-19 17:30 | Outpatient (RCR) | payer SELFPAY | END 2024-02-19 23:59 | LOC: NS 17:30 | PROVIDERS: PCP Internal Medicine | DX: Z71.3 Dietary counseling and surveillance (principal) ==

== ENCOUNTER → 2024-02-20 | Outpatient (CLI) | payer MEDICARE, SELFPAY ==
--- NOTE | 2024-02-20 07:12 | CT_ITS ---
STUDY: CT PELVIS WITH CONTRAST REASON FOR EXAM: Female, [address] Pelvis, wit contrast -- Pelvic pain in female RADIATION DOSAGE (If Supplied By Facility): CTDIvol = ( 25.90 ) mGy, DLP = ( 772.84 ) mGycm TECHNIQUE: Transaxial imaging of the pelvis was performed without oral contrast. IV 100mL Isovue-370 was administered intravenously. Multiplanar coronal and sagittal images were reformatted. Individualized dose optimization techniques were used for this CT. COMPARISON: None. FINDINGS: Normal urinary bladder. Normal visualized small intestine. There are multiple colonic diverticula of the sigmoid colon consistent with chronic diverticulosis. There is no pelvic fluid. There is no pelvic lymphadenopathy or mass lesion. There is diffuse atherosclerotic calcification of the pelvic arteries. Normal abdominal wall. Degenerative changes of the lower lumbar spine. CT/Pelvis WITH IV Contrast IMPRESSION: Sigmoid diverticulosis. Large amount of fecal material is seen in the distal colon. Electronically Signed: Kvng Gilman MD at 10:47 EDT ,
== END | disposition home or self-care (01) ==
LOC: CT 07:08
PROVIDERS: PCP Internal Medicine; Referring Provider Internal Medicine; Visit Provider Internal Medicine
DX: R10.2 Pelvic and perineal pain (principal)
CPT/HCPCS: 72193; Q9967

== ENCOUNTER → 2024-04-14 | Outpatient (CLI) | payer MEDICARE, SELFPAY ==
[2024-04-14 14:23] LABS: BNP,B-Type NATRIURETIC PEPTIDE 48.5 pg/mL (0-100)
== END | disposition home or self-care (01) ==
LOC: LAB 13:26
PROVIDERS: PCP Internal Medicine; Referring Provider Internal Medicine Pulmonary Disease; Visit Provider Internal Medicine Pulmonary Disease
DX: R06.02 Shortness of breath (principal); I27.20 Pulmonary hypertension, unspecified
CPT/HCPCS: 36415; 83880

== ENCOUNTER → 2024-05-07 | Outpatient (CLI) | payer MEDICARE, SELFPAY ==
[2024-05-07 06:39] LABS: Absolute Lymphocyte Count 0.89 X10^3/uL (0.83-4.51); Absolute Neutrophil Count 3.4 X10^3/uL (2.0-7.7); Basophil# 0.05 X10^3/uL; Basophil% 0.9 % (0-1); Eosinophil# 0.44 X10^3/uL; Eosinophils% 8.2 % (0-5); Hematocrit 38.5 % (37-47); Hemoglobin 12.7 g/dL (12.0-15.0); Lymphocyte # 0.89 X10^3/ul (0.83-4.51); Lymphocyte % 16.5 % (19-41); Mean Corpuscular Hgb 29.9 pg (27.0-32.0); Mean Corpuscular Volume 90.6 fL (81-99); Mean Platelet Vol. 9.5 fl (6.2-12.0); Monocyte% 11.2 % (0-10); NRBC Flagged by Analyzer 0 % (0-5); Neutrophil # 3.39 X10^3/uL (2.7-7.7); Platelet Count 249 K/mm3 (150-450); RBC Distribution Width SD 42.9 fl (35.1-43.9); Red Blood Count 4.25 M/mm3 (4.2-5.4); White Blood Count 5.4 K/mm3 (4.4-11.0)
[2024-05-07 07:20] LABS: ALB/GLOB Ratio 1.1 RATIO (0.9-2.4); AST(SGOT) 17 U/L (15-37); Alanine Aminotransfer ALT/SGPT 18 U/L (13-56); Albumin, Serum 3.8 g/dL (3.2-5.0); Alkaline Phosphatase 66 U/L (45-117); Anion Gap 4 (5-15); BUN 17 mg/dL (7-18); BUN/Creat Ratio 22.3 RATIO (10-20); Calcium,Total 9.5 mg/dL (8.5-10.1); Chloride 104 mmol/L (98-107); Cholesterol 146 mg/dL (200); Creatinine, Serum 0.76 mg/dL (0.55-1.02); EST Glomerular Filtration Rate 78 mL/min (>60); Est Glom Filt Rate - Afr Amer 94 mL/min (>60); Globulin 3.4 g/dL (2.2-4.2); Glucose 111 mg/dL (74-106); High Density Lipoprotein 48 mg/dL; Potassium 3.8 mmol/L (3.5-5.1); Protein, Total 7.2 g/dL (6.4-8.2); Sodium Level 139 mmol/L (136-145); Triglycerides 160 mg/dL; Very Low Density Lipoprotein 32 mg/dL (5-40)
[2024-05-07 07:50] LABS: Hemoglobin A1c 5.9 % (3.8-5.6)
--- NOTE | 2024-05-07 12:35 | ECHOD_ITS ---
Reason For Study: DYSPNEA Procedure This was a 2D Doppler, Color Flow transthoracic echocardiogram. Exam performed in department. Left Ventricle Normal LV size. Left ventricular systolic function is normal. The left ventricular ejection fraction is 65 %. Stage 1 diastolic dysfunction. No regional wall motion abnormalities noted. Right Ventricle Normal RV size. Normal systolic function. Atria Normal left atrium. Normal right atrium. Mitral Valve Normal mitral valve. Mild (1+) eccentric mitral valve insufficiency. Tricuspid Valve Normal tricuspid valve. Mild tricuspid valve insufficiency. Pulmonary artery systolic pressure is 30 mmHg. Aortic Valve Trisinus/trileaflet aortic valve. Mild focal aortic valve calcification. Mild (1+) aortic valve insufficiency. Pulmonic Valve Normal pulmonic valve. Great Vessels Normal aortic root. Pericardium/Pleural No pericardial effusion. MMode/2D Measurements & Calculations LVIDd: 4.3 cm IVSd: 1.1 cm LVOT diam: 1.8 cm LVIDs: 2.1 cm LVPWd: 1.1 cm LVOT area: 2.6 cm2 RVDd: 3.2 cm FS: 49.6 % asc Aorta Diam: 3.3 cm LAV(MOD-bp): 36.9 ml LVAd ap4: 16.2 cm2 LAV(MOD-bp) Indexed: 24.0 ml/m2 LVLd ap4: 6.4 cm LAV(MOD-sp2): 32.6 ml EDV(MOD-sp4): 33.9 ml LAV(MOD-sp4): 41.2 ml EDV(sp4-el): 35.0 ml LVAs ap4: 8.9 cm2 LVLs ap4: 5.3 cm ESV(MOD-sp4): 12.5 ml ESV(sp4-el): 12.6 ml EF(MOD-sp4): 63.1 % EF(sp4-el): 64.0 % LVAd ap2: 14.5 cm2 SV(MOD-sp4): 21.4 ml SV(MOD-sp2): 19.4 ml LVLd ap2: 6.1 cm EDV(MOD-sp2): 28.9 ml EDV(sp2-el): 29.4 ml LVAs ap2: 7.4 cm2 LVLs ap2: 4.9 cm ESV(MOD-sp2): 9.5 ml ESV(sp2-el): 9.6 ml EF(MOD-sp2): 67.1 % SV(sp4-el): 22.4 ml Ao sinus diam: 2.[address] Junction: 2.0 cm LA dimension(2D): 4.3 cm LA A4 area: 16.1 cm2 RA A4 area: 12.6 cm2 TAPSE: 2.0 cm Time Measurements MV dec time: 0.21 sec Doppler Measurements & Calculations MV E max dorian: 93.2 cm/sec Lat Peak E' Dorian: 9.2 cm/sec Med Peak E' Dorian: 7.6 cm/sec MV A max dorian: 117.0 cm/sec E/E' lat: 10.1 E/E' med: 12.3 MV E/A: 0.80 MV dec slope: 445.1 cm/sec2 Ao V2 max: 162.4 cm/sec AI max dorian: 376.2 cm/sec Ao max P.6 mmHg AI max P.6 mmHg Ao V2 mean: 112.5 cm/sec AI dec slope: 162.1 cm/sec2 Ao mean P.7 mmHg AI P1/2t: 679.8 msec Ao V2 VTI: 36.0 cm AV (velocity ratio): 0.70 ASHLEY(I,D): 1.8 cm2 ASHLEY(V,D): 1.8 cm2 LV V1 max: 109.9 cm/sec SV(LVOT): 65.0 ml PA V2 max: 89.8 cm/sec LV V1 max P.8 mmHg PA max PG (full): 1.6 mmHg LV V1 mean P.1 mmHg LV V1 mean: 67.5 cm/sec LV V1 VTI: 25.0 cm PI end-d dorian: 68.8 cm/sec TR max dorian: 262.7 cm/sec TR max P.6 mmHg ECHO/Echo Complete Interpretation Summary Normal LV size. Left ventricular systolic function is normal. The left ventricular ejection fraction is 65 %. Stage 1 diastolic dysfunction. Pulmonary artery systolic pressure is 30 mmHg. Mild (1+) aortic valve insufficiency. Ordering Physician: Blake Carbajal Referring Physician: Lexi Maria D.O. Performed By: Rola Bhat RDCS
== END | disposition home or self-care (01) ==
LOC: CVS 12:33
PROVIDERS: PCP Internal Medicine; Referring Provider Internal Medicine Cardiovascular Disease; Visit Provider Internal Medicine Cardiovascular Disease
DX: E78.5 Hyperlipidemia, unspecified (principal); R73.01 Impaired fasting glucose; R06.09 Other forms of dyspnea
CPT/HCPCS: 36415; 80053; 80061; 83036; 85025; 93306

== ENCOUNTER 2024-05-11 17:30 | Outpatient (RCR) | payer SELFPAY | END 2024-05-21 23:59 | LOC: NS 17:30 | PROVIDERS: PCP Internal Medicine | DX: Z71.3 Dietary counseling and surveillance (principal) ==

== ENCOUNTER → 2024-05-14 | Outpatient (CLI) | payer MEDICARE, SELFPAY ==
--- NOTE | 2024-05-14 09:27 | STEWCON_ITS ---
Reason For Study: CAD/ASHD Stress Results Stress Echocardiogram with Definity, Franko 143 Protocol: Protocol Maximum Predicted HR: bpm % Maximum Predicted Target HR: 122 bpm HR: 99 % DurationHeart Rate Stage (mm:ss) (bpm) BP Comment Baseline 60 148/70Patient denies chest pain. Stage 1 3:00 97 168/72Patient denies chest pain Stage 2 3:00 118 166/70Mild shortness of breath. No Chest Pain Stage 3 1:15 142 / Shortness of breath. Denies chest pain. Recovery 66 158/80Patient denies chest pain or shortness of breath Stress Duration: 7:15 mm:ss Maximum Stress HR: 142 bpm Baseline Echocardiogram Findings Stress Echo Wall motion Data Resting WM Intermediate WM Stress WM ECHO/Stress Test Echo W/Contrast Interpretation Summary Exercise stress echo. 79-year-old lady with a history of coronary artery diseas e. Resting EKG demonstrates sinus rhythm with a rate of 58 bpm no acute changes ar e noted resting blood pressure is 148/70 mmHg. The patient exercised according to regular Franko vladimir col for total duration of 7 minutes and 15 seconds completing 1 minute and [address] age III of the Franko protocol the maximum heart rate attained was 151 bpm which was 105% of maximum predicted heart rate the maximum workload was 10.1 metabolic equivalents. At rest there were no ST o r T wave changes noted suggest ischemia and at peak exercise no ST or T wave changes were noted suggest ischemia occasional premature ventricular complexes were noted during recovery. The peak blood pressure was 186/80 mmHg which was a normal blood pressure response to exercise. Stress echocardiogram. The resting echocardiogram performed with Definity enhancement demonstrated eje ction fraction of 55% with no wall motion abnormalities noted. At peak exercise there was thickening of all sol reduction of low ventricular cavity size and peaking of ejection fraction appro ximately 70% with no wall motion abnormalities noted. Conclusion: Exercise stress echo with no EKG criteria for ischemia at a high workload. Excellent functional capacity. Good blood pressure response to exercise. Ordering Physician: Blake Carbajal Referring Physician: Blake Carbajal Performed By: AB
== END | disposition home or self-care (01) ==
LOC: CVS 09:27
PROVIDERS: PCP Internal Medicine; Referring Provider Internal Medicine Cardiovascular Disease; Visit Provider Internal Medicine Cardiovascular Disease
DX: I25.10 Atherosclerotic heart disease of native coronary artery without angina pectoris (principal)
CPT/HCPCS: 93017; 93350; Q9957; A4216; C8928

== ENCOUNTER → 2024-08-21 | Outpatient (CLI) | payer MEDICARE, SELFPAY ==
--- NOTE | 2024-08-21 14:13 | US_ITS ---
PROCEDURE: PELVIC W/ TRANSVAGINAL REASON FOR EXAM: Pain COMPARISON: None. FINDINGS Uterus is anteverted and contains calcified fibroids the largest of which is noted measuring up to 1 cm. Uterus measures up to 5.7 cm. Nonspecific fluid distending the endometrial canal with a possible polyp anterior to the endometrium measuring up to 4 mm. Bilateral ovaries are normal with preserved vascular flow symmetrically. Endometrium measures 2 mm. Complex nabothian cysts are seen the largest measuring up to 1 cm. No fluid in the cul-de-sac. US/Pelvic w/ Transvaginal IMPRESSION: Calcified leiomyomatous uterus. Nonspecific fluid distending the endometrial c anal with a possible polyp anterior to the endometrium measuring up to 4 mm. Reading Location: [facility]
== END | disposition home or self-care (01) ==
PROVIDERS: PCP Internal Medicine; Referring Provider Internal Medicine; Visit Provider Internal Medicine
DX: R10.2 Pelvic and perineal pain (principal)
CPT/HCPCS: 76830; 76856

== ENCOUNTER → 2024-11-21 | Outpatient (CLI) | payer MEDICARE, SELFPAY ==
[2024-11-21 08:06] LABS: Absolute Lymphocyte Count 0.95 X10^3/uL (0.83-4.51); Absolute Neutrophil Count 3.8 X10^3/uL (2.0-7.7); Basophil# 0.04 X10^3/uL; Basophil% 0.7 % (0-1); Eosinophil# 0.35 X10^3/uL; Hematocrit 36.9 % (37-47); Lymphocyte # 0.95 X10^3/ul (0.83-4.51); Lymphocyte % 16.4 % (19-41); Mean Corp Hgb Conc 32.5 g/dL (32-36); Mean Corpuscular Hgb 29.1 pg (27.0-32.0); Mean Corpuscular Volume 89.3 fL (81-99); Mean Platelet Vol. 9.9 fl (6.2-12.0); Monocyte# 0.62 X10^3/uL; Monocyte% 10.7 % (0-10); NRBC Flagged by Analyzer 0 % (0-5); Neutrophil # 3.83 X10^3/uL (2.7-7.7); Neutrophil % 65.9 % (47-70); Platelet Count 244 K/mm3 (150-450); RBC Distribution Width CV 12.6 % (11.6-14.6); RBC Distribution Width SD 41.3 fl (35.1-43.9); Red Blood Count 4.13 M/mm3 (4.2-5.4); White Blood Count 5.8 K/mm3 (4.4-11.0)
[2024-11-21 08:31] LABS: ALB/GLOB Ratio 1.7 RATIO (0.9-2.4); AST(SGOT) 23 U/L (<=31); Alanine Aminotransfer ALT/SGPT 12 U/L (<=34); Albumin, Serum 4.4 g/dL (3.4-4.8); Alkaline Phosphatase 59 U/L (35-104); Anion Gap 11 (5-15); BUN 18 mg/dL (4-19); BUN/Creat Ratio 23.1 RATIO (10-20); Calcium,Total 9.7 mg/dL (7.6-11.0); Carbon Dioxide 27.3 mmol/L (21.0-32.0); Chloride 102 mmol/L (98-108); Creatinine, Serum 0.79 mg/dL (0.70-1.20); EST Glomerular Filtration Rate 78 (>60); Globulin 2.6 g/dL (2.2-4.2); Glucose 108 mg/dL (70-99); Potassium 3.8 mmol/L (3.3-5.1); Sodium Level 140 mmol/L (133-145); Total Bilirubin 0.57 mg/dL (0.00-1.30)
[2024-11-21 12:12] LABS: Cholesterol 150 mg/dL (<=200); High Density Lipoprotein 52 mg/dL; Low Density Lipoprotein Calc. 77 mg/dL; Triglycerides 108 mg/dL; Very Low Density Lipoprotein 22 mg/dL (5-40); cholesterol:hdl ratio screen 2.91
[2024-11-21 12:33] LABS: Hemoglobin A1c 5.9 % (<=5.6)
== END | disposition home or self-care (01) ==
LOC: LAB 06:51
PROVIDERS: PCP Internal Medicine; Referring Provider Internal Medicine; Visit Provider Internal Medicine
DX: E78.5 Hyperlipidemia, unspecified (principal); R73.01 Impaired fasting glucose
CPT/HCPCS: 36415; 80053; 80061; 83036; 85025

== ENCOUNTER → 2025-01-04 | Outpatient (CLI) | payer MEDICARE, SELFPAY ==
--- NOTE | 2025-01-04 07:04 | BI_ITS ---
EXAM: SCRN MAMM (CAD)W/MERT BILAT DATE: 01/04/2025 CLINICAL HISTORY: F, Age 79 y/o , SCRN MAMM (CAD)W/MERT BILAT No family history. History of remote left excisional breast biopsy. BREAST CANCER RISK ASSESSMENT: Not assessed. TECHNIQUE: Bilateral screening digital breast tomosynthesis with 2D and 3D images. Computer aided detection. COMPARISON: Prior exam(s) dated January 02, 2024.. FINDINGS: TISSUE DENSITY: The breast tissue is heterogeneously dense, which may obscure small masses. Bilateral Breast Mammographic Findings: No significant masses, calcifications or other abnormalities are identified. No suspicious masses, areas of developing architectural distortion, or suspicious calcifications. There has been no significant interval change. BI/SCRN MAMM (CAD)W/MERT BILAT IMPRESSION: OVERALL FINAL ASSESSMENT: BIRADS 1 NEGATIVE RECOMMENDATION: Routine annual follow-up in 1 Year A letter with findings and recommendations will be mailed to the patient. Reading Location: [place] [id number]
== END | disposition home or self-care (01) ==
LOC: OPBI 07:03
PROVIDERS: PCP Internal Medicine; Referring Provider Internal Medicine; Visit Provider Internal Medicine
DX: Z12.31 Encounter for screening mammogram for malignant neoplasm of breast (principal)
CPT/HCPCS: 77063; 77067

== ENCOUNTER → 2025-02-27 | Outpatient (CLI) | payer MEDICARE, SELFPAY ==
[2025-02-27 07:07] LABS: Mucous, Urine 0 SEEN /hpf (<or=2+)
[2025-02-27 08:12] LABS: Color, Urine Yellow (Yellow); Glucose, Dipstick Normal (Normal); Ketone-Dipstick Negative (Negative); Leukocyte Esterase-Dipstick Negative /ul (Negative); Nitrite-Dipstick Negative (Negative); Occult Blood-Urine 10 /ul (Negative); Protein-Dipstick 15 mg/dl (Negative); Specific Gravity, Urine 1.010 (1.002-1.030); Urine Bilirubin Dipstick Negative (Negative)
[2025-02-27 08:16] LABS: Hematocrit 37.0 % (37-47); Hemoglobin 12.2 g/dL (12.0-15.0); Immature Granulocytes Count 0.020 X10^3/uL (0.0-0.0); Mean Corp Hgb Conc 33.0 g/dL (32-36); Mean Corpuscular Volume 90.5 fL (81-99); Mean Platelet Vol. 9.9 fl (6.2-12.0); NRBC Flagged by Analyzer 0 % (0-5); Platelet Count 245 K/mm3 (150-450); RBC Distribution Width CV 13.0 % (11.6-14.6); RBC Distribution Width SD 42.8 fl (35.1-43.9); Red Blood Count 4.09 M/mm3 (4.2-5.4); White Blood Count 5.8 K/mm3 (4.4-11.0)
[2025-02-27 08:43] LABS: Creatinine, Urine (random) 84.50 mg/dL (28.00-217.00); Microalbumin,Random Urine < 12.0 mg/L (<20 mg/L)
[2025-02-27 08:48] LABS: Red Blood Cells-Urine 0-5 SEEN /hpf (0-5); Squamous Epithelial Cells - UA 0-5 SEEN /hpf (5-10)
[2025-02-27 08:58] LABS: Cholesterol 159 mg/dL (<=200); Low Density Lipoprotein Calc. 79 mg/dL; Triglycerides 121 mg/dL; Very Low Density Lipoprotein 24 mg/dL (5-40); cholesterol:hdl ratio screen 2.87
[2025-02-27 08:59] LABS: AST(SGOT) 29 U/L (<=31); Alanine Aminotransfer ALT/SGPT 15 U/L (<=34); Albumin, Serum 4.1 g/dL (3.4-4.8); Alkaline Phosphatase 58 U/L (35-104); Anion Gap 11 (5-15); BUN 16 mg/dL (4-19); BUN/Creat Ratio 18.3 RATIO (10-20); Calcium,Total 9.5 mg/dL (7.6-11.0); Carbon Dioxide 25.1 mmol/L (21.0-32.0); Chloride 101 mmol/L (98-108); Globulin 2.6 g/dL (2.2-4.2); Glucose 101 mg/dL (70-99); Potassium 4.0 mmol/L (3.3-5.1); Vitamin D,25 Hydroxy 68.6 ng/mL (30-100)
== END | disposition home or self-care (01) ==
LOC: LAB 06:58
PROVIDERS: PCP Internal Medicine; Referring Provider Internal Medicine; Visit Provider Internal Medicine
DX: I10 Essential (primary) hypertension (principal); E78.5 Hyperlipidemia, unspecified; E55.9 Vitamin D deficiency, unspecified; E03.9 Hypothyroidism, unspecified; R73.09 Other abnormal glucose
CPT/HCPCS: 36415; 80053; 80061; 81001; 82043; 82306; 82570; 83036; 84443; 85025

== ENCOUNTER → 2025-03-16 | Outpatient (CLI) | payer MEDICARE, SELFPAY ==
[2025-03-16 10:07] LABS: Color, Urine Yellow (Yellow); Glucose, Dipstick Normal (Normal); Ketone-Dipstick Negative (Negative); Leukocyte Esterase-Dipstick Negative /ul (Negative); Nitrite-Dipstick Negative (Negative); Occult Blood-Urine 10 /ul (Negative); Protein-Dipstick 15 mg/dl (Negative); Specific Gravity, Urine 1.015 (1.002-1.030); Urine Bilirubin Dipstick Negative (Negative)
== END | disposition home or self-care (01) ==
LOC: MTLAB 08:32
PROVIDERS: PCP Internal Medicine; Referring Provider Internal Medicine; Visit Provider Internal Medicine
DX: R31.9 Hematuria, unspecified (principal)
CPT/HCPCS: 81002; 87086; 87088

== ENCOUNTER 2025-04-08 08:15 | Outpatient (RCR) | payer MEDICARE, SELFPAY ==
[2025-03-25 08:25] VITALS: BP 133/64; PULSE 55; RESP 18; TEMP 36.8; BMI 24.4
[2025-04-01 09:37] VITALS: BP 137/60; PULSE 59; RESP 18; TEMP 36.1; BMI 24.4
[2025-04-08 08:15] VITALS: BP 158/71; PULSE 61; RESP 18; TEMP 35.8; BMI 24.4
== END 2025-04-08 08:31 | disposition home or self-care (01) ==
LOC: WC 08:15
PROVIDERS: PCP Internal Medicine; Referring Provider Internal Medicine; Visit Provider Internal Medicine
DX: S61.412A Laceration without foreign body of left hand, initial encounter (principal); I10 Essential (primary) hypertension; E78.5 Hyperlipidemia, unspecified; E03.9 Hypothyroidism, unspecified; W19.XXXA Unspecified fall, initial encounter; Z79.82 Long term (current) use of aspirin; Z79.890 Hormone replacement therapy; Z79.899 Other long term (current) drug therapy; Z91.81 History of falling
CPT/HCPCS: 11042; 99213; G0463

== ENCOUNTER → 2025-04-22 | Outpatient (CLI) | payer MEDICARE, SELFPAY ==
--- NOTE | 2025-04-22 07:49 | ECHOD_ITS ---
Reason For Study Reason For Study: PHTN Procedure This was a 2D Doppler, Color Flow transthoracic echocardiogram. Exam performed in department. Left Ventricle Normal size and thickness. The left ventricular ejection fraction is 65 %. Normal diastology for age. Right Ventricle Normal right ventricle. Atria The left and right atria are normal. Mitral Valve Mild (1+) mitral valve insufficiency. Tricuspid Valve Mild (1+) tricuspid valve insufficiency. Right ventricular systolic pressure estimated to be 31 mmHg. Aortic Valve Trisinus/trileaflet aortic valve. Mild focal calcification of the aortic valve. Mild aortic valve regurgitation. Pulmonic Valve Trivial pulmonic valve insufficiency. Great Vessels Normal sized aortic root. Pericardium/Pleural No pericardial effusion. MMode/2D Measurements & Calculations LVIDd: 4.8 cm IVSd: 0.86 cm Ao root diam: 3.2 cm LVIDs: 3.1 cm LVPWd: 0.89 cm LA dimension: 4.1 cm RVDd: 2.8 cm FS: 34.0 % LAV(MOD-bp): 42.9 ml LVAd ap4: 22.3 cm2 SV(MOD-sp4): 41.7 ml LAV(MOD-bp) Indexed: 28.2 ml/m2 LVLd ap4: 6.5 cm SI(MOD-sp4): 27.4 ml/m2 LAV(MOD-sp2): 41.9 ml EDV(MOD-sp4): 63.6 ml LAV(MOD-sp4): 43.5 ml EDV(sp4-el): 65.5 ml LVAs ap4: 11.9 cm2 LVLs ap4: 5.6 cm ESV(MOD-sp4): 21.8 ml ESV(sp4-el): 21.2 ml EF(MOD-sp4): 65.6 % EF(sp4-el): 67.7 % SV(sp4-el): 44.3 ml LA A4 area: 17.4 cm2 LA dimension(2D): 3.6 cm RA A4 area: 14.6 cm2 TAPSE: 2.1 cm Time Measurements MV dec time: 0.27 sec Doppler Measurements & Calculations MV E max dorian: 72.0 cm/sec Lat Peak E' Dorian: 8.6 cm/sec Med Peak E' Dorian: 6.2 cm/sec MV A max dorian: 105.7 cm/sec E/E' lat: 8.4 E/E' med: 11.6 MV E/A: 0.68 Ao V2 max: 177.2 cm/sec AI max dorian: 430.4 cm/sec LV V1 max: 122.8 cm/sec Ao max P.6 mmHg AI max P.1 mmHg LV V1 max P.0 mmHg AI dec slope: 247.2 cm/sec2 AI P1/2t: 509.9 msec PA V2 max: 100.9 cm/sec TR max dorian: 256.5 cm/sec TR max P.3 mmHg ECHO/Echo Complete Interpretation Summary The left ventricular ejection fraction is 65 %. Mild (1+) mitral valve insufficiency. Mild (1+) tricuspid valve insufficiency. Right ventricular systolic pressure estimated to be 31 mmHg. Mild focal calcification of the aortic valve. Mild aortic valve regurgitation. Ordering Physician: Braxton Peres V Referring Physician: RODGER YOU Performed By: Mayra Martinez RDCS
== END | disposition home or self-care (01) ==
PROVIDERS: PCP Internal Medicine; Referring Provider Internal Medicine Pulmonary Disease; Visit Provider Internal Medicine Pulmonary Disease
DX: I27.20 Pulmonary hypertension, unspecified (principal)
CPT/HCPCS: 93306

== ENCOUNTER → 2025-05-04 | Outpatient (CLI) | payer MEDICARE, SELFPAY ==
[2025-05-04 11:24] LABS: Anion Gap 10 (5-15); BUN 13 mg/dL (4-19); BUN/Creat Ratio 14.3 RATIO (10-20); Calcium,Total 10.0 mg/dL (7.6-11.0); Carbon Dioxide 28.9 mmol/L (21.0-32.0); Chloride 102 mmol/L (98-108); Glucose 114 mg/dL (70-99); Potassium 3.9 mmol/L (3.3-5.1)
== END | disposition home or self-care (01) ==
PROVIDERS: PCP Internal Medicine; Referring Provider Urology; Visit Provider Urology
DX: R31.29 Other microscopic hematuria (principal)
CPT/HCPCS: 36415; 80048

== ENCOUNTER → 2025-05-19 | Outpatient (CLI) | payer MEDICARE, SELFPAY ==
--- NOTE | 2025-05-19 17:39 | CT_ITS ---
PROCEDURE: CT/CT Abd/Pelvis W/WO Contrast
== END | disposition home or self-care (01) ==
LOC: CT 17:41
PROVIDERS: PCP Internal Medicine; Referring Provider Urology; Visit Provider Urology
DX: R31.29 Other microscopic hematuria (principal)
CPT/HCPCS: 74178; Q9967

== ENCOUNTER → 2025-06-04 | Outpatient (CLI) | payer MEDICARE, SELFPAY ==
[2025-06-04 09:04] LABS: Creatinine, Urine (random) 36.30 mg/dL (28.00-217.00); Microalbumin,Random Urine 57.3 mg/L (<20 mg/L)
[2025-06-04 09:19] LABS: AST(SGOT) 23 U/L (<=31); Alanine Aminotransfer ALT/SGPT 15 U/L (<=34); Albumin, Serum 4.4 g/dL (3.4-4.8); Alkaline Phosphatase 61 U/L (35-104); Anion Gap 9 (5-15); BUN 16 mg/dL (4-19); BUN/Creat Ratio 17.8 RATIO (10-20); Calcium,Total 9.8 mg/dL (7.6-11.0); Carbon Dioxide 29.4 mmol/L (21.0-32.0); Chloride 101 mmol/L (98-108); Cholesterol 149 mg/dL (<=200); Globulin 2.7 g/dL (2.2-4.2); Glucose 101 mg/dL (70-99); Low Density Lipoprotein Calc. 76 mg/dL; Potassium 4.1 mmol/L (3.3-5.1); Triglycerides 127 mg/dL; Very Low Density Lipoprotein 25 mg/dL (5-40); Vitamin D,25 Hydroxy 66.7 ng/mL (30-100); cholesterol:hdl ratio screen 2.97
== END | disposition home or self-care (01) ==
LOC: LAB 07:00
PROVIDERS: PCP Internal Medicine; Referring Provider Internal Medicine; Visit Provider Internal Medicine
DX: R73.09 Other abnormal glucose (principal); E03.9 Hypothyroidism, unspecified; E78.5 Hyperlipidemia, unspecified; E55.9 Vitamin D deficiency, unspecified
CPT/HCPCS: 36415; 80053; 80061; 82043; 82306; 82570; 83036; 84443